=== PATIENT | male | born 1945 | race Caucasian/White ===

== ENCOUNTER 2022-11-29 14:01 | Outpatient (OUT) | payer MEDICARE, SELFPAY ==
--- NOTE | 2022-11-29 | ECG_ITS ---
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
[2022-11-29 14:45] LABS: Basophils Absolute Auto 0.1 10^3/uL (0.0-0.1); Basophils Percent Auto 0.8 % (0.2-2.0); Eosinophils Absolute Auto 0.2 10^3/uL (0.0-0.7); Eosinophils Percent Auto 2.4 % (0.9-7.0); Hematocrit 35.3 % (42.0-54.0); Hemoglobin 11.7 g/dL (14.0-18.0); Immature Granulocytes Abs Auto 0.02 10^3/uL (0.00-0.03); Immature Granulocytes Pct Auto 0.3 % (0.0-0.5); Lymphocytes Absolute Auto 1.9 10^3/uL (1.2-3.8); Mean Corpuscular HGB Conc 33.1 g/dL (29.9-35.2); Mean Corpuscular Volume 93.6 fL (80.0-94.0); Mean Platelet Volume 9.5 fL (9.5-13.5); Monocytes Absolute Auto 0.5 10^3/uL (0.3-0.8); Monocytes Percent Auto 7.9 % (1.7-12.0); Neutrophils Absolute Auto 3.7 10^3/uL (1.4-6.5); Neutrophils Percent Auto 58.6 % (43.0-75.0); Platelet Count 191 10^3/uL (150-450); Red Blood Count 3.77 10^6/uL (4.70-6.10); Red Cell Distribution Width 14.8 % (11.0-15.0); White Blood Count 6.2 10^3/uL (4.0-11.0)
[2022-11-29 15:15] LABS: Percent Iron Saturation 35.8 %
[2022-11-29 15:20] LABS: Estimated Average Glucose 189 mg/dL; Glycohemoglobin A1C 8.2 % (4.5-6.2)
[2022-11-29 15:26] LABS: Anion Gap 14.5; BUN Creatinine Ratio 18.8; Calcium 8.9 mg/dL (8.5-10.1); Carbon Dioxide 23.8 mmol/L (21.0-32.0); Chloride 104 mmol/L (98-107); Estimated GFR (African America >60 (>=60); Estimated GFR (Non-African Ame >60 (>=60); Glucose 191 mg/dL (74-106); Potassium 4.3 mmol/L (3.5-5.1); Sodium 138 mmol/L (136-145); Thyroid Stimulating Hormone 0.902 uIU/mL (0.358-3.740)
== END 2022-11-29 14:02 ==
LOC: LAB 14:06
PROVIDERS: PCP Internal Medicine; Visit Provider Internal Medicine
DX: I10 Essential (primary) hypertension (principal); D64.9 Anemia, unspecified; E11.65 Type 2 diabetes mellitus with hyperglycemia
CPT/HCPCS: 36415; 80048; 82607; 82728; 82746; 83036; 83540; 83550; 84443; 85025; 93005

== ENCOUNTER 2022-11-30 09:38 | Emergency (ER) | payer MEDICARE, SELFPAY ==
[2022-11-30] VITALS (10 sets, daily range): BP systolic 122–171; BP diastolic 69–89; PULSE 62–85; RESP 14–24; TEMP 36.4; O2SAT 94–97; BMI 26.9
--- NOTE | 2022-11-30 10:02 | XR_ITS ---
The [address] [address] Patient Name: GRECIA MCCORD MRN: [id number] date: 1945 Sex: M Assigned Patient Location: ER Current Patient Location: ER Accession/Order Number: [id number] Exam Date: 11/30/2022 10:16 Report Date: 11/30/2022 10:27 At the request of: TIFFANY LIRIANO Procedure: XR chest 1V EXAM: XR chest 1V HISTORY: . dizziness . COMPARISON: None. TECHNIQUE: Single view of the chest FINDINGS: Heart and vascularity are unremarkable. Lungs are free of focal infiltrates. Grossly no bony abnormality is appreciated. IMPRESSION: No acute heart or lung disease identified. Electronically authenticated by: SHAYNE RAMIREZ Date: 11/30/2022 10:27
--- NOTE | 2022-11-30 10:02 | ECG_ITS ---
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
--- NOTE | 2022-11-30 10:04 | ED.GENADUL1 ---
HPI - General Adult General Chief complaint: Chest Pain Stated complaint: EVALUATION FOR EKG/ SUSPICIOUS ACTIVITY Time Seen by Provider: 11/30/22 09:56 Source: patient and family Mode of arrival: walk-in Limitations: no limitations History of Present Illness HPI narrative: patient has been feeling dizzy and experiencing shortness of breath over the last few days. Dr Wisdom did an EKG that revealed inverted T waves so he sent the patient to the ED for evaluation. The patient told me that the shortness of breath occurs when he is exerting himself and does not happen at rest. He has DM, HTN and high cholesterol but no cardiac history. About 20 years ago he ahd a cardiac cath - he told me it was normal . On questioning he admitted that he has had some episodes of chest pressure or tightness over the last month. No cough, fever or vomiting. No abdominal pain. Related Data Allergies Allergy/AdvReac Type Severity Reaction Status Date / Time No Known Drug Allergies Allergy Verified 11/30/22 09:46 [facility] Medical History (Updated 11/30/22 @ 12:13 by Tiffany Liriano) Surgical History (Updated 11/30/22 @ 09:57 by Shayne Acosta) Exam Narrative Exam Narrative: Nurses notes and vital signs reviewed and patient is not hypoxic. afebrile General: Well-appearing and in no apparent distress. Skin: Warm, dry, no pallor noted. No rash. Head: Normocephalic, atraumatic. Eye: Pupils are equal, round and EOMI. No scleral icterus. Ears, Nose, Mouth, and Throat: Oral mucosa is moist Cardiovascular: Regular Rate and Rhythm without murmur, gallop or rub. Respiratory: No accessory muscle use or respiratory distress. Lungs are clear to auscultation, no wheezing, rales or rhonchi Chest Wall: no tenderness Musculoskeletal: normal ROM, no calf or popliteal tenderness, no lower extremity edema/swelling GI: Abdomen is soft, non-distended. Normal bowel sounds. No tenderness to palpation. No rebound, guarding, or rigidity noted. Neurological: A&O x4. No cranial nerve dysfunction observed. No truncal ataxia. Moves all extremities. Sensation intact. Psychiatric: Cooperative and interactive. Normal mood and affect. Constitutional Vital Signs - 24 hr 11/30/22 09:42 11/30/22 09:45 11/30/22 09:45 Temperature 97.6 F Pulse Rate 71 Pulse Rate [Monitor] 85 Respiratory Rate 18 24 Blood Pressure 171/89 H Blood Pressure [Left Arm] 171/69 H Pulse Oximetry 95 95 96 Oxygen Delivery Method Room Air 11/30/22 10:34 11/30/22 09:45 11/30/22 10:26 Temperature Pulse Rate 74 68 Pulse Rate [Monitor] Respiratory Rate 14 22 Blood Pressure 171/89 H 127/83 H Blood Pressure [Left Arm] Pulse Oximetry 95 97 94 L Oxygen Delivery Method Room Air 11/30/22 10:30 11/30/22 10:45 11/30/22 11:00 Temperature Pulse Rate 66 62 67 Pulse Rate [Monitor] Respiratory Rate 18 23 17 Blood Pressure 125/77 H 124/80 H 127/81 H Blood Pressure [Left Arm] Pulse Oximetry 94 L 94 L 95 Oxygen Delivery Method 11/30/22 12:02 Temperature Pulse Rate 65 Pulse Rate [Monitor] Respiratory Rate 16 Blood Pressure 122/69 H Blood Pressure [Left Arm] Pulse Oximetry 96 Oxygen Delivery Method Course Vital Signs Vital signs: Vital Signs Temperature 97.6 F 11/30/22 09:42 Pulse Rate 85 11/30/22 09:42 Respiratory Rate 18 11/30/22 09:42 Blood Pressure 171/69 H 11/30/22 09:42 Pulse Oximetry 95 11/30/22 09:42 Oxygen Delivery Method Room Air 11/30/22 09:42 Temperature 97.6 F 11/30/22 09:42 Pulse Rate 65 11/30/22 12:02 Respiratory Rate 16 11/30/22 12:02 Blood Pressure 122/69 H 11/30/22 12:02 Pulse Oximetry 96 11/30/22 12:02 Oxygen Delivery Method Room Air 11/30/22 10:34 Medical Decision Making MDM Narrative Medical decision making narrative: Patient was placed on teletypesetter monitor and EKG obtained. Blood drawn and sent for evaluation. CXR obtained. Workup was negative. I discussed the results with Dr Wisdom and he recommended discharge and will manage the patient on an out-patient basis. I spoke with the and patient and informed them of the plan. IO emphasized that if the patient developed shortness of breath at rest, passed out, had return of chest pain or any other worrisome symptoms that he should return for ED evaluation. Lab Data Lab results reviewed: Yes I reviewed the patient's lab results Labs: Lab Results 11/30/22 Range/Units 09:53 WBC 5.8 (4.0-11.0) 10^3/uL RBC 4.21 L (4.70-6.10) 10^6/uL Hgb 13.0 L (14.0-18.0) g/dL Hct 39.4 L (42.0-54.0) % MCV 93.6 (80.0-94.0) fL MCH 30.9 (25.9-34.0) pg MCHC 33.0 (29.9-35.2) g/dL RDW 14.8 (11.0-15.0) % Plt Count 192 (150-450) 10^3/uL MPV 9.6 (9.5-13.5) fL Neut % (Auto) 57.7 (43.0-75.0) % Lymph % (Auto) 30.9 (20.5-60.0) % [place] % (Auto) 8.5 (1.7-12.0) % Eos % (Auto) 2.2 (0.9-7.0) % Baso % (Auto) 0.5 (0.2-2.0) % Neut # (Auto) 3.3 (1.4-6.5) 10^3/uL Lymph # (Auto) 1.8 (1.2-3.8) 10^3/uL [place] # (Auto) 0.5 (0.3-0.8) 10^3/uL Eos # (Auto) 0.1 (0.0-0.7) 10^3/uL Baso # (Auto) 0.0 (0.0-0.1) 10^3/uL Abs Immat Gran (auto) 0.01 (0.00-0.03) 10^3/uL Imm/Tot Granulo (auto) 0.2 (0.0-0.5) % Sodium 137 (136-145) mmol/L Potassium 4.5 (3.5-5.1) mmol/L Chloride 102 (98-107) mmol/L Carbon Dioxide 23.9 (21.0-32.0) mmol/L Anion Gap 15.6 BUN 14.0 (7.0-18.0) mg/dL Creatinine 0.80 (0.70-1.30) mg/dL Est GFR ( Amer) >60 (>=60) Est GFR (Non-Af Amer) >60 (>=60) BUN/Creatinine Ratio 17.5 Glucose 175 H (74-106) mg/dL Calcium 9.1 (8.5-10.1) mg/dL Troponin I High Sens 4.2 (4.0-76.1) pg/mL NT-Pro-B Natriuret Pep 47.0 (<=1800.0) pg/mL Imaging Data Chest x-ray: Attestation: I have reviewed the pertinent imaging results. Radiologist's impression: Patient Name: GRECIA MCCORD MRN: [facility]:[id number] date: 1945 Sex: M Assigned Patient Location: ER Current Patient Location: ER Accession/Order Number: [id number] Exam Date: 11/30/2022 10:16 Report Date: 11/30/2022 10:27 At the request of: TIFFANY LIRIANO Procedure: XR chest 1V EXAM: XR chest 1V HISTORY: . dizziness . COMPARISON: None. TECHNIQUE: Single view of the chest FINDINGS: Heart and vascularity are unremarkable. Lungs are free of focal infiltrates. Grossly no bony abnormality is appreciated. IMPRESSION: No acute heart or lung disease identified. Electronically authenticated by: SHAYNE RAMIREZ Date: 11/30/2022 10:27 ECG Data Attestation: ?I have reviewed the pertinent ECG results. Interpretation: EKG interpretation: Emergency Department physician interpretation. Normal sinus rhythm at 72bpm. Normal axis, normal intervals and non-specific changes without ST segment elevation or depression. Lead III T wave is flat but no T wave inversion is noted. Similar to EKG from 08/14/16 Discharge Plan Discharge Chief Complaint: Chest Pain Clinical Impression: Exertional dyspnea, Dizziness Patient Disposition: Home, Self-Care Time of Disposition Decision: 12:12 Instructions: Dyspnea (ED), Dizziness (ED) Stand Alone Forms: Portal Instructions Referrals: Luis Enrique Wisdom DO [Primary Care Provider] - 1 week
[2022-11-30 10:10] LABS: Basophils Percent Auto 0.5 % (0.2-2.0); Eosinophils Absolute Auto 0.1 10^3/uL (0.0-0.7); Eosinophils Percent Auto 2.2 % (0.9-7.0); Hematocrit 39.4 % (42.0-54.0); Immature Granulocytes Abs Auto 0.01 10^3/uL (0.00-0.03); Immature Granulocytes Pct Auto 0.2 % (0.0-0.5); Lymphocytes Absolute Auto 1.8 10^3/uL (1.2-3.8); Lymphocytes Percent Auto 30.9 % (20.5-60.0); Mean Corpuscular Hemoglobin 30.9 pg (25.9-34.0); Mean Corpuscular Volume 93.6 fL (80.0-94.0); Mean Platelet Volume 9.6 fL (9.5-13.5); Monocytes Absolute Auto 0.5 10^3/uL (0.3-0.8); Monocytes Percent Auto 8.5 % (1.7-12.0); Neutrophils Absolute Auto 3.3 10^3/uL (1.4-6.5); Neutrophils Percent Auto 57.7 % (43.0-75.0); Platelet Count 192 10^3/uL (150-450); Red Blood Count 4.21 10^6/uL (4.70-6.10); Red Cell Distribution Width 14.8 % (11.0-15.0); White Blood Count 5.8 10^3/uL (4.0-11.0)
[2022-11-30] MEDS: 0.9 % SODIUM CHLORIDE 1,000 ML 1000 ML IV (10:24)
[2022-11-30 10:32] LABS: Anion Gap 15.6; BUN Creatinine Ratio 17.5; Calcium 9.1 mg/dL (8.5-10.1); Carbon Dioxide 23.9 mmol/L (21.0-32.0); Chloride 102 mmol/L (98-107); Estimated GFR (African America >60 (>=60); Estimated GFR (Non-African Ame >60 (>=60); Glucose 175 mg/dL (74-106); Potassium 4.5 mmol/L (3.5-5.1); Sodium 137 mmol/L (136-145); Troponin I High Sensitivity 4.2 pg/mL (4.0-76.1)
== END 2022-11-30 12:28 | disposition home or self-care (01) ==
PROVIDERS: Emergency Provider Emergency Medicine; PCP Internal Medicine
DX: R06.09 Other forms of dyspnea (principal); R42 Dizziness and giddiness; E11.9 Type 2 diabetes mellitus without complications; I10 Essential (primary) hypertension; E78.00 Pure hypercholesterolemia, unspecified
CPT/HCPCS: 36415; 71045; 80048; 83880; 84484; 85025; 93005; 99285

== ENCOUNTER 2022-12-15 07:48 | Outpatient (OUT) | payer MEDICARE, SELFPAY ==
--- NOTE | 2022-12-15 07:52 | MR_ITS ---
The [address] [address] Patient Name: GRECIA MCCORD MRN: [id number] date: 1945 Sex: M Assigned Patient Location: US Current Patient Location: US Accession/Order Number: [id number] Exam Date: 12/15/2022 08:30 Report Date: 12/15/2022 09:26 At the request of: RITA ZHAO Procedure: MR head/brain wo con EXAM: MR head/brain wo con HISTORY: Type 2 Diabetes E11.65, Dizziness R42 COMPARISON: None. TECHNIQUE: Multiplanar multisequence MR imaging of the brain was performed without intravenous contrast FINDINGS: Calvarium/skull base: No focal marrow replacing lesion suggestive of neoplasm. Trace left greater than right mastoid fluid. Orbits: Bilateral sauk-su[place]attle ocular lens replacements. Paranasal sinuses: Imaged portions clear Brain: No restricted diffusion. No significant white matter disease. Parenchymal volume is grossly appropriate. No mass effect, hemorrhage, or hydrocephalus. Grossly normal flow-related signal in the major intracranial arteries and dural sinuses. IMPRESSION: No acute intracranial process. Electronically authenticated by: DIANA CALDWELL Date: 12/15/2022 09:26
--- NOTE | 2022-12-15 07:53 | US_ITS ---
[address] [address] Patient Name: GRECIA MCCORD MRN: [id number] date: 1945 Sex: M Assigned Patient Location: Current Patient Location: US Accession/Order Number: [id number] Exam Date: 12/15/2022 07:55 Report Date: 12/15/2022 09:43 At the request of: RITA ZHAO Procedure: US carotid duplex BI EXAMINATION: US carotid duplex BI HISTORY: Palpitation R00.2, Dizziness R42 COMPARISON: No relevant comparison available. TECHNIQUE: Duplex Doppler ultrasound analysis of carotid and vertebral arteries. . Bilateral carotid arterial duplex examination was performed using B-mode, color flow and spectral analysis. Carotid stenosis is reported according to validated velocity parameters, similar to NASCET criteria. FINDINGS: RIGHT CAROTID ARTERY: No visible stenosis or significant plaque. RIGHT VERTEBRAL: Antegrade flow. Subclavian: PSV: 149.6 cm/s EDV: 0.0 cm/s CCA: Prox: PSV: 85.4 cm/s EDV: 17.6 cm/s Mid: PSV: 87.9 cm/s EDV: 18.0 cm/s Distal: PSV: 67.7 cm/s EDV: 14.5 cm/s BULB: PSV: 47.3 cm/s EDV: 8.9 cm/s ICA: Prox: PSV: 68.8 cm/s EDV: 16.0 cm/s Mid: PSV: 78.7 cm/s EDV: 22.6 cm/s Distal: PSV: 100.4 cm/s EDV: 25.4 cm/s ECA: PSV: 112.1 cm/s EDV: 7.2 cm/s VERTEBRAL: PSV: 42.0 cm/s EDV: 12.9 cm/s ICA/CCA ratio: PSV: 1.5 EDV: 1.8 LEFT CAROTID ARTERY: No visible stenosis or significant plaque. LEFT VERTEBRAL: Antegrade flow. Subclavian: PSV: 214.2 cm/s EDV: 0.0 cm/s CCA: Prox: PSV: 106.2 cm/s EDV: 21.5 cm/s Mid: PSV: 110.2 cm/s EDV: 23.5 cm/s Distal: PSV: 82.6 cm/s EDV: 17.5 cm/s BULB: PSV: 72.7 cm/s EDV: 13.6 cm/s ICA: Prox: PSV: 102.3 cm/s EDV: 25.4 cm/s Mid: PSV: 96.3 cm/s EDV: 35.3 cm/s Distal: PSV: 82.6 cm/s EDV: 31.3 cm/s ECA: PSV: 112.1 cm/s EDV: 11.6 cm/s VERTEBRAL: PSV: 52.3 cm/s EDV: 9.5 cm/s ICA/CCA ratio: PSV: 1.2 EDV: 1.4 IMPRESSION: 1. 0-49% flow stenosis within the right left carotid arteries. 2. No significant atherosclerotic disease. Electronically authenticated by: GERTRUDE VALENTINO Date: 12/15/2022 09:43
--- NOTE | 2022-12-15 10:23 | CA_ITS ---
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
--- NOTE | 2022-12-15 10:23 | CA_ITS ---
Patient: GRECIA MCCORD Exam Date: 12/15/2022 : 1945 Gender:M Ordering : DR Luis Enrique Wisdom D.O. Admission #: [id number] Family : Order #: [id number] CLICK HERE TO VIEW EXAM ECHOCARDIOGRAM REPORT PROCEDURE: CA ECHO DOPPLER COMPLETE INDICATIONS: Hypertension, Dizziness, Palpitation, Diabetes COMPARISON: None. DESCRIPTION: COMPLETE ECHOCARDIOGRAM Real-time transthoracic echocardiography with 2D, M-mode, spectral and color flow Doppler performed. QUALITY: Technical quality was good. LEFT VENTRICLE: Normal chamber size. Normal left ventricular wall thickness. Normal systolic function. LV EF: Normal left ventricular ejection fraction, (60%). DIASTOLIC: Diastolic function is indeterminate. ATRIAL SEPTUM: Visually appears intact. LEFT ATRIUM: Moderate dilatation. RIGHT ATRIUM: Moderate dilatation. RIGHT VENTRICLE: Normal chamber size. Normal right ventricular systolic function. TRICUSPID VALVE: Normal mobility and thickness. No stenosis with mild to moderate regurgitation. Doppler studies reveal mildly (35-45) elevated right sided pressures. RVSP 39 mmHg MITRAL VALVE: Mildly thickened with normal mobility. No evidence of mitral valve stenosis. There is no mitral annular calcification. No mitral regurgitation. AORTIC VALVE: Normal trileaflet appearance. No visible sclerosis. Normal leaflet mobility. No evidence of aortic valve stenosis. No aortic regurgitation. AORTIC ROOT: Normal diameter and appearance. PULMONIC VALVE: Normal thickness and mobility. No stenosis. Trivial regurgitation. PERICARDIUM: No evidence of pericardial effusion. IVC: Collapses with inspirations. Normal in size. PLEURA: CONCLUSION: 1. Normal ventricular systolic function. LVEF is 60%. 2. Moderate biatrial dilatation. 3. Mild to moderate tricuspid regurgitation. 4. Mildly elevated right-sided pressures. Adult Echocardiography Procedure Report Left Ventricle LVEDD (3.7 - 5.6 cm): 4.60 cm LVESD (2.2 - 4.0 cm): 2.94 cm LVIVS thickness (0.6 - 1.2 cm): 0.87 cm LVPW thickness (0.5 - 1.0 cm): 0.98 cm e': 0.10 m/s E - e': 7.83 LVOT Max Gradient: 5.08 mm[Hg] LVOT Area (cm2): 1.13 m/s Peak Velocity (LVOT): 1.13 m/s Mean Velocity (LVOT): 0.75 m/s LVOT Diameter 2.28 cm Left Atrium LA Volume Index (2D A2C): 44.02 ml/m2 Left Atrium Systolic Dimension: 4.05 cm Mitral Valve MV E to A Ratio: 1.00 Mitral Valve A-Wave Peak Velocity: 0.80 m/s Mitral Valve E-Wave Peak Velocity: 0.81 m/s Right Ventricle Aorta AO Root Diam: 3.46 cm Ascending Ao Diam: 2.86 cm Aortic Valve AoV Area (Peak Espinoza): 3.11 cm2, 3.11 cm2 Peak Velocity(Antegrade Flow): 1.48 m/s Peak Gradient(Antegrade Flow): 8.78 mm[Hg] Tricuspid Valve Peak Velocity (Regurgitant Flow): 2.93 m/s, 2.92 m/s, 2.99 m/s Pulmonic Valve Peak Velocity: 1.13 m/s Peak Gradient: 5.01 mm[Hg], 5.21 mm[Hg] Right Atrium Right Atrium Systolic Pressure: 56.09 ml, 56.09 ml Dictated by: Catracho Mancia M.D. on 12/16/2022 at 18:41 Approved by: Catracho Mancia M.D. on 12/16/2022 at 18:44
== END 2022-12-15 07:49 | disposition home or self-care (01) ==
LOC: US 07:49
PROVIDERS: PCP Internal Medicine; Visit Provider Internal Medicine
DX: E11.65 Type 2 diabetes mellitus with hyperglycemia (principal); I10 Essential (primary) hypertension; R42 Dizziness and giddiness; R00.2 Palpitations
CPT/HCPCS: 70551; 93242; 93306; 93880

== ENCOUNTER 2023-04-10 10:20 | Outpatient (OUT) | payer MEDICARE, SELFPAY ==
[2023-04-10 10:47] LABS: Basophils Percent Auto 0.7 % (0.2-2.0); Eosinophils Absolute Auto 0.1 10^3/uL (0.0-0.7); Eosinophils Percent Auto 2.4 % (0.9-7.0); Hemoglobin 11.8 g/dL (14.0-18.0); Immature Granulocytes Abs Auto 0.02 10^3/uL (0.00-0.03); Immature Granulocytes Pct Auto 0.4 % (0.0-0.5); Lymphocytes Percent Auto 36.6 % (20.5-60.0); Mean Corpuscular HGB Conc 32.8 g/dL (29.9-35.2); Mean Corpuscular Hemoglobin 31.1 pg (25.9-34.0); Mean Platelet Volume 9.9 fL (9.5-13.5); Monocytes Absolute Auto 0.5 10^3/uL (0.3-0.8); Monocytes Percent Auto 9.3 % (1.7-12.0); Neutrophils Absolute Auto 2.8 10^3/uL (1.4-6.5); Neutrophils Percent Auto 50.6 % (43.0-75.0); Platelet Count 157 10^3/uL (150-450); Red Blood Count 3.79 10^6/uL (4.70-6.10); Red Cell Distribution Width 12.7 % (11.0-15.0); White Blood Count 5.5 10^3/uL (4.0-11.0)
[2023-04-10 11:47] LABS: Percent Iron Saturation 25.1 %
[2023-04-10 11:52] LABS: Alanine Aminotransferase 21 U/L (16-63); Albumin Globulin Ratio 1.1; Albumin Level 3.8 g/dL (3.4-5.0); Alkaline Phosphatase 81 U/L (46-116); Anion Gap 14.3; Aspartate Amino Transferase 14 U/L (15-37); BUN Creatinine Ratio 17.6; Bilirubin Total 0.5 mg/dL (0.2-1.0); Calcium 8.7 mg/dL (8.5-10.1); Carbon Dioxide 25.8 mmol/L (21.0-32.0); Chloride 102 mmol/L (98-107); Estimated GFR (African America >60 (>=60); Estimated GFR (Non-African Ame >60 (>=60); Globulin 3.5 g/dL; Glucose 186 mg/dL (74-106); Potassium 4.1 mmol/L (3.5-5.1); Sodium 138 mmol/L (136-145); Total Protein 7.3 g/dL (6.4-8.2)
== END 2023-04-10 10:21 | disposition home or self-care (01) ==
PROVIDERS: PCP Internal Medicine; Visit Provider Internal Medicine
DX: D64.89 Other specified anemias (principal); R19.5 Other fecal abnormalities
CPT/HCPCS: 36415; 80053; 82728; 83540; 83550; 85025

== ENCOUNTER 2023-06-27 08:37 | Outpatient (OUT) | payer MEDICARE, SELFPAY ==
--- OUTSIDE RECORDS SUMMARY | 2023-06-27 08:43 | XMS_ITS | CCD ---
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 Name Role Phone PAVEL, DR SALINAS Attending Unavailable BALL, DR SALINAS Consulting Unavailable BALL, DR SALINAS Primary Care Unavailable BALL, DR SALINAS Admitting Unavailable BALL, DR SALINAS Consulting Unavailable BALL, DR SALINAS Primary Care Unavailable BALL, DR SALINAS Admitting Unavailable BALL, DR SALINAS Attending Unavailable BALL, DR SALINAS Consulting Unavailable BALL, DR SALINAS Primary Care Unavailable BALL, DR SALINAS Admitting Unavailable BALL, DR SALINAS Attending Unavailable BALL, DR SALINAS Attending Unavailable BALL, DR SALINAS Consulting Unavailable BALL, DR SALINAS Primary Care Unavailable BALL, DR SALINAS Admitting Unavailable Ball, Luis Enrique Unavailable Allergies Allergy Classification Reported Allergen(s) Allergy Type Date of Onset Reaction(s) Facility (12 sources) Indomethacin Drug Allergy Unknown [place] Other Medications Current Medications Medication Drug Class(es) Dates Sig (Normalized) Sig (Original) 24 hr alfuzosin hydrochloride 10 mg extended release oral tablet (3 sources) alpha-Adrenergic Sydney Alfuzosin HCl ER 10 MG TAKE 1 TABLET EVERY DAY for 90 Active baclofen 10 mg oral tablet (12 sources) gamma-Aminobutyric Acid-ergic Agonist take 1 tablet by mouth every twelve hours Baclofen 10 MG 1 tablet as needed Orally Twice a day Active 0.5 ml dulaglutide 1.5 mg/ml auto-injector (5 sources) GLP-1 Receptor Agonist Start: 04-10-2023 Trulicity 0.75 MG/0.5ML as directed Subcutaneous weekly for 28 days Mar, Active escitalopram 5 mg oral tablet (12 sources) Serotonin Reuptake Inhibitor Escitalopram Oxalate 5 MG TAKE 1 TABLET AT BEDTIME for 90 Active glimepiride 4 mg oral tablet (12 sources) Sulfonylurea Glimepiride 4 MG TAKE 1 TABLET EVERY DAY 30 MINUTES BEFORE BREAKFAST for 90 Active lisinopril 5 mg oral tablet (3 sources) Angiotensin Converting Enzyme Inhibitor take 1 tablet by mouth every twenty-four hours Lisinopril 5 MG 1 tablet Orally Once a day Active omeprazole 20 mg delayed release oral capsule (12 sources) Proton Pump Inhibitor Omeprazole 20 MG TAKE 1 CAPSULE EVERY DAY ON AN EMPTY STOMACH FOLLOWED IN 30 MINUTES BY BREAKFAST Active pioglitazone 30 mg oral tablet (12 sources) Peroxisome Proliferator Receptor alpha Agonist, Peroxisome Proliferator Receptor gamma Agonist, Thiazolidinedione take 1 tablet by mouth once daily Pioglitazone HCl 30 MG TAKE 1 TABLET BY MOUTH EVERY DAY Active simvastatin 10 mg oral tablet (12 sources) HMG-CoA Reductase Inhibitor take 1 tablet by mouth every twenty-four hours Simvastatin 10 MG 1 tablet in the evening Orally Once a day Active triamcinolone acetonide 1 mg/ml topical cream (12 sources) Corticosteroid Triamcinolone Acetonide 0.1 % 1 application Externally Two times a Week Active Triamcinolone Ac etonide 0.1 % 1 application Externally Two times a Week Active True Metrix Blood Glucose Te st - (12 sources) True Metrix Bloo d Glucose Test - USE TO TEST BLOOD SUGAR ONCE DAILY for 50 Active True Metrix Bloo d Glucose Test - as directed In Vitro Active Problems Active Problems Problem Classification Problem Date Documented Da te Episodic/Chronic Acute bronchitis (12 sources) Acute bronchitis; Translations: [Acute bronchitis due to other specified organisms] Episodic Anxiety disorders (10 sources) Generalized anxiety disorder; Translations: [Generalized anxiety disorder] Chronic Conditions associated with dizziness or vertigo (1 source) Dizziness and giddiness Episodic Deficiency and other anemia (11 sources) Chronic anemia; Translations: [Anemia in other chronic diseases classified elsewhere] Chronic Deficiency and other anemia (1 source) Anemia in other chronic diseases classified elsewhere; Translations: [Anemia in other chronic diseases classified elsewhere] Chronic Deficiency and other anemia (6 sources) Iron deficiency anemia, unspecified; Translations: [IRON DEFICIENCY ANEMIA UNSPECIFIED] Onset: 03-31-2022 Episodic Deficiency and other anemia (5 sources) Other specified anemias; Translations: [OTHER SPECIFIED ANEMIAS] Onset: 04-05-2022 Episodic Deficiency and other anemia (14 sources) Anemia; Translations: [Other specified anemias] Episodic Deficiency and other anemia (13 sources) Iron deficiency anemia; Translations: [Iron deficiency anemia, unspecified] Episodic Diabetes mellitus with complications (20 sources) Type 2 diabetes mellitus with hyperglycemia; Translations: [Hyperglycemia due to type 2 diabetes mellitus] Onset: 09-27-2021 Chronic Disorders of lipid metabolism (20 sources) Mixed hyperlipidemia; Translations: [Mixed hyperlipidemia] Onset: 06-12-1959 Chronic Esophageal disorders (10 sources) Moulton's esophagus; 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] Chronic Essential hypertension (20 sources) Essential (primary) hypertension; Translations: [Essential hypertension] Onset: 01-11-2022 Chronic Genitourinary symptoms and ill-defined conditions (12 sources) Dysuria; Translations: [Dysuria] Episodic Hyperplasia of prostate (16 sources) Lower urinary tract symptoms due to benign prostatic hypertrophy; Translations: [Benign prostatic hyperplasia with lower urinary tract symptoms] Chronic Immunizations and screening for infectious disease (3 sources) Vaccination given; Translations: [Encounter for immunization] Episodic Mood disorders (2 sources) Depression; Translations: [Depression, unspecified] Onset: 05-20-2014 Chronic Mood disorders (1 source) Mood disorders; Translations: [Depression, unspecified] Onset: 05-20-2014 Mycoses (12 sources) Candidal balanitis; Translations: [Candidal balanitis] Episodic Osteoarthritis (3 sources) Idiopathic osteoarthritis; 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, right knee] Onset: 05-15-2018 Chronic Other aftercare (11 sources) H/O: high risk medication; Translations: [Other usp (current) drug therapy] Episodic Other aftercare (3 sources) Long-term current use of drug therapy; Translations: [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] Episodic Other aftercare (1 source) Other usp (current) drug therapy; Translations: [High risk medication use] Episodic Other circulatory disease (1 source) Other specified symptoms and signs involving the circulatory and respiratory systems Episodic Other gastrointestinal disorders (1 source) Other fecal abnormalities Episodic Other injuries and conditions due to external causes (3 sources) History of fall; Translations: [History of falling] Episodic Other screening for suspected conditions (not mental disorders or infectious disease) (4 sources) Raised prostate specific antigen; Translations: [Elevated prostate specific antigen [PSA]] Onset: 11-15-2016 Episodic Other skin disorders (12 sources) Asteatosis cutis; Translations: [Xerosis cutis] Episodic Other upper respiratory disease (6 sources) Allergic rhinitis; Translations: [Other allergic rhinitis] Onset: 01-25-2019 Chronic Residual codes; unclassified (15 sources) Tobacco user; Translations: [Tobacco use] Episodic Spondylosis; intervertebral disc disorders; other back problems (15 sources) Lumbar spondylosis; Translations: [Spondylosis without myelopathy or radiculopathy, lumbar region] Chronic Substance-related disorders (14 sources) Tobacco user; Translations: [Nicotine dependence, cigarettes, in remission] Chronic Past or Other Problems Problem Classification Problem Date Documented Da te Episodic/Chronic Deficiency and other anemia (4 sources) Anemia, unspecified; Translations: [ANEMIA UNSPECIFIED] Onset: 06-29-2021 Episodic Esophageal disorders (10 sources) Esophageal disorders; Translations: [Gastroesophageal reflux disease with esophagitis without hemorrhage] Other nutritional; endocrine; and metabolic disorders (2 sources) Overweight; Translations: [Overweight] Onset: 03-26-2020 Resolved: 04-06-2022 Episodic Other nutritional; endocrine; and metabolic disorders (1 source) Overweight; Translations: [Overweight] Onset: 03-26-2020 Resolved: 04-06-2022 Episodic Other skin disorders (2 sources) Localized swelling, mass and lump, neck; Translations: [Localized swelling, mass and lump, neck] Onset: 07-02-2015 Episodic Other skin disorders (1 source) Localized swelling, mass and lump, neck; Translations: [Localized swelling, mass and lump, neck] Onset: 07-02-2015 Episodic Unclassified (1 source) Special screening for malignant neoplasms, colon; Translations: [Special screening for malignant neoplasms, colon] Onset: 05-21-2015 Results Test Name Value Interpretation Reference Range Facil ity METHYLMALONIC ACID (MMA)on Methylmalonic Acid, Serum 151 nmol/L Normal 0-378 [facility] Comment on above: Performed By: #### C BC #### [facility] [address] [address] [address] Kathy Will CBC AUTO DIFFon 03-31-2022 BASO # 0.0 103/ul Normal 0.0-0.1 [facility] Comment on above: Performed By: #### C BC #### [facility] [address] [address] [address] Kathy Will Basophils/100 WBC (Bld) 0.8 % Normal 0.2-2.0 [facility] Comment on above: Performed By: #### C BC #### [facility] [address] [place] [address] Dr. Kathy Will EO # 0.2 103/ul Normal 0.0-0.7 [facility] Comment on above: Performed By: #### C BC #### [facility] [address] [place] [address] Dr. Kathy Will Eosinophils/100 WBC (Bld) 3.3 % Normal 0.9-7.0 [facility] Comment on above: Performed By: #### C BC #### [facility] [address] [place] [address] Dr. Kathy Will Erythrocyte distribution width (RBC) [Ratio] 13.4 % Normal 11.0-15.0 [facility] Comment on above: Performed By: #### C BC #### [facility] [address] [place] [address] Dr. Kathy Will Hematocrit (Bld) [Volume fraction] 38.4 % Critically low 42.0-54.0 [facility] Comment on above: Performed By: #### C BC #### [facility] [address] [place] [address] Dr. Kathy Will Hemoglobin (Bld) [Mass/Vol] 12.5 g/dL Critically low 14.0-18.0 [facility] Comment on above: Performed By: #### C BC #### [facility] [address] [place] [address] Dr. Kathy Will IG # 0.01 10e3/ul Normal 0.00-0.03 [facility] Comment on above: Performed By: #### C BC #### [facility] [address] [place] [address] Dr. Kathy Will IG % 0.2 % Normal 0.0-0.5 [facility] Comment on above: Performed By: #### C BC #### [facility] [address] [place] [address] Dr. Kathy Will LYMPH # 1.9 103/ul Normal 1.2-3.8 [facility] Comment on above: Performed By: #### C BC #### [facility] [address] [place] [address] Dr. Kathy Will Lymphocytes/100 WBC (Bld) 37.2 % Normal 20.5-60.0 [facility] Comment on above: Performed By: #### C BC #### [facility] [address] [place] [address] Dr. Kathy Will MANUAL DIFF REQ NO Normal [facility] Comment on above: Performed By: #### C BC #### [facility] [address] [place] [address] Dr. Kathy Will MCH (RBC) [Entitic mass] 31.8 pg Normal 25.9-34.0 [facility] Comment on above: Performed By: #### C BC #### [facility] [address] [place] [address] Dr. Kathy Will MCHC (RBC) [Mass/Vol] 32.6 g/dL Normal 29.9-35.2 [facility] Comment on above: Performed By: #### C BC #### [facility] [address] [place] [address] Dr. Kathy Will MCV (RBC) [Entitic vol] 97.7 fL Critically high 80.0-94.0 [facility] Comment on above: Performed By: #### C BC #### [facility] [address] [place] [address] Dr. Kathy Will MONO # 0.4 103/ul Normal 0.3-0.8 [facility] Comment on above: Performed By: #### C BC #### [facility] [address] [place] [address] Dr. Kathy Will Monocytes/100 WBC (Bld) 8.5 % Normal 1.7-12.0 [facility] Comment on above: Performed By: #### C BC #### [facility] [address] [place] [address] Dr. Kathy Will NEUT # 2.5 103/ul Normal 1.4-6.5 [facility] Comment on above: Performed By: #### C BC #### [facility] [address] [address] [address] Kathy Will Neutrophils/100 WBC (Bld) 50.0 % Normal 43.0-75.0 [facility] Comment on above: Performed By: #### C BC #### [facility] [address] [address] [address] Kathy Will Platelet mean volume (Bld) [Entitic vol] 10.1 fL Normal 9.5-13.5 [facility] Comment on above: Performed By: #### C BC #### [facility] [address] [place] [address] Dr. Kathy Will PLT 147 103/ul Critically low 150-450 [facility] Comment on above: Performed By: #### C BC #### [facility] [address] [address] [address] Kathy Will RBC 3.93 106/ul Critically low 4.70-6.10 [facility] Comment on above: Performed By: #### C BC #### [facility] [address] [address] [address] Kathy Will WBC 5.1 103/ul Normal 4.0-11.0 [facility] Comment on above: Performed By: #### C BC #### [facility] [address] [place] [address] Dr. Kathy Will FERRITINon 03-31-2022 Ferritin [Mass/Vol] 47.0 ng/mL Normal 26.0-388.0 [facility] Comment on above: Performed By: #### C BC #### [facility] [address] [address] [address] Kathy Will IRON AND TIBCon 03-31-2022 % SATURATION 39.5 % Normal [facility] Comment on above: Performed By: #### C BC #### [facility] [address] [address] [address] Kathy Will Iron [Mass/Vol] 139.0 ug/dL Normal 65.0-175.0 [facility] Comment on above: Performed By: #### C BC #### [facility] [address] [place] [address] Dr. Kathy Will TIBC DIRECT 352.0 ug/dL Normal 250.0-450.0 [facility] Comment on above: Performed By: #### C BC #### [facility] [address] [place] [address] Dr. Kathy Will RETICULOCYTEon 03-31-2022 RETIC 2.05 % Normal 0.60-3.10 [facility] Comment on above: Performed By: #### R ETIC, CBC #### [facility] [address] [place] [address] Dr. Kathy Will VITAMIN B12on 03-31-2022 Cobalamin (Vitamin B12) [Mass/Vol] 391.0 pg/mL Normal 193.0-986.0 [facility] Comment on above: Performed By: #### A 1C #### [facility] [address] [place] [address] Dr. Kathy Will METHYLMALONIC ACID (MMA)on 0 01-08-2022 Methylmalonic Acid, Serum 142 nmol/L Normal 0-378 [facility] Comment on above: Performed By: #### M MA2 #### [facility] [address] [place] [address] Dr. Kathy Will CBC AUTO DIFFon 01-05-2022 BASO # 0.1 103/ul Normal 0.0-0.1 [facility] Comment on above: Performed By: #### C BC #### [facility] [address] [place] [address] Dr. Kathy Will Basophils/100 WBC (Bld) 1.0 % Normal 0.2-2.0 [facility] Comment on above: Performed By: #### C BC #### [facility] [address] [place] [address] Dr. Kathy Will EO # 0.2 103/ul Normal 0.0-0.7 [facility] Comment on above: Performed By: #### C BC #### [facility] [address] [place] [address] Dr. Kathy Will Eosinophils/100 WBC (Bld) 3.1 % Normal 0.9-7.0 [facility] Comment on above: Performed By: #### C BC #### [facility] [address] [place] [address] Dr. Kathy Will Erythrocyte distribution width (RBC) [Ratio] 13.2 % Normal 11.0-15.0 [facility] Comment on above: Performed By: #### C BC #### [facility] [address] [place] [address] Dr. Kathy Will Hematocrit (Bld) [Volume fraction] 34.1 % Critically low 42.0-54.0 [facility] Comment on above: Performed By: #### C BC #### [facility] [address] [place] [address] Dr. Kathy Will Hemoglobin (Bld) [Mass/Vol] 11.5 g/dL Critically low 14.0-18.0 [facility] Comment on above: Performed By: #### C BC #### [facility] [address] [place] [address] Dr. Kathy Will IG # 0.01 10e3/ul Normal 0.00-0.03 [facility] Comment on above: Performed By: #### C BC #### [facility] [address] [place] [address] Dr. Kathy Will IG % 0.2 % Normal 0.0-0.5 [facility] Comment on above: Performed By: #### C BC #### [facility] [address] [place] [address] Dr. Kathy Will LYMPH # 2.0 103/ul Normal 1.2-3.8 [facility] Comment on above: Performed By: #### C BC #### [facility] [address] [place] [address] Dr. Kathy Will Lymphocytes/100 WBC (Bld) 38.6 % Normal 20.5-60.0 [facility] Comment on above: Performed By: #### C BC #### [facility] [address] [place] [address] Dr. Kathy Will MANUAL DIFF REQ NO Normal [facility] Comment on above: Performed By: #### C BC #### [facility] [address] [place] [address] Dr. Kathy Will MCH (RBC) [Entitic mass] 32.2 pg Normal 25.9-34.0 [facility] Comment on above: Performed By: #### C BC #### [facility] [address] [place] [address] Dr. Kathy Will MCHC (RBC) [Mass/Vol] 33.7 g/dL Normal 29.9-35.2 [facility] Comment on above: Performed By: #### C BC #### [facility] [address] [place] [address] Dr. Kathy Will MCV (RBC) [Entitic vol] 95.5 fL Critically high 80.0-94.0 [facility] Comment on above: Performed By: #### C BC #### [facility] [address] [place] [address] Dr. Kathy Will MONO # 0.5 103/ul Normal 0.3-0.8 [facility] Comment on above: Performed By: #### C BC #### [facility] [address] [place] [address] Dr. Kathy Will Monocytes/100 WBC (Bld) 9.2 % Normal 1.7-12.0 [facility] Comment on above: Performed By: #### C BC #### [facility] [address] [place] [address] Dr. Kathy Will NEUT # 2.4 103/ul Normal 1.4-6.5 [facility] Comment on above: Performed By: #### C BC #### [facility] [address] [place] [address] Dr. Kathy Will Neutrophils/100 WBC (Bld) 47.9 % Normal 43.0-75.0 [facility] Comment on above: Performed By: #### C BC #### [facility] [address] [place] [address] Dr. Kathy Will Platelet mean volume (Bld) [Entitic vol] 10.1 fL Normal 9.5-13.5 [facility] Comment on above: Performed By: #### C BC #### [facility] [address] [place] [address] Dr. Kathy Will PLT 157 103/ul Normal 150-450 [facility] Comment on above: Performed By: #### C BC #### [facility] [address] [address] [address] Kathy Will RBC 3.57 106/ul Critically low 4.70-6.10 [facility] Comment on above: Performed By: #### C BC #### [facility] [address] [address] [address] Kathy Will WBC 5.1 103/ul Normal 4.0-11.0 [facility] Comment on above: Performed By: #### C BC #### [facility] [address] [place] [address] Dr. Kathy Will FERRITINon 01-05-2022 Ferritin [Mass/Vol] 27.0 ng/mL Normal 26.0-388.0 [facility] Comment on above: Performed By: #### C BC #### [facility] [address] [place] [address] Dr. Kathy Will GLYCOHEMOGLOBIN A1Con 2021 ADA RECOMMENDATION SEE BELOW Normal [facility] Comment on above: Result Comment: ADA RECOMMENDED LIMIT 4.0 - 6.0 ADA THERAPEUTIC TARGET < 7.0 ACTION SUGGESTED > 7.0 Performed By: #### A 1C #### [facility] [address] [place] [address] Dr. Kathy Will Glucose [Mass/Vol] 169 mg/dL Normal [facility] Comment on above: Performed By: #### A 1C #### [facility] [address] [place] [address] Dr. Kathy Will HbA1c (Bld) [Mass fraction] 7.5 % Critically high 4.5-6.2 [facility] Comment on above: Performed By: #### A 1C #### [facility] [address] [place], [place] [address] Dr. Kathy Will IRON AND TIBCon 01-05-2022 % SATURATION 19.7 % Normal [facility] Comment on above: Performed By: #### C BC #### [facility] [address] [address] [address] Kathy Will Iron [Mass/Vol] 71.0 ug/dL Normal 65.0-175.0 [facility] Comment on above: Performed By: #### C BC #### [facility] [address] [address] [address] Kathy Will TIBC DIRECT 360.0 ug/dL Normal 250.0-450.0 [facility] Comment on above: Performed By: #### C BC #### [facility] [address] [place] [address] Dr. Kathy Will LIPID PROFILEon 01-05-2022 CHOL-HDL RATIO NORM SEE BELOW Normal [facility] Comment on above: Result Comment: 3.3 - 4.4 LOW RISK 4.4 - 7.1 AVERAGE RISK 7.1 - 11.0 MODERATE RISK >11.0 HIGH RISK Performed By: #### C BC #### [facility] [address] [address] [address] Kathy Will Cholesterol [Mass/Vol] 137 mg/dL Normal <=200 [facility] Comment on above: Performed By: #### C BC #### [facility] [address] [address] [address] Kathy Will Cholesterol in HDL [Mass/Vol] 42 mg/dL Normal 40-60 [facility] Comment on above: Performed By: #### C BC #### [facility] [address] [address] [address] Kathy Will Cholesterol in LDL [Mass/Vol] 66.2 mg/dL Normal [facility] Comment on above: Performed By: #### C BC #### [facility] [address] [place] [address] Dr. Kathy Will Cholesterol.total/Cho lesterol in HDL [Mass ratio] 3.3 {ratio} Normal [facility] Comment on above: Performed By: #### C BC #### [facility] [address] [address] [address] Kathy Will HDL NORMAL > or = 60 mg/dl - LOW CARDIOVASCULAR RISK <40 mg/dl - HIGH CARDIOVASCULAR RISK Normal [facility] Comment on above: Performed By: #### C BC #### [facility] [address] [address] [address] Kathy Will LDL CALC NORMAL SEE BELOW Normal [facility] Comment on above: Result Comment: <100 mg/dl OPTIMAL 100 - 129 mg/dl NEAR OR ABOVE OPTIMAL 130 - 159 mg/dl BORDERLINE HIGH 160 - 189 mg/dl HIGH >190 mg/dl VERY HIGH Performed By: #### C BC #### [facility] [address] [place] [address] Dr. Kathy Will Triglyceride [Mass/Vol] 144 mg/dL Normal <=150 [facility] Comment on above: Performed By: #### C BC #### [facility] [address] [address] [address] Kathy Will VLDL CALC 28.8 mg/dL Normal [facility] Comment on above: Performed By: #### C BC #### [facility] [address] [place] [address] Dr. Kathy Will MICROALBUMIN, RAND URon 07- mALB <1.3 Normal <=30.0 [facility] Comment on above: Performed By: #### M ALBR #### [facility] [address] [place] [address] Dr. Kathy Will PROF CHEM 8 (BAS METB)on Anion gap [Moles/Vol] 15.3 mmol/L Normal [facility] Comment on above: Performed By: #### C BC #### [facility] [address] [place] [address] Dr. Kathy Will Calcium [Mass/Vol] 8.8 mg/dL Normal 8.5-10.1 [facility] Comment on above: Performed By: #### C BC #### [facility] [address] [address] [address] Kathy Will Chloride [Moles/Vol] 104 mmol/L Normal 98-107 [facility] Comment on above: Performed By: #### C BC #### [facility] [address] [address] [address] Kathy Will CO2 [Moles/Vol] 23.9 mmol/L Normal 21.0-32.0 [facility] Comment on above: Performed By: #### C BC #### [facility] [address] [place] [address] Dr. Kathy Will Creatinine [Mass/Vol] 0.82 mg/dL Normal 0.70-1.30 [facility] Comment on above: Performed By: #### C BC #### [facility] [address] [place] [address] Dr. Kathy Will EGFR-AF MACEDONIAN >60 Normal >=60 [facility] Comment on above: Performed By: #### C BC #### [facility] [address] [place] [address] Dr. Kathy Will EGFR-NON AF MACEDONIAN >60 Normal >=60 [facility] Comment on above: Performed By: #### C BC #### [facility] [address] [place] [address] Dr. Kathy Will Glucose [Mass/Vol] 175 mg/dL Critically high 74-106 [facility] Comment on above: Performed By: #### C BC #### [facility] [address] [place] [address] Dr. Kathy Will Potassium [Moles/Vol] 4.2 mmol/L Normal 3.5-5.1 [facility] Comment on above: Performed By: #### C BC #### [facility] [address] [place] [address] Dr. Kathy Will Sodium [Moles/Vol] 139 mmol/L Normal 136-145 [facility] Comment on above: Performed By: #### C BC #### [facility] [address] [place] [address] Dr. Kathy Wlil Urea nitrogen [Mass/Vol] 15.0 mg/dL Normal 7.0-18.0 [facility] Comment on above: Performed By: #### C BC #### [facility] [address] [place] [address] Dr. Kathy Will Urea nitrogen/Creatinine [Mass ratio] 18.3 mg/mg Normal [facility] Comment on above: Performed By: #### C BC #### [facility] [address] [place] [address] Dr. Kathy Will SGPTon 01-05-2022 ALT [Catalytic activity/Vol] 21 U/L Normal 16-63 [facility] Comment on above: Performed By: #### C BC #### [facility] [address] [place] [address] Dr. Kathy Will VITAMIN B12on 01-05-2022 Cobalamin (Vitamin B12) [Mass/Vol] 360.0 pg/mL Normal 193.0-986.0 [facility] Comment on above: Performed By: #### C BC #### [facility] [address] [place] [address] Dr. Kathy Will GLYCOHEMOGLOBIN A1Con 2021 ADA RECOMMENDATION ADA THERAPEUTIC TARGET 6.0 - 7.0 ACTION SUGGESTED > 7.0 Normal [facility] Comment on above: Performed By: #### A 1C #### [facility] [address] [place] [address] Dr. Kathy Will Glucose [Mass/Vol] 197 mg/dL Normal [facility] Comment on above: Performed By: #### A 1C #### [facility] [address] [place] [address] Dr. Kathy Will HbA1c (Bld) [Mass fraction] 8.5 % Critically high <=6.0 [facility] Comment on above: Performed By: #### A 1C #### [facility] [address] [place] [address] Dr. Kathy Will CBC AUTO DIFFon 06-29-2021 BASO # 0.0 103/ul Normal 0.0-0.1 [facility] Comment on above: Performed By: #### C BC #### [facility] [address] [address] [address] Kathy Will Basophils/100 WBC (Bld) 0.8 % Normal 0.2-2.0 [facility] Comment on above: Performed By: #### C BC #### [facility] [address] [place] [address] Dr. Kathy Will EO # 0.2 103/ul Normal 0.0-0.7 [facility] Comment on above: Performed By: #### C BC #### [facility] [address] [place] [address] Dr. Kathy Will Eosinophils/100 WBC (Bld) 2.8 % Normal 0.9-7.0 [facility] Comment on above: Performed By: #### C BC #### [facility] [address] [place] [address] Dr. Kathy Will Erythrocyte distribution width (RBC) [Ratio] 12.7 % Normal 11.0-15.0 [facility] Comment on above: Performed By: #### C BC #### [facility] [address] [place] [address] Dr. Kathy Will Hematocrit (Bld) [Volume fraction] 39.0 % Critically low 42.0-54.0 [facility] Comment on above: Performed By: #### C BC #### [facility] [address] [place] [address] Dr. Kathy Will Hemoglobin (Bld) [Mass/Vol] 12.9 g/dL Critically low 14.0-18.0 [facility] Comment on above: Performed By: #### C BC #### [facility] [address] [place] [address] Dr. Kathy Will IG # 0.01 10e3/ul Normal 0.00-0.03 [facility] Comment on above: Performed By: #### C BC #### [facility] [address] [place] [address] Dr. Kathy Will IG % 0.2 % Normal 0.0-0.5 [facility] Comment on above: Performed By: #### C BC #### [facility] [address] [place] [address] Dr. Kathy Will LYMPH # 1.9 103/ul Normal 1.2-3.8 [facility] Comment on above: Performed By: #### C BC #### [facility] [address] [place] [address] Dr. Kathy Will Lymphocytes/100 WBC (Bld) 36.2 % Normal 20.5-60.0 [facility] Comment on above: Performed By: #### C BC #### [facility] [address] [place] [address] Dr. Kathy Will MANUAL DIFF REQ NO Normal [facility] Comment on above: Performed By: #### C BC #### [facility] [address] [place] [address] Dr. Kathy Wlil MCH (RBC) [Entitic mass] 32.2 pg Normal 25.9-34.0 [facility] Comment on above: Performed By: #### C BC #### [facility] [address] [place] [address] Dr. Kathy Will MCHC (RBC) [Mass/Vol] 33.1 g/dL Normal 29.9-35.2 [facility] Comment on above: Performed By: #### C BC #### [facility] [address] [place] [address] Dr. Kathy Will MCV (RBC) [Entitic vol] 97.3 fL Critically high 80.0-94.0 [facility] Comment on above: Performed By: #### C BC #### [facility] [address] [place] [address] Dr. Kathy Will MONO # 0.5 103/ul Normal 0.3-0.8 [facility] Comment on above: Performed By: #### C BC #### [facility] [address] [place] [address] Dr. Kathy Will Monocytes/100 WBC (Bld) 9.4 % Normal 1.7-12.0 [facility] Comment on above: Performed By: #### C BC #### [facility] [address] [place] [address] Dr. Kathy Will NEUT # 2.7 103/ul Normal 1.4-6.5 [facility] Comment on above: Performed By: #### C BC #### [facility] [address] [place] [address] Dr. Kathy Will Neutrophils/100 WBC (Bld) 50.6 % Normal 43.0-75.0 [facility] Comment on above: Performed By: #### C BC #### [facility] [address] [address] [address] Kathy Will Platelet mean volume (Bld) [Entitic vol] 10.2 fL Normal 9.5-13.5 [facility] Comment on above: Performed By: #### C BC #### [facility] [address] [place] [address] Dr. Kathy Will PLT 152 103/ul Normal 150-450 [facility] Comment on above: Performed By: #### C BC #### [facility] [address] [place] [address] Dr. Kathy Will RBC 4.01 106/ul Critically low 4.70-6.10 [facility] Comment on above: Performed By: #### C BC #### [facility] [address] [place] [address] Dr. Kathy Will WBC 5.3 103/ul Normal 4.0-11.0 [facility] Comment on above: Performed By: #### C BC #### [facility] [address] [place] [address] Dr. Kathy Will FERRITINon 06-29-2021 Ferritin [Mass/Vol] 29.0 ng/mL [facility] 17.9-464.0 [facility] Comment on above: Performed By: #### F ETIBC, FERR, VITB12 #### [facility] [address] [place] [address] Dr. Kathy Will IRON AND TIBCon 06-29-2021 % SATURATION 22.9 % Normal [facility] Comment on above: Performed By: #### F ETIBC, FERR, VITB12 #### [facility] [address] [address] [address] Kathy Will Iron [Mass/Vol] 83.0 ug/dL Normal 49.0-181.0 [facility] Comment on above: Performed By: #### F ETIBC, FERR, VITB12 #### [facility] [address] [place], [place] [address] Dr. Kathy Will TIBC DIRECT 362.0 ug/dL Normal 261.0-497.0 [facility] Comment on above: Performed By: #### F ETIBC, FERR, VITB12 #### [facility] [address] [place], [place] [address] Dr. Kathy Will VITAMIN B12on 06-29-2021 Cobalamin (Vitamin B12) [Mass/Vol] 296.0 pg/mL Normal 239.0-931.0 [facility] Comment on above: Performed By: #### F ETIBC, FERR, VITB12 #### [facility] [address] [address] [address] Kathy Will Vital Signs Date Time Vital Sign Value Performing Clinician Facility 04-10-2023 09:30-0400 Body height 182.88 cm Luis Enrique [employer] Other [facility] 04-10-2023 09:30-0400 Body mass index (BMI) [Ratio] 26.25 kg/m2 Luis Enrique [employer] Other [facility] Other 04-10-2023 09:30-0400 Body weight 87.82 kg Luis Enrique [employer] Other [facility] Other 04-10-2023 09:30-0400 Diastolic blood pressure 85 mm[Hg] Luis Enrique [employer] Other [facility] Other 04-10-2023 09:30-0400 Respiratory rate 12 /min Luis Enrique [employer] Other [facility] Other 04-10-2023 09:30-0400 Systolic blood pressure 135 mm[Hg] Luis Enrique [employer] Other [facility] Other 01-06-2023 10:30-0400 Body height 182.88 cm Luis Enrique [facility] Other [facility] Other 01-06-2023 10:30-0400 Body mass index (BMI) [Ratio] 25.96 kg/m2 Luis Enrique [facility] Other [facility] Other 01-06-2023 10:30-0400 Body weight 86.82 kg Luis Enrique [facility] Other [facility] Other 01-06-2023 10:30-0400 Diastolic blood pressure 77 mm[Hg] Luis Enrique [facility] Other [facility] Other 01-06-2023 10:30-0400 Respiratory rate 12 /min Luis Enrique [facility] Other [facility] Other 01-06-2023 10:30-0400 Systolic blood pressure 136 mm[Hg] Luis Enrique [facility] Other [facility] Other 12-28-2022 11:45-0400 Body height 182.88 cm Luis Enrique [facility] Other [facility] Other 12-28-2022 11:45-0400 Body mass index (BMI) [Ratio] 26.31 kg/m2 Luis Enrique [facility] Other [facility] Other 12-28-2022 11:45-0400 Body weight 88 kg Luis Enrique [facility] Other [facility] Other 12-28-2022 11:45-0400 Diastolic blood pressure 58 mm[Hg] Luis Enrique [facility] Other [facility] Other 12-28-2022 11:45-0400 Respiratory rate 12 /min Luis Enrique [facility] Other [facility] Other 12-28-2022 11:45-0400 Systolic blood pressure 94 mm[Hg] Luis Enrique Zhao Other [facility] Other Encounters Encounter Date Encounter Type Care Provider Facility Start: 06-20-2023 End: 06-20-2023 ambulatory Luis Enrique [facility] Other [facility] Other Start: 06-20-2023 Telephone encounter Luis Enrique [facility] Start: 05-10-2023 End: 05-10-2023 ambulatory Luis Enrique [facility] Other [facility] Other Start: 05-10-2023 Telephone encounter Luis Enrique [facility] Start: 04-27-2023 End: 04-27-2023 ambulatory Luis Enrique [facility] Other [facility] Other Start: 04-27-2023 Telephone encounter Luis Enrique [facility] Start: 04-11-2023 End: 04-11-2023 ambulatory Luis Enrique [facility] Other [facility] Other Start: 04-11-2023 Telephone encounter Luis Enrique [facility] Start: 04-10-2023 End: 04-10-2023 ambulatory Luis Enrique [facility] Other [facility] Other Start: 04-10-2023 Office outpatient vi sit 25 minutes Luis Enrique [facility] Start: 03-23-2023 End: 03-23-2023 ambulatory Luis Enrique [facility] Other [facility] Other Start: 03-23-2023 Telephone encounter Luis Enrique [facility] Start: 01-09-2023 End: 01-09-2023 ambulatory Luis Enrique [facility] Other [facility] Other Start: 01-09-2023 Telephone encounter Luis Enrique [facility] Start: 01-06-2023 End: 01-06-2023 ambulatory Luis Enrique Zhao Other [facility] Other Start: 01-06-2023 Patient encounter procedure Luis Enrique Zhao [facility] Start: 12-28-2022 End: 12-28-2022 ambulatory Luis Enrique Zhao Other [facility] Other Start: 12-28-2022 Office outpatient vi sit 25 minutes Luis Enrique Zhao [facility] Start: 12-16-2022 End: 12-16-2022 ambulatory Luis Enrique Zhao Other [facility] Other Start: 12-16-2022 Telephone encounter Luis Enrique Zhao [facility] Start: 12-15-2022 End: 12-15-2022 ambulatory Luis Enrique Zhao Other [facility] Other Start: 12-15-2022 Telephone encounter Luis Enrique Zhao [facility] Start: 12-02-2022 End: 12-02-2022 ambulatory Luis Enrique Zhao Other [facility] Other Start: 12-02-2022 Telephone encounter Luis Enrique [facility] Start: 03-31-2022 End: 04-01-[address] LUIS ENRIQUE ZHAO Facility:[facility] Start: 01-05-2022 End: 01-06-[address] LUIS ENRIQUE ZHAO Facility:[facility] Start: 01-04-2022 Adult health examination Luis Enrique Zhao Other [facility] Other Start: 01-04-2022 Encounter for genera l adult medical examination without abnormal findings Luis Enrique Zhao Other [facility] Other Start: 09-27-2021 End: 09-28-[address] LUIS ENRIQUE ZHAO Facility:[facility] Start: 06-29-2021 End: 06-30-[address] LUIS ENRIQUE ZHAO Facility:[facility] Procedures Date Procedure Procedure Detail Performing Clinician Start: 05-21-2015 Screening for malign ant neoplasm of colon Luis Enrique Zhao Other Depression screening Genaro Zhao Other Screening for malign ant neoplasm of breast Luis Enrique Zhao Other Screening for malign ant neoplasm of prostate Luis Enrique [facility] Other Immunizations Immunization Date Immunization Notes Care Provider Alfredito nasrin 04-10-2023 influenza, high dose seasonal, preservative-free Luis Enrique Zhao Other [facility] Other 03-25-2022 influenza, high dose seasonal, preservative-free Luis Enrique Zhao Other [facility] Other 04-27-2021 COVID-19 Vaccine Pfi zer - Documentation Purposes Only Luis Enrique Zhao Other [facility] Other 03-25-2021 influenza virus vaccine, split virus (incl. purified surface antigen) Luis Enrique Zhao Other [facility] Other 02-27-2020 influenza virus vaccine, split virus (incl. purified surface antigen) Luis Enrique Zhao Other [facility] Other 03-28-2019 influenza virus vaccine, split virus (incl. purified surface antigen) Luis Enrique Zhao Other [facility] Other 02-21-2018 influenza virus vaccine, split virus (incl. purified surface antigen) Luis Enrique Zhao Other [facility] Other 03-14-2017 influenza virus vaccine, split virus (incl. purified surface antigen) Luis Enrique Zhao Other [facility] Other 03-18-2016 influenza virus vaccine, split virus (incl. purified surface antigen) Luis Enrique Zhao Other [facility] Other 05-21-2015 pneumococcal conjuga te vaccine, 13 valent Luis Enrique Zhao Other [facility] Other 03-13-2015 influenza virus vaccine, split virus (incl. purified surface antigen) Luis Enrique [facility] Other [facility] Other 09-23-2014 diphtheria, tetanus toxoids and acellular pertussis vaccine, unspecified formulation Luis Enrique Zhao Other [facility] Other 03-17-2014 tetanus and diphther ia toxoids, adsorbed, preservative free, for adult use (5 Lf of tetanus toxoid and 2 Lf of diphtheria toxoid) Luis Enrique [facility] Other [facility] Other 03-18-2013 tetanus and diphther ia toxoids, adsorbed, preservative free, for adult use (5 Lf of tetanus toxoid and 2 Lf of diphtheria toxoid) Luis Enrique [facility] Other [facility] Other 04-16-2008 pneumococcal polysaccharide vaccine, 23 valent Luis Enrique Zhao Other [facility] Other Payers Date Payer Category Payer Medicare [id number] 1945 Unknown [id number] [id number] 1945 Unknown [id number] [id number] 1945 Unknown [id number] [id number] [id number] 1945 Unknown [id number] [id number] Social History Date Type Detail Facility Sex Assigned At [facility] Other Medical Equipment Procedure Code Equipment Code Equipment Origin al Text Equipment Identifier Dates Pen [place] [id number] X 5 MM Start: 04-10-2023 Evaluation note 06-20-2023 Note Date & Type Note Facility 06-20-2023 Evaluation note Encounter Date Diagnosis Assessment Notes Jun, Anemia due to other cause, not classified (ICD-10 - D64.89) [facility] Other Evaluation note 04-27-2023 Note Date & Type Note Facility 04-27-2023 Evaluation note Encounter Date Diagnosis Assessment Notes Apr, Type 2 diabetes mellitus with diabetic polyneuropath y, without long-term current use of insulin (ICD-10 - E11.42) [facility] Other Evaluation note 04-10-2023 Note Date & Type Note Facility 04-10-2023 Evaluation note Encounter Date Diagnosis Assessment Notes Mar, Type 2 diabetes mellitus with hyperglycemia, without long-term current use of insulin (ICD-10 - E11.65) This patient is following a comprehensive diabetic treatment plan. They are checking their feet daily for calluses and nonhealing ulcers. They are being seen for yearly dilated eye examinations. Goals: SBP less than 130, LDL less than 100, FBS less than 140, A1C less than 7%. They are checking their BS daily, will which are reviewed at the office visit. Continue regular routine monitoring of A1C,] Microalbumin, Dilated eye exam and Foot exam Mar, Type 2 diabetes mellitus with diabetic polyneuropathy, without long-term current use of insulin (ICD-10 - E11.42) Inspect feet daily for cuts and calluses.Recommen d diabetic shoes and inserts to prevent callus formation.Fall precautions. Mar, Primary hypertension (ICD-10 - I10) This patient is instructed to consume a healthy, low-fat, low-salt diet. They are also encouraged to continue exercise to achieve/maintain a normal BMI. Mar, Hyperlipidemia, mixed (ICD-10 - E78.2) Instructed on diet and exercise with continued statin therapy.Discussed the beneficial effects of lowering cholesterol in reducing the risk for cerebrovascular and cardiovascular disease. Mar, Gastroesophageal reflux disease with esophagitis without hemorrhage (ICD-10 - K21.00) Diet instructions: Smaller portions, avoid eating and laying flat, avoid eating or drinking prior to bedtime. Weight loss. Mar, ANDRE (generalized anxiety disorder) (ICD-10 - F41.1) Healthy diet and exercise. No change in medical therapy Keep active Mar, Atul-colored stools (ICD-10 - R19.5) No change in diet or medications No s/s infectious etiology Check CBC and CMP Mar, Nicotine dependence, cigarettes, in remission (ICD-10 - F17.211) Continue abstinence. Not a candidate for LDCT Mar, Anemia due to other cause, not classified (ICD-10 - D64.89) Recheck CBC, Fe studies 9 years since last scope [facility] Other Evaluation note 01-06-2023 Note Date & Type Note Facility 01-06-2023 Evaluation note Encounter Date Diagnosis Assessment Notes Dec, Medicare annual wellness visit, subsequent (ICD-10 - Z00.00) Personalized health advice was given to the beneficiary including a written plan for screenings discussed and provided. Advanced care planning reviewed and/or information given as requested. Additional counseling was provided here today in regards to, [ ]. The above visit was performed by [ ], under direct supervision of [ ]. Document reviewed and amended by provider signed below. Dec, Primary hypertension (ICD-10 - I10) This patient is instructed to consume a healthy, low-fat, low-salt diet. They are also encouraged to continue exercise to achieve/maintain a normal BMI. Dec, Type 2 diabetes mellitus with hyperglycemia, without long-term current use of insulin (ICD-10 - E11.65) This patient is following a comprehensive diabetic treatment plan. They are checking their feet daily for calluses and nonhealing ulcers. They are being seen for yearly dilated eye examinations. Goals: SBP less than 130, LDL less than 100, FBS less than 140, AC and A1C less than 7%. They are checking their BS daily, will which are reviewed at the office visit. Continue regular routine monitoring of A1C,] Microalbumin, Dilated eye exam and Foot exam Dec, Type 2 diabetes mellitus with diabetic polyneuropathy, without long-term current use of insulin (ICD-10 - E11.42) Inspect feet daily for cuts and calluses.Recommen d diabetic shoes and inserts to prevent callus formation.Fall precautions. Dec, Hyperlipidemia, mixed (ICD-10 - E78.2) Instructed on diet and exercise with continued statin therapy.Discussed the beneficial effects of lowering cholesterol in reducing the risk for cerebrovascular and cardiovascular disease. Dec, Gastroesophageal reflux disease with esophagitis without hemorrhage (ICD-10 - K21.00) Diet instructions: Smaller portions, avoid eating and laying flat, avoid eating or drinking prior to bedtime. Weight loss. Dec, ANDRE (generalized anxiety disorder) (ICD-10 - F41.1) Dec, Nicotine dependence, cigarettes, in remission (ICD-10 - F17.211) [facility] Other Evaluation note 12-28-2022 Note Date & Type Note Facility 12-28-2022 Evaluation note Encounter Date Diagnosis Assessment Notes Dec, Dizzy spells (ICD-10 - R42) Hydrate, minimum 40oz water daily Avoid excessive 0utside work Hold Lisinopril and Alfuzosin. Monitor SBP at home and update office Dec, Primary hypertension (ICD-10 - I10) Holding Lisinopril Push fluids. Monitor closely Recheck labs in 48 hours. Dec, Type 2 diabetes mellitus with hyperglycemia, without long-term current use of insulin (ICD-10 - E11.65) This patient is following a comprehensive diabetic treatment plan. They are checking their feet daily for calluses and nonhealing ulcers. They are being seen for yearly dilated eye examinations. Goals: SBP less than 130, LDL less than 100, FBS less than 140, AC and A1C less than 7%. They are checking their BS daily, will which are reviewed at the office visit. Continue regular routine monitoring of A1C,] Microalbumin, Dilated eye exam and Foot exam Home BS mid 100s Dec, Benign prostatic hyperplasia with lower urinary tract symptoms (ICD-10 - N40.1) Symptoms tolerble. Holding Alfuzosin due to BP lowering side effect Dec, Anemia due to other cause, not classified (ICD-10 - D64.89) Mild anemia at recent ER visit No change in appetite or bowel habits No melena or hematochezia Recheck CBC [facility] Other Evaluation note 12-15-2022 Note Date & Type Note Facility 12-15-2022 Evaluation note Encounter Date Diagnosis Assessment Notes Dec, Bruit of right carotid artery (ICD-10 - R09.89) Carotid US: < 50% - 12/2022 [facility] Other Evaluation note Note Date & Type Note Facility Evaluation note No Information [facility] [employer] Other History general Narrative - Reported Note Date & Type Note Facility History general Narrative - Reported Type Medical History Anemia in other medical records analyst jacquelin diseases classified elsewhere Medical History Benign prostatic hyp erplasia with lower urinary tract symptoms Medical History Gastroesophageal ref lux disease with esophagitis without hemorrhage Medical History Essential hypertension Medical History Hyperlipidemia, mixed Medical History Type 2 diabetes joy itus with hyperglycemia, without long-term current use of insulin Medical History Iron deficiency anemia Medical History Anemia due to other cause, not classified Medical History Candidal balanitis Medical History Tobacco user Medical History Nicotine dependence, cigarettes, in remission Medical History Xerosis cutis Medical History Lumbar spondylosis Medical History Type 2 diabetes joy itus with diabetic polyneuropathy, without long-term current use of insulin Medical History High risk medication use Medical History Dysuria Medical History Acute bronchitis due to other specified organisms Surgical History VASECTOMY COLONOSCOPY Surgical History EGD 08/2013 Hospitalization History SEE SURGICAL HX [facility] Other Summary Purpose Family History No Family History Records Found Advance Directives No Advanced Directives Records Found Additional Source Comments (unrecognized sect ion and content) No Status Records Found INFORMATION SOURCE (unrecogn ized section and content) DATE CREATED AUTHOR 04/06/2022 [employer] REASON FOR VISIT (unrecogniz ed section and content) DiarrheaNo InformationTestin g resultsBP TROUBLESWellnessHolter xxyorxyT0L results3 month Follow up/FLU [facility] resultsFYI TrulicityReminderrepeat labs FOR RECORDS PERTAINING TO PATIENTS WHO ARE OR HAVE BEEN ENROLLED IN A CHEMICAL DEPENDENCY/SUBSTANCEABUSE PROGRAM, SOME INFORMATION MAY BE OMITTED. This clinical summary was aggregated from multiple sources. Caution should be exercised in using it in the provision of clinical care. This summary normalizes information from multiple sources, and as a consequence, information in this document may materially change the coding, format and clinical context of patient data. In addition, data may be omitted in some cases. CLINICAL DECISIONS SHOULD BE BASED ON THE PRIMARY CLINICAL RECORDS. [employer] provides no warranty or guarantee of the accuracy or completeness of information in this document.
[2023-06-27 09:12] LABS: Basophils Absolute Auto 0.1 10^3/uL (0.0-0.1); Eosinophils Absolute Auto 0.1 10^3/uL (0.0-0.7); Eosinophils Percent Auto 2.8 % (0.9-7.0); Hematocrit 38.2 % (42.0-54.0); Hemoglobin 12.4 g/dL (14.0-18.0); Immature Granulocytes Abs Auto 0.01 10^3/uL (0.00-0.03); Immature Granulocytes Pct Auto 0.2 % (0.0-0.5); Lymphocytes Percent Auto 39.7 % (20.5-60.0); Mean Corpuscular HGB Conc 32.5 g/dL (29.9-35.2); Mean Corpuscular Hemoglobin 31.2 pg (25.9-34.0); Mean Corpuscular Volume 96.2 fL (80.0-94.0); Mean Platelet Volume 10.2 fL (9.5-13.5); Monocytes Absolute Auto 0.5 10^3/uL (0.3-0.8); Neutrophils Absolute Auto 2.3 10^3/uL (1.4-6.5); Neutrophils Percent Auto 46.3 % (43.0-75.0); Platelet Count 175 10^3/uL (150-450); Red Blood Count 3.97 10^6/uL (4.70-6.10); Red Cell Distribution Width 13.8 % (11.0-15.0)
[2023-06-27 09:48] LABS: Percent Iron Saturation 14.6 %
== END 2023-06-27 08:38 | disposition home or self-care (01) ==
LOC: LAB 08:38
PROVIDERS: PCP Internal Medicine; Visit Provider Internal Medicine
DX: D64.89 Other specified anemias (principal); D50.9 Iron deficiency anemia, unspecified
CPT/HCPCS: 36415; 82607; 82728; 82746; 83540; 83550; 85025

== ENCOUNTER 2023-10-10 10:58 | Outpatient (OUT) | payer MEDICARE, SELFPAY ==
[2023-10-10 11:23] LABS: Estimated Average Glucose 146 mg/dL; Glycohemoglobin A1C 6.7 % (4.5-6.2)
[2023-10-10 12:19] LABS: Basophils Percent Auto 0.7 % (0.2-2.0); Eosinophils Absolute Auto 0.2 10^3/uL (0.0-0.7); Eosinophils Percent Auto 2.6 % (0.9-7.0); Hematocrit 39.6 % (42.0-54.0); Hemoglobin 13.2 g/dL (14.0-18.0); Immature Granulocytes Abs Auto 0.01 10^3/uL (0.00-0.03); Immature Granulocytes Pct Auto 0.2 % (0.0-0.5); Lymphocytes Absolute Auto 2.1 10^3/uL (1.2-3.8); Lymphocytes Percent Auto 35.9 % (20.5-60.0); Mean Corpuscular HGB Conc 33.3 g/dL (29.9-35.2); Mean Corpuscular Hemoglobin 31.8 pg (25.9-34.0); Mean Corpuscular Volume 95.4 fL (80.0-94.0); Mean Platelet Volume 10.8 fL (9.5-13.5); Monocytes Absolute Auto 0.6 10^3/uL (0.3-0.8); Monocytes Percent Auto 10.4 % (1.7-12.0); Neutrophils Absolute Auto 2.9 10^3/uL (1.4-6.5); Neutrophils Percent Auto 50.2 % (43.0-75.0); Platelet Count 152 10^3/uL (150-450); Red Blood Count 4.15 10^6/uL (4.70-6.10); Red Cell Distribution Width 13.3 % (11.0-15.0); White Blood Count 5.8 10^3/uL (4.0-11.0)
== END 2023-10-10 10:59 | disposition home or self-care (01) ==
LOC: LAB 10:59
PROVIDERS: PCP Internal Medicine; Visit Provider Internal Medicine
DX: E11.65 Type 2 diabetes mellitus with hyperglycemia (principal); D64.9 Anemia, unspecified
CPT/HCPCS: 36415; 82728; 83036; 85025

== ENCOUNTER 2024-01-10 07:45 | Outpatient (OUT) | payer MEDICARE, SELFPAY ==
--- OUTSIDE RECORDS SUMMARY | 2024-01-10 07:49 | XMS_ITS | CCD ---
Author Organization [facility] Providers Care Allied Health Instructor Name Role Phone PAVEL, DR SALINAS Attending [...] Allergy Type Date of Onset Reaction(s) Facility (14 sources) Indomethacin Drug Allergy Unknown [place] [employer] Other Medications Current Medications Medication Drug Class(es) Dates Sig (Normalized) Sig (Original) 24 hr alfuzosin hydrochloride 10 mg extended release oral tablet (3 sources) alpha-Adrenergic [place] Alfuzosin HCl ER 10 MG TAKE 1 TABLET EVERY DAY for 90 Active baclofen 10 mg oral tablet (13 sources) gamma-Aminobutyr ic Acid-ergic Agonist take 1 tablet by mouth every twelve hours Baclofen 10 MG 1 tablet as needed Orally Twice a day Active escitalopram 5 mg oral tablet (16 sources) Serotonin Reuptake Inhibitor Start: 10-09-2023 take 5 mg by mouth once daily Escitalopram Oxalate Active 5 MG PO Daily October 09, 2023 12:00am Escitalopram Oxa late 5 MG TAKE 1 TABLET AT BEDTIME Active glimepiride 4 mg oral tablet (20 sources) Sulfonylurea Start: 01-09-2024 End: 01-09-2024 take 4 mg by mouth once daily Glimepiride Active 4 MG PO Daily 90 90 January 09, 2024 10:31am Start: 01-09-2024 take 4 mg by mouth i n the morning Glimepiride Active 2 MG PO Every morning 90 90 January 09, 2024 12:00am administer 30 minutes prior to bkfst w/ the 4mg dose Start: 11-16-2023 End: 01-09-2024 take 6 mg by mouth once daily Glimepiride Discontinued 6 MG PO Daily November 16, 2023 12:45pm January 09, 2024 10:31am Start: 10-09-2023 End: 11-16-2023 take 4 mg by mouth once daily Glimepiride Discontinued 4 MG PO Daily October 09, 2023 12:00am November 16, 2023 12:45pm Glimepiride 4 MG TAKE 1 TABLET EVERY DAY 30 MINUTES BEFORE BREAKFAST Active lisinopril 5 mg oral tablet (3 sources) Angiotensin Converting Enzyme Inhibitor take 1 tablet by mouth every twenty-four hours Lisinopril 5 MG 1 tablet Orally Once a day Active omeprazole 20 mg delayed release oral capsule (16 sources) Proton Pump Inhibitor Start: take 20 mg by mouth once daily Omeprazole Active 20 MG PO Daily October 09, 2023 12:00am Omeprazole 20 MG TAKE 1 CAPSULE EVERY DAY ON AN EMPTY STOMACH FOLLOWED IN 30 MINUTES BY BREAKFAST Active pioglitazone 30 mg oral tablet (17 sources) Peroxisome Proliferator Receptor alpha Agonist, Peroxisome Proliferator Receptor gamma Agonist, Thiazolidinedione Start: 10-10-2023 End: 10-10-2023 take 30 mg by mouth once daily Pioglitazone Active 30 MG PO Daily 90 90 October 10, 2023 10:24am take 1 tablet by mouth once binh y Pioglitazone HCl 30 MG TAKE 1 TABLET BY MOUTH EVERY DAY Active simvastatin 10 mg oral tablet (16 sources) HMG-CoA Reductase Inhibitor Start: 08-02-2023 take 10 mg by mouth once daily in the evening Simvastatin Active 10 MG PO Every evening 90 90 August 02, 2023 1:00am take 1 tablet by zeinab th every twenty-four hours Simvastatin 10 MG 1 tablet in the evenin g Orally Once a day Active triamcinolone acetonide 1 mg/ml topical cream (16 sources) Corticosteroid Start: 10-09-2023 Triamcinolone Acetonide Active 1 APPLIC TOPICAL Twice a Week October 09, 2023 12:00am Triamcinolone Ac etonide 0.1 % 1 application Externally Two times a Week Active Triamcinolone Ac etonide 0.1 % 1 application Externally Two times a Week Active True Metrix Blood Glucose Te st - (14 sources) True Metrix Bloo d Glucose Test - USE TO TEST BLOOD SUGAR ONCE DAILY for 50 Active True Metrix Bloo d Glucose Test - as directed In Vitro Active Completed/Discontinued Medications Medication Drug Class(es) Dates Sig (Normalized) Sig (Original) 0.5 ml dulaglutide 1.5 mg/ml auto-injector (17 sources) GLP-1 Receptor Agonist Start: 08-25-2023 End: 10-10-2023 Dulaglutide (Trulicity) 0.75 mg/0.5 mL pen injector Discontinued 1.5 MG SUBCUT every week 4 August 25, 2023 1:32pm October 10, 2023 10:02am Start: 07-28-2023 End: 08-25-2023 Dulaglutide (Trulicity) 0.75 mg/0.5 mL pen injector Discontinued 0.75 MG SUBCUT every week 2 August 22, 2023 1:09pm August 25, 2023 1:32pm Start: 07-27-2023 End: 07-28-2023 Dulaglutide (Trulicity) 1.5 mg/0.5 mL pen injector Discontinued 1.5 MG SUBCUT every week 2 July 27, 2023 2:34pm July 28, 2023 4:49pm Start: 04-10-2023 inject 1.5 mg by sub cutaneous injection every week Trulicity 1.5 MG/0.5ML 1.5MG Subcutaneous weekly for 28 days Mar, Active Start: 04-10-2023 Trulicity 0.75 MG/0.5ML as directed Subcutaneous weekly for 28 days Mar, Active Problems Active Problems Problem Classification Problem Date Documented Da te Episodic/Chronic Acute bronchitis (14 sources) Acute bronchitis; Translations: [Acute bronchitis due to other specified organisms] Episodic Anxiety disorders (13 sources) Generalized anxiety disorder; Translations: [Generalized anxiety disorder] Chronic Conditions associated with dizziness or vertigo (1 source) Dizziness and giddiness Episodic Deficiency and other anemia (13 sources) Chronic anemia; Translations: [Anemia in other chronic diseases classified elsewhere] Chronic Deficiency and other anemia (1 source) Anemia in other chronic diseases classified elsewhere; Translations: [Anemia in other chronic diseases classified elsewhere] Chronic Deficiency and other anemia (7 sources) Iron deficiency anemia, unspecified; Translations: [IRON DEFICIENCY ANEMIA UNSPECIFIED] Onset: 03-31-2022 Episodic Deficiency and other anemia (5 sources) Other specified anemias; Translations: [OTHER SPECIFIED ANEMIAS] Onset: 04-05-2022 Episodic Deficiency and other anemia (6 sources) Anemia, unspecified; Translations: [Anemia, unspecified] Onset: 06-29-2021 Episodic Deficiency and other anemia (18 sources) Anemia; Translations: [Other specified anemias] 10-08-2023 Episodic Deficiency and other anemia (15 sources) Iron deficiency anemia; Translations: [Iron deficiency anemia, unspecified] Episodic Deficiency and other anemia (1 source) Other iron deficiency anemias Episodic Diabetes mellitus with complications (20 sources) Type 2 diabetes mellitus with hyperglycemia; Translations: [Hyperglycemia due to type 2 diabetes mellitus] Onset: 09-27-2021 Chronic Disorders of lipid metabolism (20 sources) Mixed hyperlipidemia; Translations: [Mixed hyperlipidemia] Onset: 06-12-1961 Chronic Esophageal disorders (15 sources) Moulton's esophagus; 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] 10-08-2023 Chronic Essential hypertension (20 sources) Essential (primary) hypertension; Translations: [Essential hypertension] Onset: 01-11-2022 Chronic Genitourinary symptoms and ill-defined conditions (14 sources) Dysuria; Translations: [Dysuria] Episodic Hyperplasia of prostate (20 sources) Lower urinary tract symptoms due to benign prostatic hypertrophy; Translations: [Benign prostatic hyperplasia with lower urinary tract symptoms] Chronic Immunizations and screening for infectious disease (3 sources) Vaccination given; Translations: [Encounter for immunization] Episodic Mood disorders (2 sources) Depression; Translations: [Depression, unspecified] Onset: 05-20-2014 Chronic Mood disorders (1 source) Mood disorders; Translations: [Depression, unspecified] Onset: 05-20-2014 Mycoses (14 sources) Candidal balanitis; Translations: [Candidal balanitis] Episodic Osteoarthritis (3 sources) Idiopathic osteoarthritis; 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, right knee] Onset: 05-15-2018 Chronic Other aftercare (13 sources) H/O: high risk medication; Translations: [Other ad terminal makeup operator (current) drug therapy] Episodic Other aftercare (3 sources) Long-term current use of drug therapy; Translations: [Other ad terminal makeup operator (current) drug therapy] Episodic Other aftercare (1 source) Other jail (current) drug therapy; Translations: [High risk medication [...] [PSA]] Onset: 11-15-2016 Episodic Other skin disorders (13 sources) Asteatosis cutis; Translations: [Xerosis cutis] Episodic Other skin disorders (1 source) Xerosis cutis; Translations: [Xerosis cutis] Episodic Other upper respiratory disease (6 sources) Allergic rhinitis; Translations: [Other allergic rhinitis] Onset: 01-25-2019 Chronic Residual codes; unclassified (16 sources) Tobacco user; Translations: [Tobacco use] Episodic Residual codes; unclassified (1 source) Tobacco use; Translations: [Tobacco user] Episodic Spondylosis; intervertebral disc disorders; other back problems (17 sources) Lumbar spondylosis; Translations: [Spondylosis without myelopathy or radiculopathy, lumbar region] Chronic Substance-related disorders (17 sources) Tobacco user; Translations: [Nicotine dependence, cigarettes, in remission] Chronic Past or Other Problems Problem Classification Problem Date Documented Da te Episodic/Chronic Esophageal disorders (12 sources) Esophageal disorders; Translations: [Gastroesophageal reflux disease [...] Results Test Name Value Interpretation Reference Range Facility Glucose mean value [Mass/vol ume] in Blood Estimated from glycated hemoglobinon 11-15-2023 Average glucose Estimated from glycated hemoglobin (Bld) [Mass/Vol] 169 mg/dL [facility] - Hematology and Cell countson 11-15-2023 HbA1c (Bld) [Mass fraction] 7.5 % High 4.5-6.2 [facility] Comment on above: ADA RECOMMENDED LIMI T 4.0 - 6.0ADA THERAPEUTIC TARGET < 7.0ACTION SUGGESTED> 7.0 METHYLMALONIC ACID (MMA)on Methylmalonic Acid, Serum 151 nmol/L Normal 0-378 [facility] Comment on above: Performed By: #### C BC #### [facility] [address] [place] [address] Dr. Kathy Will CBC AUTO DIFFon 03-31-2022 BASO # 0.0 103/ul Normal 0.0-0.1 [facility] Comment on above: Performed By: #### C BC #### [facility] [address] [place] [address] Dr. Kathy Will Basophils/100 WBC (Bld) 0.8 % Normal 0.2-2.0 [facility] Comment on above: Performed By: #### C BC #### [facility] [address] [place] [address] Dr. Kathy Will EO # 0.2 103/ul Normal 0.0-0.7 [facility] Comment on above: Performed By: #### C BC #### [facility] [address] [place] [address] Dr. Kathy Will Eosinophils/100 WBC (Bld) 3.3 % Normal 0.9-7.0 [facility] Comment on above: Performed By: #### C BC #### [facility] [address] [place] [address] Dr. Kathy Will Erythrocyte distribution width (RBC) [Ratio] 13.4 % Normal 11.0-15.0 [facility] Comment on above: Performed By: #### C BC #### [facility] [address] [place] [address] Dr. Kathy Will Hematocrit (Bld) [Volume fraction] 38.4 % Critically low 42.0-54.0 [facility] Comment on above: Performed By: #### C BC #### [facility] [address] [place] [address] Dr. Kathy Will Hemoglobin (Bld) [Mass/Vol] 12.5 g/dL Critically low 14.0-18.0 [facility] Comment on above: Performed By: #### C BC #### [facility] [address] [place] [address] Dr. Kathy Will IG # 0.01 10e3/ul Normal 0.00-0.03 [facility] Comment on above: Performed By: #### C BC #### [facility] [address] [place] [address] Dr. Kathy Will IG % 0.2 % Normal 0.0-0.5 [facility] Comment on above: Performed By: #### C BC #### [facility] [address] [place] [address] Dr. Kathy Will LYMPH # 1.9 103/ul Normal 1.2-3.8 [facility] Comment on above: Performed By: #### C BC #### [facility] [address] [place] [address] Dr. Kathy Will Lymphocytes/100 WBC (Bld) 37.2 % Normal 20.5-60.0 [facility] Comment on above: Performed By: #### C BC #### [facility] [address] [place] [address] Dr. Kathy Will MANUAL DIFF REQ NO Normal [facility] Comment on above: Performed By: #### C BC #### [facility] [address] [place] [address] Dr. Kathy Will MCH (RBC) [Entitic mass] 31.8 pg Normal 25.9-34.0 [facility] Comment on above: Performed By: #### C BC #### [facility] [address] [place] [address] Dr. Kathy Will MCHC (RBC) [Mass/Vol] 32.6 g/dL Normal 29.9-35.2 [facility] Comment on above: Performed By: #### C BC #### [facility] [address] [place] [address] Dr. Kathy Will MCV (RBC) [Entitic vol] 97.7 fL Critically high 80.0-94.0 [facility] Comment on above: Performed By: #### C BC #### [facility] [address] [place] [address] Dr. Kathy Will MONO # 0.4 103/ul Normal 0.3-0.8 [facility] Comment on above: Performed By: #### C BC #### [facility] [address] [place] [address] Dr. Kathy Will Monocytes/100 WBC (Bld) 8.5 % Normal 1.7-12.0 [facility] Comment on above: Performed By: #### C BC #### [facility] [address] [place] [address] Dr. Kathy iWll NEUT # 2.5 103/ul Normal 1.4-6.5 [facility] Comment on above: Performed By: #### C BC #### [facility] [address] [place] [address] Dr. Kathy Will Neutrophils/100 WBC (Bld) 50.0 % Normal 43.0-75.0 [facility] Comment on above: Performed By: #### C BC #### [facility] [address] [place] [address] Dr. Kathy Will Platelet mean volume (Bld) [Entitic vol] 10.1 fL Normal 9.5-13.5 [facility] Comment on above: Performed By: #### C BC #### [facility] [address] [place] [address] Dr. Kathy Will PLT 147 103/ul Critically low 150-450 [facility] Comment on above: Performed By: #### C BC #### [facility] [address] [address] [address] Kathy Will RBC 3.93 106/ul Critically low 4.70-6.10 [facility] Comment on above: Performed By: #### C BC #### [facility] [address] [address] [address] Kathy Will WBC 5.1 103/ul Normal 4.0-11.0 [facility] Comment on above: Performed By: #### C BC #### [facility] [address] [address] [address] Kathy Will FERRITINon 03-31-2022 Ferritin [Mass/Vol] 47.0 ng/mL Normal 26.0-388.0 [facility] Comment on above: Performed By: #### C BC #### [facility] [address] [address] [address] Kathy Will IRON AND TIBCon 03-31-2022 % SATURATION 39.5 % Normal [facility] Comment on above: Performed By: #### C BC #### [facility] [address] [address] [address] Kathy Will Iron [Mass/Vol] 139.0 ug/dL Normal 65.0-175.0 [facility] Comment on above: Performed By: #### C BC #### [facility] [address] [address] [address] Kathy Will TIBC DIRECT 352.0 ug/dL Normal 250.0-450.0 [facility] Comment on above: Performed By: #### C BC #### [facility] [address] [address] [address] Kathy Will RETICULOCYTEon 03-31-2022 RETIC 2.05 % Normal 0.60-3.10 [facility] Comment on above: Performed By: #### R ETIC, CBC #### [facility] [address] [address] [address] Kathy Will VITAMIN B12on 10-20-2022 Cobalamin (Vitamin B12) [Mass/Vol] 391.0 pg/mL Normal 193.0-986.0 [facility] Comment on above: Performed By: #### A 1C #### [facility] [address] [place] [address] Dr. Kathy Will METHYLMALONIC ACID (MMA)on 0 01-08-2022 Methylmalonic Acid, Serum 142 nmol/L Normal 0-378 [facility] Comment on above: Performed By: #### M MA2 #### [facility] [address] [place] [address] Dr. Kathy Will CBC AUTO DIFFon 01-05-2022 BASO # 0.1 103/ul Normal 0.0-0.1 [facility] Comment on above: Performed By: #### C BC #### [facility] [address] [place] [address] Dr. Kathy Will Basophils/100 WBC (Bld) 1.0 % Normal 0.2-2.0 [facility] Comment on above: Performed By: #### C BC #### [facility] [address] [place] [address] Dr. Kathy Will EO # 0.2 103/ul Normal 0.0-0.7 [facility] Comment on above: Performed By: #### C BC #### [facility] [address] [place] [address] Dr. Kathy Will Eosinophils/100 WBC (Bld) 3.1 % Normal 0.9-7.0 [facility] Comment on above: Performed By: #### C BC #### [facility] [address] [place] [address] Dr. Kathy Will Erythrocyte distribution width (RBC) [Ratio] 13.2 % Normal 11.0-15.0 [facility] Comment on above: Performed By: #### C BC #### [facility] [address] [place] [address] Dr. Kathy Will Hematocrit (Bld) [Volume fraction] 34.1 % Critically low 42.0-54.0 [facility] Comment on above: Performed By: #### C BC #### [facility] [address] [place] [address] Dr. Kathy Will Hemoglobin (Bld) [Mass/Vol] 11.5 g/dL Critically low 14.0-18.0 [facility] Comment on above: Performed By: #### C BC #### [facility] [address] [place] [address] Dr. Kathy Will IG # 0.01 10e3/ul Normal 0.00-0.03 [facility] Comment on above: Performed By: #### C BC #### [facility] [address] [place] [address] Dr. Kathy Will IG % 0.2 % Normal 0.0-0.5 [facility] Comment on above: Performed By: #### C BC #### [facility] [address] [place] [address] Dr. Kathy Will LYMPH # 2.0 103/ul Normal 1.2-3.8 [facility] Comment on above: Performed By: #### C BC #### [facility] [address] [place] [address] Dr. Kathy Will Lymphocytes/100 WBC (Bld) 38.6 % Normal 20.5-60.0 [facility] Comment on above: Performed By: #### C BC #### [facility] [address] [place] [address] Dr. Kathy Will MANUAL DIFF REQ NO Normal [facility] Comment on above: Performed By: #### C BC #### [facility] [address] [place] [address] Dr. Kathy Will MCH (RBC) [Entitic mass] 32.2 pg Normal 25.9-34.0 [facility] Comment on above: Performed By: #### C BC #### [facility] [address] [place] [address] Dr. Kathy Will MCHC (RBC) [Mass/Vol] 33.7 g/dL Normal 29.9-35.2 [facility] Comment on above: Performed By: #### C BC #### [facility] [address] [place] [address] Dr. Kathy Will MCV (RBC) [Entitic vol] 95.5 fL Critically high 80.0-94.0 [facility] Comment on above: Performed By: #### C BC #### [facility] [address] [place] [address] Dr. Kathy Will MONO # 0.5 103/ul Normal 0.3-0.8 [facility] Comment on above: Performed By: #### C BC #### [facility] [address] [address] [address] Kathy Will Monocytes/100 WBC (Bld) 9.2 % Normal 1.7-12.0 [facility] Comment on above: Performed By: #### C BC #### [facility] [address] [place] [address] Dr. Kathy Will NEUT # 2.4 103/ul Normal 1.4-6.5 [facility] Comment on above: Performed By: #### C BC #### [facility] [address] [place] [address] Dr. Kathy Will Neutrophils/100 WBC (Bld) 47.9 % Normal 43.0-75.0 [facility] Comment on above: Performed By: #### C BC #### [facility] [address] [place] [address] Dr. Kathy Will Platelet mean volume (Bld) [Entitic vol] 10.1 fL Normal 9.5-13.5 [facility] Comment on above: Performed By: #### C BC #### [facility] [address] [place] [address] Dr. Kathy Will PLT 157 103/ul Normal 150-450 [facility] Comment on above: Performed By: #### C BC #### [facility] [address] [place] [address] Dr. Kathy Will RBC 3.57 106/ul Critically low 4.70-6.10 [facility] Comment on above: Performed By: #### C BC #### [facility] [address] [place] [address] Dr. Kathy Will WBC 5.1 103/ul Normal 4.0-11.0 [facility] Comment on above: Performed By: #### C BC #### [facility] [address] [address] [address] Kathy Will FERRITINon 01-05-2022 Ferritin [Mass/Vol] 27.0 ng/mL Normal 26.0-388.0 [facility] Comment on above: Performed By: #### C BC #### [facility] [address] [address] [address] Kathy Will GLYCOHEMOGLOBIN A1Con 2021 ADA RECOMMENDATION SEE BELOW Normal [facility] Comment on above: Result Comment: ADA RECOMMENDED LIMIT 4.0 - 6.0 ADA THERAPEUTIC TARGET < 7.0 ACTION SUGGESTED > 7.0 Performed By: #### A 1C #### [facility] [address] [address] [address] Kathy Will Glucose [Mass/Vol] 169 mg/dL Normal [facility] Comment on above: Performed By: #### A 1C #### [facility] [address] [address] [address] Kathy Will HbA1c (Bld) [Mass fraction] 7.5 % Critically high 4.5-6.2 [facility] Comment on above: Performed By: #### A 1C #### [facility] [address] [address] [address] Kathy Will IRON AND TIBCon 01-05-2022 % SATURATION 19.7 % Normal [facility] Comment on above: Performed By: #### C BC #### [facility] [address] [address] [address] Kathy Will Iron [Mass/Vol] 71.0 ug/dL Normal 65.0-175.0 [facility] Comment on above: Performed By: #### C BC #### [facility] [address] [address] [address] Kathy Will TIBC DIRECT 360.0 ug/dL Normal 250.0-450.0 [facility] Comment on above: Performed By: #### C BC #### [facility] [address] [address] [address] Kathy Will LIPID PROFILEon 01-05-2022 CHOL-HDL RATIO NORM SEE BELOW Normal [facility] Comment on above: Result Comment: 3.3 - 4.4 LOW RISK 4.4 - 7.1 AVERAGE RISK 7.1 - 11.0 MODERATE RISK >11.0 HIGH RISK Performed By: #### C BC #### [facility] [address] [address] [address] Kathy Will Cholesterol [Mass/Vol] 137 mg/dL Normal <=200 [facility] Comment on above: Performed By: #### C BC #### [facility] [address] [address] [address] Kathy Will Cholesterol in HDL [Mass/Vol] 42 mg/dL Normal 40-60 [facility] Comment on above: Performed By: #### C BC #### [facility] [address] [address] [address] Kathy Will Cholesterol in LDL [Mass/Vol] 66.2 mg/dL Normal [facility] Comment on above: Performed By: #### C BC #### [facility] [address] [address] [address] Kathy Will Cholesterol.total/Cho lesterol in HDL [Mass ratio] 3.3 {ratio} Normal [facility] Comment on above: Performed By: #### C BC #### [facility] [address] [address] [address] Kathy Will HDL NORMAL > or = 60 mg/dl - LOW CARDIOVASCULAR RISK <40 mg/dl - HIGH CARDIOVASCULAR RISK Normal [facility] Comment on above: Performed By: #### C BC #### [facility] [id number] Kathy Will LDL CALC NORMAL SEE BELOW Normal [facility] Comment on above: Result Comment: <100 mg/dl OPTIMAL 100 - 129 mg/dl NEAR OR ABOVE OPTIMAL 130 - 159 mg/dl BORDERLINE HIGH 160 - 189 mg/dl HIGH >190 mg/dl VERY HIGH Performed By: #### C BC #### [facility] [address] [address] [address] Kathy Will Triglyceride [Mass/Vol] 144 mg/dL Normal <=150 [facility] Comment on above: Performed By: #### C BC #### [facility] [address] [place] [address] Dr. Kathy Will VLDL CALC 28.8 mg/dL Normal [facility] Comment on above: Performed By: #### C BC #### [facility] [address] [place] [address] Dr. Kathy Will MICROALBUMIN, RAND URon 07- mALB <1.3 Normal <=30.0 [facility] Comment on above: Performed By: #### M ALBR #### [facility] [address] [place] [address] Dr. Kathy Will PROF CHEM 8 (BAS METB)on Anion gap [Moles/Vol] 15.3 mmol/L Normal [facility] Comment on above: Performed By: #### C BC #### [facility] [address] [place] [address] Dr. Kathy Will Calcium [Mass/Vol] 8.8 mg/dL Normal 8.5-10.1 [facility] Comment on above: Performed By: #### C BC #### [facility] [address] [place] [address] Dr. Kathy Will Chloride [Moles/Vol] 104 mmol/L Normal 98-107 [facility] Comment on above: Performed By: #### C BC #### [facility] [address] [place] [address] Dr. Kathy Will CO2 [Moles/Vol] 23.9 mmol/L Normal 21.0-32.0 [facility] Comment on above: Performed By: #### C BC #### [facility] [address] [place] [address] Dr. Kathy Will Creatinine [Mass/Vol] 0.82 mg/dL Normal 0.70-1.30 [facility] Comment on above: Performed By: #### C BC #### [facility] [address] [place] [address] Dr. Kathy Will EGFR-AF GIBRALTARIAN >60 Normal >=60 [facility] Comment on above: Performed By: #### C BC #### [facility] [address] [place] [address] Dr. Kathy Will EGFR-NON AF GIBRALTARIAN >60 Normal >=60 [facility] Comment on above: Performed By: #### C BC #### [facility] [address] [place] [address] Dr. Kathy Will Glucose [Mass/Vol] 175 mg/dL Critically high 74-106 [facility] Comment on above: Performed By: #### C BC #### [facility] [address] [place] [address] Dr. Kathy Will Potassium [Moles/Vol] 4.2 mmol/L Normal 3.5-5.1 [facility] Comment on above: Performed By: #### C BC #### [facility] [address] [place] [address] Dr. Kathy Will Sodium [Moles/Vol] 139 mmol/L Normal 136-145 [facility] Comment on above: Performed By: #### C BC #### [facility] [address] [place] [address] Dr. Kathy Will Urea nitrogen [Mass/Vol] 15.0 mg/dL Normal 7.0-18.0 [facility] Comment on above: Performed By: #### C BC #### [facility] [address] [place] [address] Dr. Kathy Will Urea nitrogen/Creatinine [Mass ratio] 18.3 mg/mg Normal [facility] Comment on above: Performed By: #### C BC #### [facility] [address] [place] [address] Dr. Kathy Will SGPTon 01-05-2022 ALT [Catalytic activity/Vol] 21 U/L Normal 16-63 [facility] Comment on above: Performed By: #### C BC #### [facility] [address] [place] [address] Dr. Kathy Will VITAMIN B12on 01-05-2022 Cobalamin (Vitamin B12) [Mass/Vol] 360.0 pg/mL Normal 193.0-986.0 [facility] Comment on above: Performed By: #### C BC #### [facility] [address] [place] [address] Dr. Kathy Will GLYCOHEMOGLOBIN A1Con 2021 ADA RECOMMENDATION ADA THERAPEUTIC TARGET 6.0 - 7.0 ACTION SUGGESTED > 7.0 Normal [facility] Comment on above: Performed By: #### A 1C #### [facility] [address] [place] [address] Dr. Kathy Will Glucose [Mass/Vol] 197 mg/dL Normal [facility] Comment on above: Performed By: #### A 1C #### [facility] [address] [place] [address] Dr. Kathy Will HbA1c (Bld) [Mass fraction] 8.5 % Critically high <=6.0 [facility] Comment on above: Performed By: #### A 1C #### [facility] [address] [place] [address] Dr. Kathy Will CBC AUTO DIFFon 06-29-2021 BASO # 0.0 103/ul Normal 0.0-0.1 [facility] Comment on above: Performed By: #### C BC #### [facility] [address] [place] [address] Dr. Kathy Will Basophils/100 WBC (Bld) 0.8 % Normal 0.2-2.0 [facility] Comment on above: Performed By: #### C BC #### [facility] [address] [place] [address] Dr. Kathy Will EO # 0.2 103/ul Normal 0.0-0.7 [facility] Comment on above: Performed By: #### C BC #### [facility] [address] [place] [address] Dr. Kathy Will Eosinophils/100 WBC (Bld) 2.8 % Normal 0.9-7.0 [facility] Comment on above: Performed By: #### C BC #### [facility] [address] [place] [address] Dr. Kathy Will Erythrocyte distribution width (RBC) [Ratio] 12.7 % Normal 11.0-15.0 [facility] Comment on above: Performed By: #### C BC #### [facility] [address] [place] [address] Dr. Kathy Will Hematocrit (Bld) [Volume fraction] 39.0 % Critically low 42.0-54.0 [facility] Comment on above: Performed By: #### C BC #### [facility] [address] [place] [address] Dr. Kathy Will Hemoglobin (Bld) [Mass/Vol] 12.9 g/dL Critically low 14.0-18.0 [facility] Comment on above: Performed By: #### C BC #### [facility] [address] [place] [address] Dr. Kathy Will IG # 0.01 10e3/ul Normal 0.00-0.03 [facility] Comment on above: Performed By: #### C BC #### [facility] [address] [place] [address] Dr. Kathy Will IG % 0.2 % Normal 0.0-0.5 [facility] Comment on above: Performed By: #### C BC #### [facility] [address] [place] [address] Dr. Kathy Will LYMPH # 1.9 103/ul Normal 1.2-3.8 [facility] Comment on above: Performed By: #### C BC #### [facility] [address] [place] [address] Dr. Kathy Will Lymphocytes/100 WBC (Bld) 36.2 % Normal 20.5-60.0 [facility] Comment on above: Performed By: #### C BC #### [facility] [address] [place] [address] Dr. Kathy Will MANUAL DIFF REQ NO Normal [facility] Comment on above: Performed By: #### C BC #### [facility] [address] [place] [address] Dr. Kathy Will MCH (RBC) [Entitic mass] 32.2 pg Normal 25.9-34.0 [facility] Comment on above: Performed By: #### C BC #### [facility] [address] [place] [address] Dr. Kathy Will MCHC (RBC) [Mass/Vol] 33.1 g/dL Normal 29.9-35.2 [facility] Comment on above: Performed By: #### C BC #### [facility] [address] [place] [address] Dr. Kathy Will MCV (RBC) [Entitic vol] 97.3 fL Critically high 80.0-94.0 [facility] Comment on above: Performed By: #### C BC #### [facility] [address] [place] [address] Dr. Kathy Will MONO # 0.5 103/ul Normal 0.3-0.8 [facility] Comment on above: Performed By: #### C BC #### [facility] [address] [place] [address] Dr. Kathy Will Monocytes/100 WBC (Bld) 9.4 % Normal 1.7-12.0 [facility] Comment on above: Performed By: #### C BC #### [facility] [address] [place] [address] Dr. Kathy Will NEUT # 2.7 103/ul Normal 1.4-6.5 [facility] Comment on above: Performed By: #### C BC #### [facility] [address] [place] [address] Dr. Kathy Will Neutrophils/100 WBC (Bld) 50.6 % Normal 43.0-75.0 [facility] Comment on above: Performed By: #### C BC #### [facility] [address] [place] [address] Dr. Kathy Will Platelet mean volume (Bld) [Entitic vol] 10.2 fL Normal 9.5-13.5 [facility] Comment on above: Performed By: #### C BC #### [facility] [address] [place] [address] Dr. Kathy Will PLT 152 103/ul Normal 150-450 [facility] Comment on above: Performed By: #### C BC #### [facility] [address] [place] [address] Dr. Kathy Will RBC 4.01 106/ul Critically low 4.70-6.10 [facility] Comment on above: Performed By: #### C BC #### [facility] [address] [place] [address] Dr. Kathy Will WBC 5.3 103/ul Normal 4.0-11.0 [facility] Comment on above: Performed By: #### C BC #### [facility] [address] [place] [address] Dr. Kathy Will FERRITINon 06-29-2021 Ferritin [Mass/Vol] 29.0 ng/mL Normal 17.9-464.0 [facility] Comment on above: Performed By: #### F ETIBC, FERR, VITB12 #### [facility] [address] [place] [address] Dr. Kathy Will IRON AND TIBCon 06-29-2021 % SATURATION 22.9 % Normal [facility] Comment on above: Performed By: #### F ETIBC, FERR, VITB12 #### [facility] [address] [place] [address] Dr. Kathy Will Iron [Mass/Vol] 83.0 ug/dL Normal 49.0-181.0 [facility] Comment on above: Performed By: #### F ETIBC, FERR, VITB12 #### [facility] [address] [place] [address] Dr. Kathy Will TIBC DIRECT 362.0 ug/dL Normal 261.0-497.0 [facility] Comment on above: Performed By: #### F ETIBC, FERR, VITB12 #### [facility] [address] [place] [address] Dr. Kathy Will VITAMIN B12on 06-29-2021 Cobalamin (Vitamin B12) [Mass/Vol] 296.0 pg/mL Normal 239.0-931.0 [facility] Comment on above: Performed By: #### F ETIBC, FERR, VITB12 #### [facility] [address] [address] [address] Kathy Will Vital Signs Date Time Vital Sign Value Performing Clinician Facility 01-09-2024 10:06-0400 Body height 182.88 cm [facility] 01-09-2024 10:06-0400 Body mass index (BMI) [Ratio] 26.3 kg/m2 [facility] 01-09-2024 10:06-0400 Body weight 88.16 kg [facility] 01-09-2024 10:06-0400 Diastolic blood pressure 75 mm[Hg] [facility] 01-09-2024 10:06-0400 Heart rate 65 /min [facility] 01-09-2024 10:06-0400 Respiratory rate 12 /min [facility] 01-09-2024 10:06-0400 Systolic blood pressure 134 mm[Hg] [facility] 10-10-2023 10:04-0400 Body height 182.88 cm [facility] 10-10-2023 10:04-0400 Body mass index (BMI) [Ratio] 26.3 kg/m2 [facility] 10-10-2023 10:04-0400 Body weight 88.11 kg [facility] 10-10-2023 10:04-0400 Diastolic blood pressure 74 mm[Hg] [facility] 10-10-2023 10:04-0400 Heart rate 65 /min [facility] 10-10-2023 10:04-0400 Respiratory rate 12 /min [facility] 10-10-2023 10:04-0400 Systolic blood pressure 124 mm[Hg] [facility] 07-11-2023 09:30-0500 Body height 182.88 cm Luis Enrique Ball Other [employer] Other 07-11-2023 09:30-0500 Body mass index (BMI) [Ratio] 26.34 kg/m2 Luis Enrique Ball Other [employer] Other 07-11-2023 09:30-0500 Body weight 88.09 kg Luis Enrique Ball Other [employer] Other 07-11-2023 09:30-0500 Diastolic blood pressure 75 mm[Hg] Luis Enrique Ball Other [employer] Other 07-11-2023 09:30-0500 Respiratory rate 12 /min Luis Enrique Ball Other [employer] Other 07-11-2023 09:30-0500 Systolic blood pressure 137 mm[Hg] Luis Enrique Ball Other [employer] Other 04-10-2023 09:30-0400 Body height 182.88 cm Luis Enrique Ball Other [employer] Other 04-10-2023 09:30-0400 Body mass index (BMI) [Ratio] 26.25 kg/m2 Luis Enrique Ball Other [employer] Other 04-10-2023 09:30-0400 Body weight 87.82 kg Luis Enrique Ball Other [employer] Other 04-10-2023 09:30-0400 Diastolic blood pressure 85 mm[Hg] Luis Enrique Ball Other [employer] Other 04-10-2023 09:30-0400 Respiratory rate 12 /min Luis Enrique Ball Other [employer] Other 04-10-2023 09:30-0400 Systolic blood pressure 135 mm[Hg] Luis Enrique Ball Other [employer] Other 01-06-2023 10:30-0400 Body height 182.88 cm Luis Enrique Ball Other [employer] Other 01-06-2023 10:30-0400 Body mass index (BMI) [Ratio] 25.96 kg/m2 Luis Enrique Ball Other [employer] Other 01-06-2023 10:30-0400 Body weight 86.82 kg Luis Enrique Ball Other [employer] Other 01-06-2023 10:30-0400 Diastolic blood pressure 77 mm[Hg] Luis Enrique Ball Other [employer] Other 01-06-2023 10:30-0400 Respiratory rate 12 /min Luis Enrique Ball Other [employer] Other 01-06-2023 10:30-0400 Systolic blood pressure 136 mm[Hg] Luis Enrique Ball Other [employer] Other 12-28-2022 11:45-0400 Body height 182.88 cm Luis Enrique Ball Other [employer] Other 12-28-2022 11:45-0400 Body mass index (BMI) [Ratio] 26.31 kg/m2 Luis Enrique Ball Other [employer] Other 12-28-2022 11:45-0400 Body weight 88 kg Luis Enrique Ball Other [employer] Other 12-28-2022 11:45-0400 Diastolic blood pressure 58 mm[Hg] Luis Enrique Ball Other [employer] Other 12-28-2022 11:45-0400 Respiratory rate 12 /min Luis Enrique Ball Other [employer] Other 12-28-2022 11:45-0400 Systolic blood pressure 94 mm[Hg] Luis Enrique Ball Other [employer] Other Encounters Encounter Date Encounter Type Care Provider Facility Start: 01-09-2024 End: 01-09-2024 ambulatory [facility] Work Phone: Start: 01-09-2024 End: 01-09-2024 Patient encounter procedure [facility] Work Phone: Start: 11-15-2023 Non-patient / Non-visit [facility] Work Phone: Start: 10-10-2023 End: 10-10-2023 ambulatory [facility] Work Phone: Start: 10-10-2023 End: 10-10-2023 Patient encounter procedure [facility] Work Phone: Start: 07-27-2023 Non-patient / Non-visit [facility] Work Phone: Start: 07-11-2023 End: 07-11-2023 ambulatory Luis Enrique Ball Other [employer] Other Start: 07-11-2023 Office outpatient vi sit 25 minutes Luis Enrique Ball [facility] Start: 06-28-2023 End: 06-28-2023 ambulatory Luis Enrique Ball Other [employer] Other Start: 06-28-2023 Telephone encounter Luis Enrique Ball [facility] Start: 06-20-2023 End: 06-20-2023 ambulatory Luis Enrique Ball Other [employer] Other Start: 06-20-2023 Telephone encounter Luis Enrique Ball [facility] Start: 05-10-2023 End: 05-10-2023 ambulatory Luis Enrique Ball Other [employer] Other Start: 05-10-2023 Telephone encounter Luis Enrique Ball [facility] Start: 04-27-2023 End: 04-27-2023 ambulatory Luis Enrique Ball Other [employer] Other Start: 04-27-2023 Telephone encounter Luis Enrique Ball [facility] Start: 04-11-2023 End: 04-11-2023 ambulatory Luis Enrique Ball Other [employer] Other Start: 04-11-2023 Telephone encounter Luis Enrique Ball [facility] Start: 04-10-2023 End: 04-10-2023 ambulatory Lui Senrique Ball Other [employer] Other Start: 04-10-2023 Office outpatient vi sit 25 minutes Luis Enrique Ball [facility] Start: 03-23-2023 End: 03-23-2023 ambulatory Luis Enrique Ball Other [employer] Other Start: 03-23-2023 Telephone encounter Luis Enrique Ball [facility] Start: 01-09-2023 End: 01-09-2023 ambulatory Luis Enrique Ball Other [employer] Other Start: 01-09-2023 Telephone encounter Luis Enrique Ball [facility] Start: 01-06-2023 End: 01-06-2023 ambulatory Luis Enrique Ball Other [employer] Other Start: 01-06-2023 Patient encounter procedure Luis Enrique Ball [facility] Start: 12-28-2022 End: 12-28-2022 ambulatory Luis Enrique Ball Other [employer] Other Start: 12-28-2022 Office outpatient vi sit 25 minutes Luis Enrique Ball [facility] Start: 12-16-2022 End: 12-16-2022 ambulatory Luis Enrique Ball Other [employer] Other Start: 12-16-2022 Telephone encounter Luis Enrique Ball [facility] Start: 12-15-2022 End: 12-15-2022 ambulatory Luis Enrique Ball Other [employer] Other Start: 12-15-2022 Telephone encounter [facility] En[facility] Start: 12-02-2022 End: 12-02-2022 ambulatory Luis Enrique Zhao Other [employer] Other Start: 12-02-2022 Telephone encounter Luis En[facility] Start: 03-31-2022 End: 04-01-[address] LUIS ENRIQUE ZHAO Facility:[facility] Start: 01-05-2022 End: 01-06-[address] LUIS ENRIQUE ZHAO Facility:[facility] Start: 01-04-2022 Adult health examination Luis Enrique Zhao Other [employer] Other Start: 01-04-2022 Encounter for genera l adult medical examination without abnormal findings Luis Enrique Zhao Other [employer] Other Start: 09-27-2021 End: 09-28-[address] [...] neoplasm of prostate Luis Enrique Zhao Other Plan of Treatment Date Care Activity Detail Author Comprehensive metabo lic 2000 panel - Serum or Plasma [facility] enter Microalbumin [Mass/volume] in Urine [facility] Immunizations Immunization Date Immunization Notes Care Provider Fa cility 04-10-2023 influenza virus vaccine, unspecified formulation [facility] 04-10-2023 influenza, high dose seasonal, preservative-free Luis Enrique Zhao Other [facility] [employer] Other 03-25-2022 influenza virus vaccine, unspecified formulation [facility] 03-25-2022 influenza, high dose seasonal, preservative-free Luis Enrique Zhao Other [facility] [employer] Other 04-27-2021 COVID-19 Vaccine Pfi zer - Documentation Purposes Only Luis Enrique Zhao Other [facility] 03-25-2021 influenza virus vaccine, split virus (incl. purified surface antigen) Luis Enrique Zhao Other [employer] Other 03-25-2021 influenza virus vaccine, unspecified formulation [facility] 02-27-2020 influenza virus vaccine, split virus (incl. purified surface antigen) Luis Enrique Zhao Other [facility] [employer] Other 02-27-2020 influenza virus vaccine, unspecified formulation [facility] 03-28-2019 influenza virus vaccine, split virus (incl. purified surface antigen) Luis Enrique Zhao Other [facility] [employer] Other 03-28-2019 influenza virus vaccine, unspecified formulation [facility] 02-21-2018 influenza virus vaccine, split virus (incl. purified surface antigen) Luis Enrique Zhao Other [facility] [employer] Other 02-21-2018 influenza virus vaccine, unspecified formulation [facility] 03-14-2017 influenza virus vaccine, split virus (incl. purified surface antigen) Luis Enrique Zhao Other [facility] [employer] Other 03-14-2017 influenza virus vaccine, unspecified formulation [facility] 03-18-2016 influenza virus vaccine, split virus (incl. purified surface antigen) Luis Enrique Zhao Other [facility] [employer] Other 03-18-2016 influenza virus vaccine, unspecified formulation [facility] 05-21-2015 pneumococcal conjuga te vaccine, 13 valent Luis Enrique Zhao Other [facility] 03-13-2015 influenza virus vaccine, split virus (incl. purified surface antigen) Luis Enrique Pavel Other [facility] [employer] Other 03-13-2015 influenza virus vaccine, unspecified formulation [facility] 09-23-2014 diphtheria, tetanus toxoids and acellular pertussis vaccine, unspecified formulation Luis Enrique Zhao Other [facility] 03-17-2014 tetanus and diphther ia toxoids, adsorbed, preservative free, for adult use (5 Lf of tetanus toxoid and 2 Lf of diphtheria toxoid) Luis Enrique Zhao Other [facility] 03-18-2013 tetanus and diphther ia toxoids, adsorbed, preservative free, for adult use (5 Lf of tetanus toxoid and 2 Lf of diphtheria toxoid) Luis Enrique Zhao Other [facility] 04-16-2008 pneumococcal polysaccharide vaccine, 23 valent Luis Enrique Zhao Other [facility] Payers Date Payer Category Payer Medicare [id number] 1945 Unknown [id number] 1945 Unknown [id number] 1945 Unknown [id number] 1945 Unknown [id number] Social History Date Type Detail Facility Sex Assigned At [facility] [employer] Other Start: 1945 Sex Assigned At Male [facility] Start: 01-09-2024 Tobacco smoking stat us [facility] Ex-smoker (finding) [facility] Medical Equipment Procedure Code Equipment Code Equipment Origin al Text Equipment Identifier Dates Pen [place] [id number] X 5 MM Start: 04-10-2023 Clinical Notes 12-15-2022 to 07-11-2023 Note Date & Type Note Facility 07-11-2023 Evaluation note Encounter Date Diagnosis Assessment Notes Jun, Type 2 diabetes mellitus with hyperglycemia, without [...] office visit. Continue regular routine monitoring of A1C, Microalbumin, Dilated eye exam and Foot exam Jun, Type 2 diabetes mellitus with diabetic polyneuropathy, without long-term current use of insulin (ICD-10 - E11.42) Inspect feet daily for cuts and calluses.Recommen d diabetic shoes and inserts to prevent callus formation.Fall precautions. Jun, Primary hypertension (ICD-10 - I10) This patient is instructed to consume a healthy, low-fat, low-salt diet. They are also encouraged to continue exercise to achieve/maintain a normal BMI. Patient is instructed on home BP measurements: - rest for 5 minutes w/o talking.- positioned w/ feet on floor and arm supported.- average best 2/3 readings w/ goal < 135/85.- update office w/ home readings in 2 weeks. Jun, Hyperlipidemia, mixed (ICD-10 - E78.2) Instructed on diet and exercise with continued statin therapy.Discussed the beneficial effects of lowering cholesterol in reducing the risk for cerebrovascular and cardiovascular disease. Jun, Gastroesophageal reflux disease with esophagitis without hemorrhage (ICD-10 - K21.00) Avoid lying flat after eating. Avoid eating 2 hours prior to bedtime. Smaller, frequent meals may be better tolerated.Weight loss if overweight.PPI with any heartburn.Monitor for dysphagia. Jun, ANDRE (generalized anxiety disorder) (ICD-10 - F41.1) Healthy diet and exercise No change in medical treatment Avoid abrupt d/c of meds Jun, Nicotine dependence, cigarettes, in remission (ICD-10 - F17.211) Jun, Other iron deficiency anemia (ICD-10 - D50.8) Donating blood every 60 days. Denies heartburn or dysphagia Denies abd pain, melena or hematochezia Last Scope in 2013. Continue to monitor, suggest holding on further donation of blood [employer] Other 01-09-2024 Evaluation note* Encounter Date Diagnosis Assessment Notes Treatment Notes Treatment Clinical Notes Jun, Anemia due to other cause, not classified (ICD-10 - D64.89) [employer] Other 11-16-2023 Evaluation note* Encounter Date Diagnosis Assessment Notes Treatment Notes Treatment Clinical Notes Apr, Type 2 diabetes mellitus with diabetic polyneuropathy, without long-term current use of insulin (ICD-10 - E11.42) [employer] Other 10-30-2023 Evaluation note* Encounter Date Diagnosis Assessment Notes Treatment Notes Treatment Clinical Notes Mar, Type 2 diabetes mellitus with [...] E11.42) Inspect feet daily for cuts and calluses.Recommend diabetic shoes and inserts to prevent callus formation.Fall precautions. Mar, Primary hypertension (ICD-10 - I10) This patient is instructed to consume a healthy, low-fat, low-salt diet. They are also encouraged to continue exercise to achieve/maintain a normal BMI. Mar, Hyperlipidemia, mixe d (ICD-10 - E78.2) Instructed on diet and [...] Fe studies 9 years since last scope [employer] Other 07-28-2023 Evaluation note* Encounter Date Diagnosis Assessment Notes Treatment Notes Treatment Clinical Notes Dec, Medicare annual wellness visit, subsequent [...] E11.42) Inspect feet daily for cuts and calluses.Recommend diabetic shoes and inserts to prevent callus formation.Fall precautions. Dec, Hyperlipidemia, mixe d (ICD-10 - E78.2) Instructed on diet and [...] dependence, cigarettes, in remission (ICD-10 - F17.211) [employer] Other 07-19-2023 Evaluation note* Encounter Date Diagnosis Assessment Notes Treatment Notes Treatment Clinical Notes Dec, Dizzy spells (ICD-10 - R42) [...] habits No melena or hematochezia Recheck CBC [employer] Other 07-06-2023 Evaluation note* Encounter Date Diagnosis Assessment Notes Treatment Notes Treatment Clinical Notes Dec, Bruit of right carotid artery (ICD-10 - R09.89) Carotid US: < 50% - 12/2022 [employer] Other Evaluation noteNo InformationNorth [facility] [employer] Other Evaluation note* Diagnosis Onset Date Resolution Status Anemia acute Benign prostatic hyperplasia with lower urinary tract symptoms acute Elevated cholesterol acute GERD (gastroesophageal reflux disease) acute Hypertension acute Type 2 diabetes mellitus with hyperglycemia acute [facility] Work Phone: Evaluation note* Diagnosis Onset Date Resolution Status Anemia acute Benign prostatic hyperplasia with lower urinary tract symptoms acute Elevated cholesterol acute GERD (gastroesophageal reflux disease) acute Hypertension acute Type 2 diabetes mellitus with hyperglycemia acute Medicare annual wellness visit, subsequent noneactive [facility] Work Phone: History general Narrative - Reported* Type Description Date Medical History 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 classified elsewhere Medical History Benign prostatic hyp erplasia with lower urinary tract symptoms Medical History Gastroesophageal ref lux disease with esophagitis without hemorrhage Medical History Essential hypertension Medical History Hyperlipidemia, mixed Medical History Type 2 diabetes joy itus with hyperglycemia, without long-term current use of insulin Medical History Iron deficiency anemia Medical History Anemia due to other cause, not c lassified Medical History Candidal balanitis Medical History Tobacco user Medical History Nicotine dependence, cigarettes, in remission Medical History Xerosis cutis Medical History Lumbar spondylosis Medical History Type 2 diabetes joy itus with diabetic polyneuropathy, without long-term current use of insulin Medical History High risk medication use Medical History Dysuria Medical History Acute bronchitis due to other sp ecified organisms Surgical History VASECTOMY COLONOSCOPY Surgical History EGD 08/2013 Hospitalization History SEE SURGICAL HX [facility] [employer] Other Summary Purpose Family History No Family History Records Found Advance Directives Advance Directive Response Recorded Date/ Time Advance Directives No July 11, 2023 11:19am Chief Complaint and Reason for Visit Chief Complaint Amb Documentation 3 month follow up Reason for Visit Anemia Benign prostatic hyperplasia with lower urinary tract symptoms Elevated cholesterol GERD (gastroesophageal reflux disease) Hypertension Type 2 diabetes mellitus with hyperglycemia Chief Complaint 3 month follow up Reason for Visit Anemia Benign prostatic hyperplasia with lower urinary tract symptoms Elevated cholesterol GERD (gastroesophageal reflux disease) Hypertension Type 2 diabetes mellitus with hyperglycemia Medicare annual wellness visit, subsequent Additional Source Comments (unrecognized sect ion and content) No Status Records Found INFORMATION SOURCE (unrecogn ized section and content) DATE CREATED AUTHOR 04/06/2022 [employer] REASON FOR VISIT (unrecogniz ed section and content) DiarrheaNo InformationTestin g resultsBP TROUBLESWellnessHolter [id number] results3 month Follow up/FLU [facility] resultsFYI TrulicityReminderrepeat labsLab results3 month Follow up Care Teams (unrecognized sec tion and content) Team Status: Active Member Role Status Dates Luis Enrique Pavel , DO Primary Care Provider Active Team Status: Active Member Role Status Dates Luis Enrique Pavel , Primary Care Provider Active Start: July 27, 2023 KOKO Choudhary Attending Provider Active Start : July 27, 2023 Team Status: Inactive Member Role Status Dates Luis Enrique Pavel , DO Primary Care Provide r, Attending Provider Active Start: October 10, 2023 End: October 10, 2023 Team Status: Active Member Role Status Dates Luis Enrique Pavel , DO Primary Care Provide r, Attending Provider Active Start: November 15, 2023 Team Status: Inactive Member Role Status Dates Luis Enrique Zhao , DO Primary Care Provide r, Attending Provider Active Start: January 09, 2024 End: January 09, 2024 Goals (unrecognized section and content) Goals may be documented in a n alternate section FOR RECORDS PERTAINING TO PATIENTS WHO ARE [...] BE BASED ON THE PRIMARY CLINICAL RECORDS. [facility] [employer] [facility]. provides no warranty or guarantee of the accuracy or completeness of information in this document.
[2024-01-10 08:16] LABS: Basophils Percent Auto 0.5 % (0.2-2.0); Eosinophils Absolute Auto 0.1 10^3/uL (0.0-0.7); Eosinophils Percent Auto 1.8 % (0.9-7.0); Hematocrit 41.4 % (42.0-54.0); Hemoglobin 14.1 g/dL (14.0-18.0); Immature Granulocytes Abs Auto 0.02 10^3/uL (0.00-0.03); Immature Granulocytes Pct Auto 0.3 % (0.0-0.5); Lymphocytes Absolute Auto 1.8 10^3/uL (1.2-3.8); Lymphocytes Percent Auto 22.5 % (20.5-60.0); Mean Corpuscular HGB Conc 34.1 g/dL (29.9-35.2); Mean Corpuscular Hemoglobin 33.7 pg (25.9-34.0); Mean Corpuscular Volume 98.8 fL (80.0-94.0); Mean Platelet Volume 10.2 fL (9.5-13.5); Monocytes Absolute Auto 0.8 10^3/uL (0.3-0.8); Monocytes Percent Auto 9.5 % (1.7-12.0); Neutrophils Absolute Auto 5.2 10^3/uL (1.4-6.5); Neutrophils Percent Auto 65.4 % (43.0-75.0); Platelet Count 150 10^3/uL (150-450); Red Blood Count 4.19 10^6/uL (4.70-6.10)
[2024-01-10 08:27] LABS: Microalbumin Urine Random <1.3 mg/dL (<=30.0)
[2024-01-10 09:15] LABS: Alanine Aminotransferase 21 U/L (16-63); Albumin Globulin Ratio 1.2; Alkaline Phosphatase 81 U/L (46-116); Aspartate Amino Transferase 14 U/L (15-37); BUN Creatinine Ratio 16.9; Bilirubin Total 0.7 mg/dL (0.2-1.0); Carbon Dioxide 26.4 mmol/L (21.0-32.0); Chloride 105 mmol/L (98-107); Chol HDL Ratio 3.3; Cholesterol 156 mg/dL (<=200); Estimated GFR (African America >60 (>=60); Estimated GFR (Non-African Ame >60 (>=60); Globulin 3.4 g/dL; Glucose 165 mg/dL (74-106); HDL Cholesterol 47 mg/dL (40-60); Potassium 4.4 mmol/L (3.5-5.1); Sodium 140 mmol/L (136-145); Total Protein 7.4 g/dL (6.4-8.2); Triglycerides 208 mg/dL (<=150); VLDL CHOLESTEROL 41.6 mg/dL
== END 2024-01-10 07:46 | disposition home or self-care (01) ==
LOC: LAB 07:46
PROVIDERS: PCP Internal Medicine; Visit Provider Internal Medicine
DX: E11.65 Type 2 diabetes mellitus with hyperglycemia (principal); E78.00 Pure hypercholesterolemia, unspecified; I10 Essential (primary) hypertension
CPT/HCPCS: 36415; 80053; 80061; 82043; 85025

== ENCOUNTER 2025-01-02 09:38 | Outpatient (OUT) | payer MEDICARE, SELFPAY ==
--- OUTSIDE RECORDS SUMMARY | 2025-01-02 09:44 | XMS_ITS | Clinical Summary ---
Author Organization [facility] Address [address] [place] [id number] Care Team Providers Care Care Professionals Name Role Phone Unavailable Primary Care Provider Unavailabl e Allergies No known active allergies Medications RESTASIS 0.05 % ophthalmic emulsion 08/19/2015 Active simvastatin (ZOCOR) 10 mg tablet 09/01/2015 Active baclofen (LIORESAL) 10 mg tablet 09/01/2015 Active escitalopram oxalate (LEXAPRO) 5 mg tablet 08/23/2015 Active glimepiride (AMARYL) 2 mg tablet 09/01/2015 Active lisinopril (ZESTRIL, PRINIVIL) 5 mg tablet 09/01/2015 Active aspirin, enteric coated (ASPIRIN, ENTERIC COATED) 81 mg EC tablet Take 81 mg by mouth once daily. Active MULTIVIT WITH IRON-MINERALS (CENTURY SENIOR ORAL) Take by mouth. Active OMEPRAZOLE ORAL Take by mouth once daily. Active Active Problems Problem Noted Date Diagnosed Date Former smoker 01/13/2016 Mixed hyperlipidemia 01/13/2016 Depression 01/13/2016 Type 2 diabetes mellitus, wi thout long-term current use of insulin 01/13/2016 Family History Medical History Relation Comments Coronary Artery Disease Father Cataract Mother Relation Status Comments Father Mother Social History Tobacco Use Types Packs/Day Years Used Date Smoking Tobacco: Former Cigarettes Q uit: 07/28/1987 Alcohol Use Standard Drinks/Week Comments Yes 1 (1 standard drink = 0.6 oz pur e alcohol) Sex and Gender Information Value Date Recorded Sex Assigned at Not on file Legal Sex Male 10:22 AM EDT Gender Identity Not on file Sexual Orientation Not on file Last Filed Vital Signs Vital Sign Reading Time Taken Comments Blood Pressure 116/66 02/03/2016 9:15 AM EDT Pulse 57 02/03/2016 9:15 AM EDT Temperature 36.3 C (97.3 F) 02/03/2016 8:13 AM EDT Respiratory Rate 16 02/03/2016 9:15 AM EDT Oxygen Saturation 95% 02/03/2016 9:15 AM EDT Inhaled Oxygen Concentration - - Weight 87.5 kg (192 lb 14.4 oz) 02/03/2016 8:13 AM EDT Height 177.8 cm (5' 10 ) 01/13/2016 12: 23 PM EDT Body Mass Index 27.68 01/13/2016 12:23 PM EDT Plan of Treatment Health Maintenance Due Date Last Done Comments Anxiety Screening 1961 Depression Screening 1963 DTaP,Tdap,Td Vaccine (1 - Tdap) 1962 Diabetes Screening 01/13/1988 Pneumococcal Vaccine: 50+ (1 of 1 - PCV) 1993 Shingrix Vaccine (1 of 2) 1993 RSV Vaccine (1 - 1-dose 75+ series) 2018 Covid-19 Vaccine ( - season) 2024 Advance Directive Discussion 06/12/2024 Influenza Vaccine (#1) 2025 Medical Devices Implanted Type Area [employer] Lieutenant Device Identifier Shelf Expiration Date Model / Serial / Lot Lens Acrysof Iq +20 Diopter Natural 0 D Biconvex Acrylic Methacrylate - [id number] Implanted:Qty: 1 on 01/20/2016 at [facility] Intraocular Lens Left: Eye - Lens [employer] 12/09/2020 [id number] 20.0 / [id number] / Lens Acrysof Iq +18 Diopter Natural 0 D Biconvex Acrylic Methacrylate - [id number] Implanted:Qty: 1 on 02/03/2016 at [facility] Intraocular Lens Right: Eye - Lens [employer] 10/09/2020 [id number] 18.0 / [id number] / Insurance MMO [employer] PPO Member Subscriber Plan / Payer (Ef fective 2015-Present) Name:Luis Miguel Schreiber Relation to Subscriber:Self Name:Luis Miguel Schreiber Payer ID:Not on file Type:PPO Address: [place] [id number] [facility] [address] [place] [id number]
--- OUTSIDE RECORDS SUMMARY | 2025-01-02 10:06 | XMS_ITS | CCD ---
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 Name Role Phone ARTIS, DR SALINAS Attending Unavailable BALL, DR SALINAS [...] Care Unavailable BALL, DR SALINAS Admitting Unavailable Artis, Luis Enrique Unavailable Tripp Quezada, May Attending Unavailable Tripp Quezada, May Referring Unavailable Luis Enrique Zhao DO Primary Care Provider Luis Enrique Zhao DO Attending Provider Allergies Allergy Classification Reported Allergen(s) Allergy Type Date of Onset Reaction(s) Facility (15 sources) Indomethacin Drug Allergy 5 Unknown, Unknown Reaction [facility] (1 source) empagliflozin Drug Allergy 5 genital rash [facility] Medications Current Medications Medication Drug Class(es) Dates Sig (Normalized) Sig (Original) 24 hr alfuzosin hydrochloride 10 mg extended release oral tablet (3 sources) alpha-Adrenergic Sydney Alfuzosin HCl ER 10 MG TAKE 1 TABLET EVERY DAY for 90 Active baclofen 10 mg oral tablet (13 sources) gamma-Aminobutyric Acid-ergic Agonist take 1 tablet by mouth every twelve hours Baclofen 10 MG 1 tablet as needed Orally Twice a day Active betamethasone 0.5 mg/ml / clotrimazole 10 mg/ml topical cream (2 sources) Azole Antifungal, Corticosteroid Start: 10-04-2024 Clotrimazole-Beta methasone 1-0.05 % cream Active 1 APPLIC TOPICAL Twice daily 15 October 04, 2024 12:00am Complies with drug therapy escitalopram 5 mg oral tablet (20 sources) Serotonin Reuptake Inhibitor Start: 05-02-2024 End: 10-28-2024 Escitalopram Oxalate 5 mg tablet Active 0 .ROUTE .COMPLEX October 28, 2024 6:36pm TAKE 1 TABLET AT BEDTIME Complies with drug therapy Start: 10-09-2023 End: 05-02-2024 take 1 tablet by mouth once daily Escitalopram Oxalate 5 mg tablet Discontinued 5 MG PO Daily October 09, 2023 12:00am May 02, 2024 2:52pm Escitalopram Oxa late 5 MG TAKE 1 TABLET AT BEDTIME Active glimepiride 2 mg oral tablet (20 sources) Sulfonylurea Start: 11-05-2024 End: 11-05-2024 take 2 tablets by mouth in the morning Glimepiride 2 mg tablet Active 2 MG PO Every morning 90 November 05, 2024 7:59pm Take with 4mg tablet 30 minutes prior to bkfst Complies with drug therapy Start: 11-05-2024 End: 11-05-2024 Glimepiride 4 mg tablet Acti ve 4 MG PO Daily 90 November 05, 2024 7:58pm Take with 2mg dose, 30 minutes prior to bkfst Complies with drug therapy Start: 11-05-2024 End: 11-05-2024 Glimepiride 2 mg tablet Disc ontinued 0 .ROUTE .COMPLEX November 05, 2024 7:27pm November 05, 2024 7:58pm TAKE 1 TABLET EVERY MORNING WITH 4MG TABLET 30 MINUTES BEFORE BREAKFAST Start: 11-05-2024 End: 11-05-2024 take 1 tablet by mouth once daily Glimepiride 2 mg tablet Discontinued 2 MG PO Daily November 05, 2024 12:00am November 05, 2024 7:27pm Start: 11-05-2024 End: 11-05-2024 take 1 tablet by mouth once daily Glimepiride 4 mg tablet Discontinued 4 MG PO Daily November 05, 2024 12:00am November 05, 2024 7:58pm Start: 08-16-2024 End: 11-05-2024 take 2 tablets by mouth once daily Glimepiride 4 mg tablet Discontinued 8 MG PO Daily 60 30 August 165 10:44am November 05, 2024 5:14pm Start: 06-17-2024 End: 08-16-2024 Glimepiride 4 mg tablet Disc ontinued 0 .ROUTE .COMPLEX June 17, 2024 1:48pm August 16, 2024 10:45am TAKE 1 TABLET EVERY DAY 30 MINUTES BEFORE BREAKFAST Start: 06-17-2024 End: 08-16-2024 Glimepiride 4 mg tablet Disc ontinued 0 .ROUTE .COMPLEX June 17, 2024 1:48pm August 16, 2024 10:45am TAKE 1 TABLET EVERY DAY 30 MINUTES BEFORE BREAKFAST Start: 06-17-2024 Glimepiride 4 mg tablet Active 0 .ROUTE .COMPLEX June 17, 2024 12:48pm TAKE 1 TABLET EVERY DAY 30 MINUTES BEFORE BREAKFAST Start: 01-09-2024 End: 06-17-2024 take 1 tablet by mouth once daily Glimepiride 4 mg tablet Discontinued 4 MG PO Daily 90 January 09, 2024 10:31am June 17, 2024 1:48pm Start: 01-09-2024 End: 07-08-2024 take 2 tablets by mouth in the morning Glimepiride 2 mg tablet Discontinued 2 MG PO Every morning January 09, 2024 12:00am July 08, 2024 10:20am administer 30 minutes prior to bkfst w/ the 4mg dose Start: 01-09-2024 take 4 mg by mouth i n the morning Glimepiride Active 2 MG PO Every morning January 09, 2024 12:00am administer 30 minutes prior to bkfst w/ the 4mg dose Start: 11-16-2023 End: 01-09-2024 take 6 mg by mouth once daily Glimepiride 4 mg tablet Discontinued 6 MG PO Daily November 16, 2023 12:45pm January 09, 2024 10:31am Start: 11-16-2023 End: 01-09-2024 take 6 mg by mouth once daily Glimepiride Discontinued 6 MG PO Daily November 16, 2023 12:45pm January 09, 2024 10:31am Start: 10-09-2023 End: 11-16-2023 take 1 tablet by mouth once daily Glimepiride 4 mg tablet Discontinued 4 MG PO Daily October 09, 2023 12:00am November 16, 2023 12:45pm Glimepiride 4 MG TAKE 1 TABLET EVERY DAY 30 MINUTES BEFORE BREAKFAST Active lisinopril 5 mg oral tablet (3 sources) Angiotensin Converting Enzyme Inhibitor take 1 tablet by mouth every twenty-four hours Lisinopril 5 MG 1 tablet Orally Once a day Active omeprazole 20 mg delayed release oral capsule (20 sources) Proton Pump Inhibitor Start: Omeprazole 20 mg capsule,delayed release(DR/EC) Active 0 .ROUTE .COMPLEX March 05, 2024 7:45pm TAKE 1 CAPSULE EVERY DAY ON AN EMPTY STOMACH FOLLOWED IN 30 MINUTES BY BREAKFAST Complies with drug therapy Start: 03-05-2024 Omeprazole Act kimo 0 .ROUTE .COMPLEX March 05, 2024 7:45pm TAKE 1 CAPSULE EVERY DAY ON AN EMPTY STOMACH FOLLOWED IN 30 MINUTES BY BREAKFAST Start: 10-09-2023 End: 03-05-2024 take 1 capsule by mouth once daily Omeprazole 20 mg capsule,delayed release(DR/EC) Discontinued 20 MG PO Daily October 09, 2023 12:00am March 05, 2024 7:45pm Omeprazole 20 MG TAKE 1 CAPSULE EVERY DAY ON AN EMPTY STOMACH FOLLOWED IN 30 MINUTES BY BREAKFAST Active Omeprazole 20 mg capsule,del ayed release(DR/EC) (3 sources) Start: 03-05-2024 Omeprazole 20 mg capsule,delayed release(DR/EC) Active 0 .ROUTE .COMPLEX March 05, 2024 7:45pm TAKE 1 CAPSULE EVERY DAY ON AN EMPTY STOMACH FOLLOWED IN 30 MINUTES BY BREAKFAST Start: 03-05-2024 Omeprazole 20 mg capsule,delayed release(DR/EC) Active 0 .ROUTE .COMPLEX March 05, 2024 6:45pm TAKE 1 CAPSULE EVERY DAY ON AN EMPTY STOMACH FOLLOWED IN 30 MINUTES BY BREAKFAST pioglitazone 30 mg oral tablet (20 sources) Peroxisome Proliferator Receptor alpha Agonist, Peroxisome Proliferator Receptor gamma Agonist, Thiazolidinedione Start: 06-17-2024 Pioglitazone 30 mg tablet Active 0 .ROUTE .COMPLEX June 17, 2024 1:48pm TAKE 1 TABLET EVERY DAY Complies with drug therapy Start: 10-10-2023 End: 06-17-2024 take 1 tablet by mouth once daily Pioglitazone 30 mg tablet Discontinued 30 MG PO Daily October 10, 2023 10:24am June 17, 2024 1:48pm take 1 tablet by zeinab th once daily Pioglitazone HCl 30 MG TAKE 1 TABLET BY MOUTH EVERY DAY Active simvastatin 10 mg oral tablet (20 sources) HMG-CoA Reductase Inhibitor Start: 11-04-2024 Simvastatin 10 mg tablet Active 0 .ROUTE .COMPLEX November 04, 2024 5:43pm TAKE 1 TABLET EVERY EVENING Complies with drug therapy Start: 08-02-2023 End: 11-04-2024 take 1 tablet by mouth once daily in the evening Simvastatin 10 mg tablet Discontinued 10 MG PO Every evening August 02, 2023 1:00am November 04, 2024 5:43pm take 1 tablet by zeinab th every twenty-four hours Simvastatin 10 MG 1 tablet in the evening Orally Once a day Active SITagliptin 50 mg oral tablet (5 sources) Dipeptidyl Peptidase 4 Inhibitor Start: 10-04-2024 End: 11-05-2024 take 1 tablet by mouth once daily Sitagliptin Phosphate (Januvia) 50 mg tablet Active 50 MG PO Daily November 05, 2024 1:00pm Complies with drug therapy telmisartan 20 mg oral tablet (10 sources) Angiotensin 2 Receptor Sydney Start: 11-04-2024 Telmisartan 20 mg tablet Active 0 .ROUTE .COMPLEX November 04, 2024 5:43pm TAKE 1 TABLET EVERY DAY Complies with drug therapy Start: 07-18-2024 End: 11-04-2024 take 1 tablet by mouth once daily Telmisartan 20 mg tablet Discontinued 20 MG PO Daily July 22, 2024 2:13pm November 04, 2024 5:43pm triamcinolone acetonide 1 mg/ml topical cream (20 sources) Corticosteroid Start: 07-11-2024 Triamcinolone Acetonide 0.1 % cream Active 1 APPLIC TOPICAL Twice daily as needed for pain, itching 80 July 11, 2024 10:35am Complies with drug therapy Start: 10-09-2023 End: 07-11-2024 Triamcinolone Acetonide 0.1 % cream Discontinued 1 APPLIC TOPICAL Twice a Week October 09, 2023 12:00am July 11, 2024 10:37am Triamcinolone Ac etonide 0.1 % 1 application [...] Drug Class(es) Dates Sig (Normalized) Sig (Original) doxycycline hyclate 100 mg oral capsule (4 sources) Tetracycline-cla ss Drug Start: 08-16-2024 End: 10-04-2024 take 1 capsule by mouth twice daily Doxycycline Hyclate 100 mg capsule Discontinued 100 MG PO Twice daily August 16, 2024 1:00am October 04, 2024 9:00am 0.5 ml dulaglutide 1.5 mg/ml auto-injector (20 sources) GLP-1 Receptor Agonist Start: 08-25-2023 End: [...] Subcutaneous weekly for 28 days Mar, Active empagliflozin 10 mg oral tablet (6 sources) Sodium-Glucose Cotransporter 2 Inhibitor Start: 09-24-2024 End: 12-04-2024 take 1 tablet by mouth once daily Empagliflozin (Jardiance) 10 mg tablet Discontinued 0 .ROUTE .COMPLEX September 24, 2024 7:48am December 04, 2024 12:04pm TAKE 1 TABLET BY MOUTH EVERY DAY Start: 08-28-2024 End: 09-24-2024 take 1 tablet by mouth once daily Empagliflozin (Jardiance) 10 mg tablet Discontinued 10 MG PO Daily August 28, 2024 12:00am September 24, 2024 7:48am Problems Active Problems Problem Classification Problem Date Documented Da te Episodic/Chronic Acute bronchitis (15 sources) Acute bronchitis; Translations: [Acute bronchitis due to other specified organisms] 08-16-2024 Episodic Anxiety disorders (13 sources) Generalized anxiety disorder; Translations: [Generalized anxiety disorder] Chronic Cataract (1 source) Presence of intraocular lens; Translations: [Presence of intraocular lens] Onset: 08-31-2023 Chronic Conditions associated with dizziness or vertigo (3 sources) Dizziness and giddiness; Translations: [Dizziness on standing up] Episodic Deficiency and other anemia (13 sources) [...] Onset: 06-29-2021 Episodic Deficiency and other anemia (20 sources) Anemia; Translations: [Other specified anemias] 10-08-2023 Episodic Deficiency and other anemia (15 sources) Iron deficiency anemia; Translations: [Iron deficiency anemia, unspecified] Episodic Deficiency and other anemia (1 source) Other iron deficiency anemias Episodic Diabetes mellitus with complications (20 sources) Type 2 diabetes mellitus with hyperglycemia; Translations: [Hyperglycemia due to type 2 diabetes mellitus] Onset: 09-27-2021 Chronic Diabetes mellitus without complication (1 source) Type 2 diabetes mellitus without complications; Translations: [Type 2 diabetes mellitus without complications] Onset: 08-31-2023 Chronic Disorders of lipid metabolism (20 sources) Mixed hyperlipidemia; Translations: [Mixed hyperlipidemia] Onset: 06-12-1961 Chronic Esophageal disorders (20 sources) Moulton's esophagus; 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] 10-08-2023 Chronic Essential hypertension (20 sources) Essential (primary) hypertension; Translations: [Essential hypertension] Onset: 01-11-2022 Chronic Comment on above: Segmental pressures: normal - 05/2024 Genitourinary symptoms and ill-defined conditions (14 sources) Dysuria; Translations: [Dysuria] Episodic Hyperplasia of prostate (20 sources) Lower urinary tract symptoms due to benign prostatic hypertrophy; Translations: [Benign prostatic hyperplasia with lower urinary tract symptoms] Chronic Immunizations and screening for infectious disease (3 sources) Vaccination given; Translations: [Encounter for immunization] Episodic Influenza (1 source) Influenza due to other identified influenza virus with other respiratory manifestations; Translations: [Influenza with other respiratory manifestations] 08-16-2024 Episodic Mood disorders (2 sources) Depression; Translations: [Depression, unspecified] Onset: 05-20-2014 Chronic Mood disorders (1 source) Mood disorders; Translations: [Depression, unspecified] Onset: 05-20-2014 Mycoses (18 sources) Candidal balanitis; Translations: [Candidal balanitis] 10-04-2024 Episodic Osteoarthritis (3 sources) Idiopathic osteoarthritis; 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, right knee] Onset: 05-15-2018 Chronic Other aftercare (13 sources) H/O: high risk medication; Translations: [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] Episodic Other aftercare (3 sources) Long-term current use of drug therapy; Translations: [Other residential (current) drug therapy] Episodic Other aftercare (1 source) 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; Translations: [High risk medication use] Episodic Other circulatory disease (1 source) Other specified symptoms and signs involving the circulatory and respiratory systems Episodic Other gastrointestinal disorders (5 sources) Other fecal abnormalities; Translations: [Abnormal feces] Episodic Other gastrointestinal disorders (8 sources) Loose stool; Translations: [Other fecal abnormalities] 04-10-2024 Episodic Other injuries and conditions due to [...] source) Tobacco use; Translations: [Tobacco user] Episodic Retinal detachments; defects; vascular occlusion; and retinopathy (2 sources) Exudative age-related macular degeneration, left eye, with active choroidal neovascularization; Translations: [Nonexudative age-related macular degeneration, left eye, intermediate dry stage] Onset: 08-31-2023 Chronic Spondylosis; intervertebral disc disorders; other back problems [...] Test Name Value Interpretation Reference Range Facility Influenza virus B Ag [Presen ce] in Upper respiratory specimen by Rapid immunoassayon 08-16-2024 FLUBV Ag IA.rapid Ql (Nph) Influenza virus B Ag [Presence] in Upper respiratory specimen by Rapid immunoassay [facility] No Panel Informationon 08-16 Influenza Type A (Rapid) Positive [facility] POC SARS CoV-2 Antigen Negative [facility] Glucose mean value [Mass/vol ume] in Blood Estimated from glycated hemoglobinon 07-05-2024 Average glucose Estimated from glycated hemoglobin (Bld) [Mass/Vol] Glucose mean value [Mass/volume] in Blood Estimated from glycated hemoglobin [facility] Hemoglobin A1c percentageon 07-05-2024 HbA1c (Bld) [Mass fraction] Hemoglobin A1c percentage High 4.5-6.2 [facility] Comment on above: ADA RECOMMENDED LIMI T 4.0 - 6.0ADA THERAPEUTIC TARGET < 7.0ACTION SUGGESTED> 7.0 Glucose mean value [Mass/vol ume] in Blood Estimated from glycated hemoglobinon 03-27-2024 Average glucose Estimated from glycated hemoglobin (Bld) [Mass/Vol] 166 mg/dL [facility] Laboratory - Hematology and Cell countson 03-27-2024 HbA1c (Bld) [Mass fraction] 7.4 % High 4.5-6.2 [facility] Comment on above: ADA RECOMMENDED LIMI T 4.0 - 6.0ADA THERAPEUTIC TARGET < 7.0ACTION SUGGESTED> 7.0 Glucose mean value [Mass/vol ume] in Blood Estimated from glycated hemoglobinon 11-15-2023 Average glucose Estimated from glycated hemoglobin (Bld) [Mass/Vol] 169 mg/dL [facility] Laboratory - Hematology and Cell countson 11-15-2023 HbA1c (Bld) [Mass fraction] 7.5 % High 4.5-6.2 [facility] Comment on above: ADA RECOMMENDED LIMI T 4.0 - 6.0ADA THERAPEUTIC TARGET < 7.0ACTION SUGGESTED> 7.0 METHYLMALONIC ACID (MMA)on Methylmalonic Acid, Serum 151 nmol/L Normal 0-378 [facility] Comment on above: Performed By: #### C BC #### [facility] [address] [place] [address] Dr. Kathy Will CBC AUTO DIFFon 03-31-2022 BASO # 0.0 103/ul Normal 0.0-0.1 [facility] Comment on above: Performed By: #### C BC #### [facility] [address] [address] [address] Kathy Will Basophils/100 WBC (Bld) 0.8 % Normal 0.2-2.0 [facility] Comment on above: Performed By: #### C BC #### [facility] [address] [address] [address] Kathy Will EO # 0.2 103/ul Normal 0.0-0.7 [facility] Comment on above: Performed By: #### C BC #### [facility] [address] [address] [address] Kathy Will Eosinophils/100 WBC (Bld) 3.3 % Normal 0.9-7.0 [facility] Comment on above: Performed By: #### C BC #### [facility] [address] [address] [address] Kathy Will Erythrocyte distribution width (RBC) [Ratio] 13.4 % Normal 11.0-15.0 [facility] Comment on above: Performed By: #### C BC #### [facility] [address] [address] [address] Kathy Will Hematocrit (Bld) [Volume fraction] 38.4 % Critically low 42.0-54.0 [facility] Comment on above: Performed By: #### C BC #### [facility] [address] [address] [address] Kathy Will Hemoglobin (Bld) [Mass/Vol] 12.5 g/dL Critically low 14.0-18.0 [facility] Comment on above: Performed By: #### C BC #### [facility] [address] [address] [address] Kathy Will IG # 0.01 10e3/ul Normal 0.00-0.03 [facility] Comment on above: Performed By: #### C BC #### [facility] [address] [place] [address] Dr. Kathy Will IG % 0.2 % Normal 0.0-0.5 [facility] Comment on above: Performed By: #### C BC #### [facility] [address] [place] [address] Dr. Kathy Will LYMPH # 1.9 103/ul Normal 1.2-3.8 [facility] Comment on above: Performed By: #### C BC #### [facility] [address] [place] [address] Dr. Kathy Will Lymphocytes/100 WBC (Bld) 37.2 % Normal 20.5-60.0 [facility] Comment on above: Performed By: #### C BC #### [facility] [address] [place] [address] Dr. Kathy iWll MANUAL DIFF REQ NO Normal [facility] Comment on above: Performed By: #### C BC #### [facility] [address] [place] [address] Dr. Kathy Will MCH (RBC) [Entitic mass] 31.8 pg Normal 25.9-34.0 [facility] Comment on above: Performed By: #### C BC #### [facility] [address] [place] [address] Dr. Kathy Will MCHC (RBC) [Mass/Vol] 32.6 g/dL Normal 29.9-35.2 [facility] Comment on above: Performed By: #### C BC #### [facility] [address] [place] [address] Dr. Kathy Will MCV (RBC) [Entitic vol] 97.7 fL Critically high 80.0-94.0 [facility] Comment on above: Performed By: #### C BC #### [facility] [address] [place] [address] Dr. Kathy Will MONO # 0.4 103/ul Normal 0.3-0.8 [facility] Comment on above: Performed By: #### C BC #### [facility] [address] [place] [address] Dr. Kathy Will Monocytes/100 WBC (Bld) 8.5 % Normal 1.7-12.0 [facility] Comment on above: Performed By: #### C BC #### [facility] [address] [place] [address] Dr. Kathy Will NEUT # 2.5 103/ul Normal 1.4-6.5 [facility] Comment on above: Performed By: #### C BC #### [facility] [address] [place] [address] Dr. Kathy Will Neutrophils/100 WBC (Bld) 50.0 % Normal 43.0-75.0 [facility] Comment on above: Performed By: #### C BC #### [facility] [address] [place] [address] Dr. Kathy Will Platelet mean volume (Bld) [Entitic vol] 10.1 fL Normal 9.5-13.5 [facility] Comment on above: Performed By: #### C BC #### [facility] [address] [place] [address] Dr. Kathy Will PLT 147 103/ul Critically low 150-450 [facility] Comment on above: Performed By: #### C BC #### [facility] [address] [place] [address] Dr. Kathy Will RBC 3.93 106/ul Critically low 4.70-6.10 [facility] Comment on above: Performed By: #### C BC #### [facility] [address] [place] [address] Dr. Kathy Will WBC 5.1 103/ul Normal 4.0-11.0 [facility] Comment on above: Performed By: #### C BC #### [facility] [address] [place] [address] Dr. Kathy Will FERRITINon 03-31-2022 Ferritin [Mass/Vol] 47.0 ng/mL Normal 26.0-388.0 [facility] Comment on above: Performed By: #### C BC #### [facility] [address] [place] [address] Dr. Kathy Will IRON AND TIBCon 03-31-2022 % SATURATION 39.5 % Normal [facility] Comment on above: Performed By: #### C BC #### [facility] [address] [place] [address] Dr. Kathy Will Iron [Mass/Vol] 139.0 ug/dL Normal 65.0-175.0 [facility] Comment on above: Performed By: #### C BC #### [facility] [address] [place] [address] Dr. Kathy Will TIBC DIRECT 352.0 ug/dL Normal 250.0-450.0 [facility] Comment on above: Performed By: #### C BC #### [facility] [address] [place] [address] Dr. Kathy Will RETICULOCYTEon 03-31-2022 RETIC 2.05 % Normal 0.60-3.10 [facility] Comment on above: Performed By: #### R ETIC, CBC #### [facility] [address] [place] [address] Dr. Kathy Will VITAMIN B12on 03-31-2022 Cobalamin (Vitamin B12) [Mass/Vol] 391.0 pg/mL Normal 193.0-986.0 [facility] Comment on above: Performed By: #### A 1C #### [facility] [address] [place] [address] Dr. Kathy Will METHYLMALONIC ACID (MMA)on 0 01-08-2022 Methylmalonic Acid, Serum 142 nmol/L Normal 0-378 [facility] Comment on above: Performed By: #### M MA2 #### [facility] [address] [place] [address] Dr. Kathy Will CBC AUTO DIFFon 01-05-2022 BASO # 0.1 103/ul Normal 0.0-0.1 [facility] Comment on above: Performed By: #### C BC #### [facility] [address] [place] [address] Dr. Kathy Will Basophils/100 WBC (Bld) 1.0 % Normal 0.2-2.0 [facility] Comment on above: Performed By: #### C BC #### [facility] [address] [place] [address] Dr. Kathy Will EO # 0.2 103/ul Normal 0.0-0.7 [facility] Comment on above: Performed By: #### C BC #### [facility] [address] [place] [address] Dr. Kathy Will Eosinophils/100 WBC (Bld) 3.1 % Normal 0.9-7.0 [facility] Comment on above: Performed By: #### C BC #### [facility] [address] [place] [address] Dr. Kathy Will Erythrocyte distribution width (RBC) [Ratio] 13.2 % Normal 11.0-15.0 [facility] Comment on above: Performed By: #### C BC #### [facility] [address] [place] [address] Dr. Kathy Will Hematocrit (Bld) [Volume fraction] 34.1 % Critically low 42.0-54.0 [facility] Comment on above: Performed By: #### C BC #### [facility] [address] [place] [address] Dr. Kathy Will Hemoglobin (Bld) [Mass/Vol] 11.5 g/dL Critically low 14.0-18.0 [facility] Comment on above: Performed By: #### C BC #### [facility] [address] [place] [address] Dr. Kathy Will IG # 0.01 10e3/ul Normal 0.00-0.03 [facility] Comment on above: Performed By: #### C BC #### [facility] [address] [place] [address] Dr. Kathy Will IG % 0.2 % Normal 0.0-0.5 [facility] Comment on above: Performed By: #### C BC #### [facility] Laboratory [address] [place] [address] Dr. Kathy Will LYMPH # 2.0 103/ul Normal 1.2-3.8 [facility] Comment on above: Performed By: #### C BC #### [facility] Laboratory [address] [place] [address] Dr. Kathy Will Lymphocytes/100 WBC (Bld) 38.6 % Normal 20.5-60.0 [facility] Comment on above: Performed By: #### C BC #### [facility] Laboratory [address] [place] [address] Dr. Kathy Will MANUAL DIFF REQ NO Normal [facility] Comment on above: Performed By: #### C BC #### [facility] Laboratory [address] [place] [address] Dr. Kathy Will MCH (RBC) [Entitic mass] 32.2 pg Normal 25.9-34.0 [facility] Comment on above: Performed By: #### C BC #### [facility] Laboratory [address] [place] [address] Dr. Kathy Will MCHC (RBC) [Mass/Vol] 33.7 g/dL Normal 29.9-35.2 [facility] Comment on above: Performed By: #### C BC #### [facility] Laboratory [address] [place] [address] Dr. Kathy Will MCV (RBC) [Entitic vol] 95.5 fL Critically high 80.0-94.0 [facility] Comment on above: Performed By: #### C BC #### [facility] Laboratory [address] [place] [address] Dr. Kathy iWll MONO # 0.5 103/ul Normal 0.3-0.8 [facility] Comment on above: Performed By: #### C BC #### [facility] Laboratory [address] [place] [address] Dr. Kathy Will Monocytes/100 WBC (Bld) 9.2 % Normal 1.7-12.0 [facility] Comment on above: Performed By: #### C BC #### [facility] [address] [place] [address] Dr. Kathy Will NEUT # 2.4 103/ul Normal 1.4-6.5 [facility] Comment on above: Performed By: #### C BC #### [facility] Laboratory [address] [address] [address] Kathy Will Neutrophils/100 WBC (Bld) 47.9 % Normal 43.0-75.0 [facility] Comment on above: Performed By: #### C BC #### [facility] [address] [address] [address] Kathy Will Platelet mean volume (Bld) [Entitic vol] 10.1 fL Normal 9.5-13.5 [facility] Comment on above: Performed By: #### C BC #### [facility] [address] [address] [address] Kathy Will PLT 157 103/ul Normal 150-450 [facility] Comment on above: Performed By: #### C BC #### [facility] [address] [address] [address] Kathy Will RBC 3.57 106/ul Critically low 4.70-6.10 [facility] Comment on above: Performed By: #### C BC #### [facility] [address] [address] [address] Kathy Will WBC 5.1 103/ul Normal 4.0-11.0 [facility] Comment on above: Performed By: #### C BC #### [facility] Laboratory [address] [place] [address] Dr. Kathy Will FERRITINon 01-05-2022 Ferritin [Mass/Vol] 27.0 ng/mL Normal 26.0-388.0 [facility] Comment on above: Performed By: #### C BC #### [facility] [address] [place] [address] Dr. Kathy Will GLYCOHEMOGLOBIN A1Con 2021 ADA RECOMMENDATION SEE BELOW Normal [facility] Comment on above: Result Comment: ADA RECOMMENDED LIMIT 4.0 - 6.0 ADA THERAPEUTIC TARGET < 7.0 ACTION SUGGESTED > 7.0 Performed By: #### A 1C #### [facility] [address] [address] [address] Kathy Will Glucose [Mass/Vol] 169 mg/dL Normal [facility] Comment on above: Performed By: #### A 1C #### [facility] [address] [address] [address] Kathy Will HbA1c (Bld) [Mass fraction] 7.5 % Critically high 4.5-6.2 [facility] Comment on above: Performed By: #### A 1C #### [facility] [address] [address] [address] Kathy Will IRON AND TIBCon 01-05-2022 % SATURATION 19.7 % Normal [facility] Comment on above: Performed By: #### C BC #### [facility] [address] [address] [address] Kathy Will Iron [Mass/Vol] 71.0 ug/dL Normal 65.0-175.0 [facility] Comment on above: Performed By: #### C BC #### [facility] [address] [address] [address] Kathy Will TIBC DIRECT 360.0 ug/dL Normal 250.0-450.0 [facility] Comment on above: Performed By: #### C BC #### [facility] [address] [address] [address] Kathy Will LIPID PROFILEon 01-05-2022 CHOL-HDL RATIO NORM SEE BELOW Normal [facility] Comment on above: Result Comment: 3.3 - 4.4 LOW RISK 4.4 - 7.1 AVERAGE RISK 7.1 - 11.0 MODERATE RISK >11.0 HIGH RISK Performed By: #### C BC #### [facility] [address] [place] [address] Dr. Kathy Will Cholesterol [Mass/Vol] 137 mg/dL Normal <=200 [facility] Comment on above: Performed By: #### C BC #### [facility] [address] [address] [address] Kathy Will Cholesterol in HDL [Mass/Vol] 42 mg/dL Normal 40-60 [facility] Comment on above: Performed By: #### C BC #### [facility] [address] [address] [address] Kathy Will Cholesterol in LDL [Mass/Vol] 66.2 mg/dL Normal [facility] Comment on above: Performed By: #### C BC #### [facility] [address] [address] [address] Kathy Will Cholesterol.total/Cho lesterol in HDL [Mass ratio] 3.3 {ratio} Normal [facility] Comment on above: Performed By: #### C BC #### [facility] [address] [place] [address] Dr. Kathy Will HDL NORMAL > or = 60 mg/dl - LOW CARDIOVASCULAR RISK <40 mg/dl - HIGH CARDIOVASCULAR RISK Normal [facility] Comment on above: Performed By: #### C BC #### [facility] [address] [place] [address] Dr. Kathy Will LDL CALC NORMAL SEE BELOW Normal [facility] Comment on above: Result Comment: <100 mg/dl OPTIMAL 100 - 129 mg/dl NEAR OR ABOVE OPTIMAL 130 - 159 mg/dl BORDERLINE HIGH 160 - 189 mg/dl HIGH >190 mg/dl VERY HIGH Performed By: #### C BC #### [facility] [address] [place] [address] Dr. Kathy Will Triglyceride [Mass/Vol] 144 mg/dL Normal <=150 [facility] Comment on above: Performed By: #### C BC #### [facility] [address] [place] [address] Dr. Kathy Will VLDL CALC 28.8 mg/dL Normal [facility] Comment on above: Performed By: #### C BC #### [facility] [address] [place] [address] Dr. Kathy Will MICROALBUMIN, RAND URon - mALB <1.3 Normal <=30.0 [facility] Comment on above: Performed By: #### M ALBR #### [facility] [address] [place] [address] Dr. Kathy Will PROF CHEM 8 (BAS METB)on Anion gap [Moles/Vol] 15.3 mmol/L Normal [facility] Comment on above: Performed By: #### C BC #### [facility] [address] [address] [address] Kathy Will Calcium [Mass/Vol] 8.8 mg/dL Normal 8.5-10.1 [facility] Comment on above: Performed By: #### C BC #### [facility] [address] [address] [address] Kathy Will Chloride [Moles/Vol] 104 mmol/L Normal 98-107 [facility] Comment on above: Performed By: #### C BC #### [facility] [address] [address] [address] Kathy Will CO2 [Moles/Vol] 23.9 mmol/L Normal 21.0-32.0 [facility] Comment on above: Performed By: #### C BC #### [facility] [address] [place] [address] Dr. Kathy Will Creatinine [Mass/Vol] 0.82 mg/dL Normal 0.70-1.30 [facility] Comment on above: Performed By: #### C BC #### [facility] [address] [place] [address] Dr. Kathy Will EGFR-AF SAO TOMEAN >60 Normal >=60 [facility] Comment on above: Performed By: #### C BC #### [facility] [address] [place] [address] Dr. Kathy Will EGFR-NON AF SAO TOMEAN >60 Normal >=60 [facility] Comment on above: Performed By: #### C BC #### [facility] [address] [place] [address] Dr. Kathy Will Glucose [Mass/Vol] 175 mg/dL Critically high 74-106 [facility] Comment on above: Performed By: #### C BC #### [facility] [address] [place] [address] Dr. Kathy Will Potassium [Moles/Vol] 4.2 mmol/L Normal 3.5-5.1 [facility] Comment on above: Performed By: #### C BC #### [facility] [address] [place] [address] Dr. Kathy Will Sodium [Moles/Vol] 139 mmol/L Normal 136-145 [facility] Comment on above: Performed By: #### C BC #### [facility] [address] [place] [address] Dr. Kathy Will Urea nitrogen [Mass/Vol] 15.0 mg/dL Normal 7.0-18.0 [facility] Comment on above: Performed By: #### C BC #### [facility] [address] [place] [address] Dr. Kathy Will Urea nitrogen/Creatinine [Mass ratio] 18.3 mg/mg Normal [facility] Comment on above: Performed By: #### C BC #### [facility] [address] [place] [address] Dr. Kathy Will SGPTon 01-05-2022 ALT [Catalytic activity/Vol] 21 U/L Normal 16-63 [facility] Comment on above: Performed By: #### C BC #### [facility] [address] [place] [address] Dr. Kathy Will VITAMIN B12on 01-05-2022 Cobalamin (Vitamin B12) [Mass/Vol] 360.0 pg/mL Normal 193.0-986.0 [facility] Comment on above: Performed By: #### C BC #### [facility] [address] [place] [address] Dr. Kathy Will GLYCOHEMOGLOBIN A1Con 2021 ADA RECOMMENDATION ADA THERAPEUTIC TARGET 6.0 - 7.0 ACTION SUGGESTED > 7.0 Normal [facility] Comment on above: Performed By: #### A 1C #### [facility] [address] [place] [address] Dr. Kathy Will Glucose [Mass/Vol] 197 mg/dL Normal [facility] Comment on above: Performed By: #### A 1C #### [facility] [address] [place] [address] Dr. Kathy Will HbA1c (Bld) [Mass fraction] 8.5 % Critically high <=6.0 [facility] Comment on above: Performed By: #### A 1C #### [facility] [address] [address] [address] Kathy Will CBC AUTO DIFFon 06-29-2021 BASO # 0.0 103/ul Normal 0.0-0.1 [facility] Comment on above: Performed By: #### C BC #### [facility] [address] [place] [address] Dr. Kathy Will Basophils/100 WBC (Bld) 0.8 % Normal 0.2-2.0 [facility] Comment on above: Performed By: #### C BC #### [facility] [address] [place] [address] Dr. Kathy Will EO # 0.2 103/ul Normal 0.0-0.7 [facility] Comment on above: Performed By: #### C BC #### [facility] [address] [place] [address] Dr. Kathy Will Eosinophils/100 WBC (Bld) 2.8 % Normal 0.9-7.0 [facility] Comment on above: Performed By: #### C BC #### [facility] [address] [place] [address] Dr. Kathy Will Erythrocyte distribution width (RBC) [Ratio] 12.7 % Normal 11.0-15.0 [facility] Comment on above: Performed By: #### C BC #### [facility] [address] [place] [address] Dr. Kathy Will Hematocrit (Bld) [Volume fraction] 39.0 % Critically low 42.0-54.0 [facility] Comment on above: Performed By: #### C BC #### [facility] [address] [place] [address] Dr. Kathy Will Hemoglobin (Bld) [Mass/Vol] 12.9 g/dL Critically low 14.0-18.0 [facility] Comment on above: Performed By: #### C BC #### [facility] [address] [place] [address] Dr. Kathy Will IG # 0.01 10e3/ul Normal 0.00-0.03 [facility] Comment on above: Performed By: #### C BC #### [facility] [address] [place] [address] Dr. Kathy Will IG % 0.2 % Normal 0.0-0.5 [facility] Comment on above: Performed By: #### C BC #### [facility] [address] [place] [address] Dr. Kathy Will LYMPH # 1.9 103/ul Normal 1.2-3.8 [facility] Comment on above: Performed By: #### C BC #### [facility] [address] [place] [address] Dr. Kathy Will Lymphocytes/100 WBC (Bld) 36.2 % Normal 20.5-60.0 [facility] Comment on above: Performed By: #### C BC #### [facility] [address] [place] [address] Dr. Kathy Will MANUAL DIFF REQ NO Normal [facility] Comment on above: Performed By: #### C BC #### [facility] [address] [place] [address] Dr. Kathy Will MCH (RBC) [Entitic mass] 32.2 pg Normal 25.9-34.0 [facility] Comment on above: Performed By: #### C BC #### [facility] [address] [place] [address] Dr. Kathy Will MCHC (RBC) [Mass/Vol] 33.1 g/dL Normal 29.9-35.2 [facility] Comment on above: Performed By: #### C BC #### [facility] [address] [place] [address] Dr. Kathy Will MCV (RBC) [Entitic vol] 97.3 fL Critically high 80.0-94.0 [facility] Comment on above: Performed By: #### C BC #### [facility] [address] [place] [address] Dr. Kathy Will MONO # 0.5 103/ul Normal 0.3-0.8 [facility] Comment on above: Performed By: #### C BC #### [facility] [address] [place] [address] Dr. Kathy Will Monocytes/100 WBC (Bld) 9.4 % Normal 1.7-12.0 [facility] Comment on above: Performed By: #### C BC #### [facility] [address] [place] [address] Dr. Kathy Will NEUT # 2.7 103/ul Normal 1.4-6.5 [facility] Comment on above: Performed By: #### C BC #### [facility] [address] [place] [address] Dr. Kathy Will Neutrophils/100 WBC (Bld) 50.6 % Normal 43.0-75.0 [facility] Comment on above: Performed By: #### C BC #### [facility] [address] [place] [address] Dr. Kathy Will Platelet mean volume (Bld) [Entitic vol] 10.2 fL Normal 9.5-13.5 [facility] Comment on above: Performed By: #### C BC #### [facility] [address] [place] [address] Dr. Kathy Will PLT 152 103/ul Normal 150-450 [facility] Comment on above: Performed By: #### C BC #### [facility] [address] [place] [address] Dr. Kathy Will RBC 4.01 106/ul Critically low 4.70-6.10 [facility] Comment on above: Performed By: #### C BC #### [facility] [address] [place] [address] Dr. Kathy Will WBC 5.3 103/ul Normal 4.0-11.0 [facility] Comment on above: Performed By: #### C BC #### [facility] [address] [place] [address] Dr. Kathy Will FERRITINon 06-29-2021 Ferritin [Mass/Vol] 29.0 ng/mL Normal 17.9-464.0 [facility] Comment on above: Performed By: #### F ETIBC, FERR, VITB12 #### [facility] [address] [address] [address] Kathy Will IRON AND TIBCon 06-29-2021 % SATURATION 22.9 % Normal [facility] Comment on above: Performed By: #### F ETIBC, FERR, VITB12 #### [facility] [address] [address] [address] Kathy Will Iron [Mass/Vol] 83.0 ug/dL Normal 49.0-181.0 [facility] Comment on above: Performed By: #### F ETIBC, FERR, VITB12 #### [facility] [address] [address] [address] Kathy Will TIBC DIRECT 362.0 ug/dL Normal 261.0-497.0 [facility] Comment on above: Performed By: #### F ETIBC, FERR, VITB12 #### [facility] [address] [address] [address] Kathy Will VITAMIN B12on 06-29-2021 Cobalamin (Vitamin B12) [Mass/Vol] 296.0 pg/mL Normal 239.0-931.0 [facility] Comment on above: Performed By: #### F ETIBC, FERR, VITB12 #### [facility] [address] [address] [address] Kathy Will Vital Signs Date Time Vital Sign Value Performing Clinician Facility 01-02-2025 09:01-0400 Body height 182.88 cm T[employer] DO Work Phone: [facility] 01-02-2025 09:01-0400 Body mass index (BMI) [Ratio] 26.9 kg/m2 Luis Enrique [employer] DO Work Phone: [facility] 01-02-2025 09:01-0400 Body weight 90.03 kg Luis Enrique [employer] DO Work Phone: [facility] 01-02-2025 09:01-0400 Diastolic blood pressure 71 mm[Hg] [employer] Guru DO Work Phone: [facility] 01-02-2025 09:01-0400 Heart rate 66 /min Luis Enrique Ball DO Work Phone: [facility] 01-02-2025 09:01-0400 Respiratory rate 12 /min Luis Enrique Ball DO Work Phone: [facility] 01-02-2025 09:01-0400 Systolic blood pressure 137 mm[Hg] Luis Enrique Ball DO Work Phone: [facility] 12-04-2024 11:48-0400 Body height 182.88 cm Luis Enrique Ball DO Work Phone: [facility] 12-04-2024 11:48-0400 Body mass index (BMI) [Ratio] 26.6 kg/m2 Luis Enrique Ball DO Work Phone: [facility] 12-04-2024 11:48-0400 Body weight 89.01 kg Luis Enrique Ball DO Work Phone: [facility] 12-04-2024 11:48-0400 Diastolic blood pressure 78 mm[Hg] Luis Enrique Ball DO Work Phone: [facility] 12-04-2024 11:48-0400 Heart rate 86 /min Luis Enrique Ball DO Work Phone: [facility] 12-04-2024 11:48-0400 Respiratory rate 12 /min Luis Enrique Ball DO Work Phone: [facility] 12-04-2024 11:48-0400 Systolic blood pressure 132 mm[Hg] Luis Enrique Ball DO Work Phone: [facility] 10-04-2024 09:04-0400 Body height 182.[address] [facility] 10-04-2024 09:04-0400 Body mass index (BMI) [Ratio] 26.6 kg/m2 [facility] 10-04-2024 09:04-0400 Body weight 89.[address] [facility] 10-04-2024 09:04-0400 Diastolic blood pressure 72 mm[Hg] [facility] 10-04-2024 09:04-0400 Heart rate 77 /min [facility] 10-04-2024 09:04-0400 Respiratory rate 12 /min [facility] 10-04-2024 09:04-0400 Systolic blood pressure 134 mm[Hg] [facility] 08-16-2024 09:21-0500 Body height 182.[address] [facility] 08-16-2024 09:21-0500 Body mass index (BMI) [Ratio] 27 kg/m2 [facility] 08-16-2024 09:21-0500 Body weight 90.[address] [facility] 08-16-2024 09:21-0500 Diastolic blood pressure 66 mm[Hg] [facility] 08-16-2024 09:21-0500 Heart rate 85 /min [facility] 08-16-2024 09:21-0500 Respiratory rate 12 /min [facility] 08-16-2024 09:21-0500 Systolic blood pressure 108 mm[Hg] [facility] 07-11-2024 09:14-0500 Body height 182.[address] [facility] 07-11-2024 09:14-0500 Body mass index (BMI) [Ratio] 27 kg/m2 [facility] 07-11-2024 09:14-0500 Body weight 90.[address] [facility] 07-11-2024 09:14-0500 Diastolic blood pressure 90 mm[Hg] [facility] 07-11-2024 09:14-0500 Heart rate 75 /min [facility] 07-11-2024 09:14-0500 Respiratory rate 12 /min [facility] 07-11-2024 09:14-0500 Systolic blood pressure 145 mm[Hg] [facility] 04-10-2024 08:58-0400 Body height 182.[address] [facility] 04-10-2024 08:58-0400 Body mass index (BMI) [Ratio] 26.9 kg/m2 [facility] 04-10-2024 08:58-0400 Body weight 90.[address] [facility] 04-10-2024 08:58-0400 Diastolic blood pressure 63 mm[Hg] [facility] 04-10-2024 08:58-0400 Heart rate 84 /min [facility] 04-10-2024 08:58-0400 Respiratory rate 12 /min [facility] 04-10-2024 08:58-0400 Systolic blood pressure 128 mm[Hg] [facility] 01-09-2024 10:06-0400 Body height 182.[address] [facility] 01-09-2024 10:06-0400 Body mass index (BMI) [Ratio] 26.3 kg/m2 [facility] 01-09-2024 10:06-0400 Body weight 88.[address] [facility] 01-09-2024 10:06-0400 Diastolic blood pressure 75 mm[Hg] [facility] 01-09-2024 10:06-0400 Heart rate 65 /min [facility] 01-09-2024 10:06-0400 Respiratory rate 12 /min [facility] 01-09-2024 10:06-0400 Systolic blood pressure 134 mm[Hg] [facility] 10-10-2023 10:04-0400 Body height 182.[address] [facility] 10-10-2023 10:04-0400 Body mass index (BMI) [Ratio] 26.3 kg/m2 [facility] 10-10-2023 10:04-0400 Body weight 88.[address] [facility] 10-10-2023 10:04-0400 Diastolic blood pressure 74 mm[Hg] [facility] 10-10-2023 10:04-0400 Heart rate 65 /min [facility] 10-10-2023 10:04-0400 Respiratory rate 12 /min [facility] 10-10-2023 10:04-0400 Systolic blood pressure 124 mm[Hg] [facility] 07-11-2023 09:30-0500 Body height 182.88 cm Luis Enrique Ball Other [employer] Other 07-11-2023 09:30-0500 Body mass index (BMI) [Ratio] 26.34 kg/m2 Luis Enrique Ball Other [employer] Other 07-11-2023 09:30-0500 Body weight 88.09 kg Luis Enrique Ball Other [employer] Other 07-11-2023 09:30-0500 Diastolic blood pressure 75 mm[Hg] Luis Enrique Ball Other [employer] Other 07-11-2023 09:30-0500 Respiratory rate 12 /min Luis Enrique Ball Other [employer] Other 07-11-2023 09:30-0500 Systolic blood pressure 137 mm[Hg] Luis Enrique Ball Other [employer] Other 04-10-2023 09:30-0400 Body height 182.88 cm Luis Enrique Ball Other [employer] Other 04-10-2023 09:30-0400 Body mass index (BMI) [Ratio] 26.25 kg/m2 Luis Enrique Ball Other [employer] Other 04-10-2023 09:30-0400 Body weight 87.82 kg Luis Enrique Ball Other [employer] Other 04-10-2023 09:30-0400 Diastolic blood pressure 85 mm[Hg] Luis Enrique Ball Other [employer] Other 04-10-2023 09:30-0400 Respiratory rate 12 /min Luis Enrique Ball Other [employer] Other 04-10-2023 09:30-0400 Systolic blood pressure 135 mm[Hg] Luis Enrique Ball Other [employer] Other 01-06-2023 10:30-0400 Body height 182.88 cm Luis Enrique Ball Other [employer] Other 01-06-2023 10:30-0400 Body mass index (BMI) [Ratio] 25.96 kg/m2 Luis Enrique Ball Other [employer] Other 01-06-2023 10:30-0400 Body weight 86.82 kg Luis Enrique Ball Other [employer] Other 01-06-2023 10:30-0400 Diastolic blood pressure 77 mm[Hg] Luis Enrique Ball Other [employer] Other 01-06-2023 10:30-0400 Respiratory rate 12 /min Luis Enrique Ball Other [employer] Other 01-06-2023 10:30-0400 Systolic blood pressure 136 mm[Hg] Luis Enrique Ball Other [employer] Other 12-28-2022 11:45-0400 Body height 182.88 cm Luis Enrique Ball Other [employer] Other 12-28-2022 11:45-0400 Body mass index (BMI) [Ratio] 26.31 kg/m2 Luis Enrique Ball Other [employer] Other 12-28-2022 11:45-0400 Body weight 88 kg Luis Enrique Ball Other [employer] Other 12-28-2022 11:45-0400 Diastolic blood pressure 58 mm[Hg] Luis Enrique Ball Other [employer] Other 12-28-2022 11:45-0400 Respiratory rate 12 /min Luis Enrique Ball Other [employer] Other 12-28-2022 11:45-0400 Systolic blood pressure 94 mm[Hg] Luis Enrique Ball Other [place] [email or web address] Other Encounters Encounter Date Encounter Type Care Provider Facility Start: 01-02-2025 End: 01-02-2025 ambulatory Luis Enrique Zhao DO Work Phone: [facility] Work Phone: Start: 01-02-2025 End: 01-02-2025 Patient encounter procedure Luis Enrique Zhao DO -[facility] Work Phone: Start: 12-04-2024 End: 12-04-2024 ambulatory Luis Enrique Zhao DO Work Phone: [facility] Work Phone: Start: 12-04-2024 End: 12-04-2024 Patient encounter procedure Luis Enrique Zhao DO -[facility] Work Phone: Start: 10-04-2024 End: 10-04-2024 ambulatory [facility] Work Phone: Start: 10-04-2024 End: 10-04-2024 Patient encounter procedure Replaced By [facility] Work Phone: Start: 08-16-2024 End: 08-16-2024 ambulatory [facility] Work Phone: Start: 08-16-2024 End: 08-16-2024 Patient encounter procedure Replaced By [facility] Work Phone: Start: 07-11-2024 End: 07-11-2024 ambulatory [facility] Work Phone: Start: 07-11-2024 End: 07-11-2024 Patient encounter procedure Replaced By [facility] Work Phone: Start: 07-05-2024 Non-patient / Non-visit Replaced By [facility] [employer] Work Phone: Start: 04-10-2024 End: 04-10-2024 ambulatory [facility] Work Phone: Start: 04-10-2024 End: 04-10-2024 Patient encounter procedure Replaced By [facility] Work Phone: Start: 03-27-2024 Non-patient / Non-visit Replaced By [facility] Work Phone: Start: 01-09-2024 End: 01-09-2024 ambulatory [facility] Work Phone: Start: 01-09-2024 End: 01-09-2024 Patient encounter procedure Replaced By [facility] Work Phone: Start: 11-15-2023 Non-patient / Non-visit Replaced By [facility] Work Phone: Start: 10-10-2023 End: 10-10-2023 ambulatory [facility] Work Phone: Start: 10-10-2023 End: 10-10-2023 Patient encounter procedure Replaced By [facility] Work Phone: Start: 08-31-2023 ambulatory Lima Almaguer Samanthagurpreet [facility] Start: 07-27-2023 Non-patient / Non-visit Replaced By [facility] Work Phone: Start: 07-11-2023 End: 07-11-2023 ambulatory Luis Enrique Zhao Other [employer] Other Start: 07-11-2023 Office outpatient vi sit 25 minutes Luis Enrique Artis [facility] Start: 06-28-2023 End: 06-28-2023 ambulatory Luis Enrique Zhao Other [employer] Other Start: 06-28-2023 Telephone encounter Luis Enrique Zhao FP [facility] Start: 06-20-2023 End: 06-20-2023 ambulatory Luis Enrique Zhao Other [employer] Other Start: 06-20-2023 Telephone encounter Luis Enrique Zhao FP [facility] Start: 05-10-2023 End: 05-10-2023 ambulatory Luis Enrique Ball Other [employer] Other Start: 05-10-2023 Telephone encounter Luis Enrique Ball [facility] Start: 04-27-2023 End: 04-27-2023 ambulatory Luis Enrique Ball Other [employer] Other Start: 04-27-2023 Telephone encounter Luis Enrique Ball [facility] Start: 04-11-2023 End: 04-11-2023 ambulatory Luis Enrique Ball Other [employer] Other Start: 04-11-2023 Telephone encounter Luis Enrique Ball [facility] Start: 04-10-2023 End: 04-10-2023 ambulatory Luis Enrique Ball Other [employer] Other Start: 04-10-2023 Office outpatient vi sit 25 minutes Luis Enrique Ball [facility] Start: 03-23-2023 End: 03-23-2023 ambulatory Luis Enrique Ball Other [employer] Other Start: 03-23-2023 Telephone encounter Luis Enrique Ball [facility] Start: 01-09-2023 End: 01-09-2023 ambulatory Luis Enrique Ball Other [employer] Other Start: 01-09-2023 Telephone encounter Luis Enrique Ball [facility] Start: 01-06-2023 End: 01-06-2023 ambulatory Luis Enrique Ball Other [employer] Other Start: 01-06-2023 Patient encounter procedure Luis Enrique Ball [facility] Start: 12-28-2022 End: 12-28-2022 ambulatory Luis Enrique Ball Other [employer] Other Start: 12-28-2022 Office outpatient vi sit 25 minutes Luis Enrique Ball [facility] Start: 12-16-2022 End: 12-16-2022 ambulatory Luis Enrique Ball Other [employer] Other Start: 12-16-2022 Telephone encounter Luis Enrique [facility] Start: 12-15-2022 End: 12-15-2022 ambulatory Luis Enrique Zhao Other [employer] Other Start: 12-15-2022 Telephone encounter Luis Enrique [facility] Start: 12-02-2022 End: 12-02-2022 ambulatory Luis Enrique Zhao Other [employer] Other Start: 12-02-2022 Telephone encounter Luis Enrique SHIR[facility] Start: 03-31-2022 End: 04-01-[address] LUIS ENRIQUE ZHAO Facility:[facility] Start: 01-05-2022 End: 01-06-[address] LUIS ENRIQUE ZHAO Facility:[facility] Start: 01-04-2022 Adult health examination Luis Enrique Zhao Other [employer] Other Start: 01-04-2022 Encounter for genera l adult medical examination without abnormal findings Luis Enrique Zhao Other [employer] Other Start: 09-27-2021 End: 09-28-[address] LUIS ENRIQUE ZHAO Facility:[facility] Start: 06-29-2021 End: 06-30-[address] LUIS ENRIQUE ZHAO Facility:[facility] Procedures Date Procedure Procedure Detail Performing Clinician Start: 08-31-2023 Computerized ophthal tawny imaging retina October Rashed Start: 08-31-2023 Eylea 1mg Pre-filled Syringe October Rashedy Start: 08-31-2023 Intravitreal njx pharmacologic agt spx October Rash Start: 05-21-2015 Screening for malign ant neoplasm of colon Luis Enrique Artis Other Depression screening Genaro Zhao Other Screening for malign ant neoplasm of breast Luis Enrique Artis Other Screening for malign ant neoplasm of prostate Luis Enrique Zhao Other Plan of Treatment Date Care Activity Detail Author Comprehensive metabo lic 2000 panel - Serum or Plasma [facility] enter Comprehensive metabo lic 1999 panel - Serum or Plasma [facility] enter Microalbumin [Mass/volume] in Urine [facility] Immunizations Immunization Date Immunization Notes Care Provider Fa cility 04-10-2023 influenza virus vaccine, unspecified formulation [facility] 04-10-2023 influenza, high dose seasonal, preservative-free Luis Enrique Zhao Other [facility] [employer] Other 03-25-2022 influenza virus vaccine, unspecified formulation [facility] 03-25-2022 influenza, high dose seasonal, preservative-free Luis Enrique Zhao Other [facility] [employer] Other 04-27-2021 COVID-19 Vaccine Pfi zer - Documentation Purposes Only Luis Enrique Zhao Other [facility] 03-25-2021 influenza virus vaccine, split virus (incl. purified surface antigen) Luis Enrique Zhao Other [facility] [employer] Other 03-25-2021 influenza virus vaccine, unspecified formulation [facility] 02-27-2020 influenza virus vaccine, split virus (incl. purified surface antigen) Luis Enrique Artis Other [facility] [employer] Other 02-27-2020 influenza virus vaccine, unspecified formulation [facility] 03-28-2019 influenza virus vaccine, split virus (incl. purified surface antigen) Luis Enrique hZao Other [facility] [employer] Other 03-28-2019 influenza virus vaccine, unspecified formulation [facility] 02-21-2018 influenza virus vaccine, split virus (incl. purified surface antigen) Luis Enrique Zhao Other [employer] Other 02-21-2018 influenza virus vaccine, unspecified formulation [facility] 03-14-2017 influenza virus vaccine, split virus (incl. purified surface antigen) Luis Enrique Zhao Other [employer] Other 03-14-2017 influenza virus vaccine, unspecified formulation [facility] 03-18-2016 influenza virus vaccine, split virus (incl. purified surface antigen) Luis Enrique Zhao Other [facility] [employer] Other 03-18-2016 influenza virus vaccine, unspecified formulation [facility] 05-21-2015 pneumococcal conjuga te vaccine, 13 valent Luis Enrique Zhao Other [facility] 03-13-2015 influenza virus vaccine, split virus (incl. purified surface antigen) Luis Enrique Zhao Other [facility] [employer] Other 03-13-2015 influenza virus vaccine, unspecified formulation [facility] 09-23-2014 diphtheria, tetanus toxoids and acellular pertussis vaccine, unspecified formulation Luis Enrique Zhao Other [facility] 03-17-2014 tetanus and diphther ia toxoids, adsorbed, preservative free, for adult use (5 Lf of tetanus toxoid and 2 Lf of diphtheria toxoid) Luis Enrique Zhao Other [facility] 03-18-2013 tetanus and diphther ia toxoids, adsorbed, preservative free, for adult use (5 Lf of tetanus toxoid and 2 Lf of diphtheria toxoid) Luis Enrique Artis Other [facility] 04-16-2008 pneumococcal polysaccharide vaccine, 23 valent Luis Enrique Zhao Other [facility] Payers Date Payer Category Payer Unknown [id number] 1961 Medicare [id number] 1945 Unknown [id number] [id number] [id number] 1945 Unknown [id number] [id number] [id number] 1945 Unknown [id number] [id number] [id number] 1945 Unknown [id number] [id number] [id number] 1945 Unknown [id number] [id number] [id number] Social History Date Type Detail Facility Sex Assigned At [facility] [employer] Other Start: 1945 Sex Assigned At Male F [facility] Start: 01-09-2024 End: 01-09-2024 Tobacco smoking status NVIS Ex-smoker (finding) [facility] Start: 07-11-2024 End: 10-04-2024 Sex Male (finding) [facility] Medical Equipment Procedure Code Equipment Code Equipment Origin al Text Equipment Identifier Dates Pen [employer] [place] [id number] X 5 MM Start: 04-10-2023 Blood Sugar Diagnostic (True Metrix Glucose Test Strip) strip Start: 02-19-2024 Blood Sugar Diagnostic (True Metrix Glucose Test Strip) strip Start: 02-19-2024 End: 02-19-2024 Blood Sugar Diagnostic (True Metrix Glucose Test Strip) strip Start: 02-19-2024 Blood Sugar Diagnostic (True Metrix Glucose Test Strip) strip Start: 02-19-2024 End: 02-19-2024 Blood Sugar Diagnostic (True Metrix Glucose Test Strip) strip Start: 02-19-2024 Blood Sugar Diagnostic (True Metrix Glucose Test Strip) strip Start: 02-19-2024 End: 02-19-2024 Blood Sugar Diagnostic (True Metrix Glucose Test Strip) strip Start: 02-19-2024 Blood Sugar Diagnostic (True Metrix Glucose Test Strip) strip Start: 02-19-2024 End: 02-19-2024 Blood Sugar Diagnostic (True Metrix Glucose Test Strip) strip Start: 02-19-2024 Blood Sugar Diagnostic (True Metrix Glucose Test Strip) strip Start: 02-19-2024 End: 02-19-2024 Blood Sugar Diagnostic (True Metrix Glucose Test Strip) strip Start: 02-19-2024 Blood Sugar Diagnostic (True Metrix Glucose Test Strip) strip Start: 02-19-2024 End: 02-19-2024 Clinical Notes 12-15-2022 to 10-04-2024 Note Date & Type Note Facility 10-04-2024 Evaluation note Diagnosis Onset Date Resolution Benign prostatic hyperplasia with lower urinary tract symptoms acute September 8:56am Candidal balanitis acute October 04, 2024 8:56am Elevated cholesterol acute Apri l 2024 8:56am GERD (gastroesophageal reflux disease) acute October 04, 2024 8:56am Hypertension acute October 04, 2024 8:56am Passage of loose stools acute A 2024 8:56am Type 2 diabetes mellitus with hyperglycemia acute October 04 8:56am Benign prostatic hyperplasia with lower urinary tract symptoms acute November 11:41am Hypertension acute December 04 11:41am Type 2 diabetes mellitus with hyperglycemia acute December 04 11:41am [facility] Work Phone: 1(345) 756-192704-25-2025 Evaluation note* Diagnosis Onset Date Resolution Status Admit Date Benign prostatic hyperplasia with lower urinary tract symptoms acute October 04, 2024 8:56am Elevated cholesterol acute 2024 8:56am GERD (gastroesophageal reflu x disease) acute October 04, 2024 8:56am Hypertension acute October 04, 2024 8:56am Passage of loose stools acute A 2024 8:56am Type 2 diabetes mellitus wit h hyperglycemia acute October 04, 2024 8:56am Candidal balanitis resolved October 04, 2024 8:56am Dizziness on standing acute Nov 11:41am Hypertension acute December 04, 025 11:41am Type 2 diabetes mellitus wit h hyperglycemia acute December 04, 2024 11:41am Benign prostatic hyperplasia with lower urinary tract symptoms acute January 02, 2025 8:49am Elevated cholesterol acute January 02, 2025 8:49am GERD (gastroesophageal reflu x disease) acute January 02, 2025 8:49am Hypertension acute January 02 025 8:49am Medicare annual wellness vis it, subsequent acute January 02, 2025 8:49am Type 2 diabetes mellitus wit h hyperglycemia acute January 02, 2025 8:49am [facility] Work Phone: 1(211) 891-754001-30-2025 Evaluation note* Diagnosis Onset Date Resolution Status Admit Date Benign prostatic hyperplasia with lower urinary tract symptoms acute July 11 8:55am Elevated cholesterol acute 2024 8:55am GERD (gastroesophageal reflu x disease) acute July 11 8:55am Hypertension acute June 8:55am Passage of loose stools acute J anuary 2024 8:55am Type 2 diabetes mellitus wit h hyperglycemia acute July 11 8:55am [facility] Work Phone: 1(895) 874-956901-30-2025 Evaluation note* Diagnosis Onset Date Resolution Status Admit Date Benign prostatic hyperplasia with lower urinary tract symptoms acute July 11 8:55am Elevated cholesterol acute 2024 8:55am GERD (gastroesophageal reflu x disease) acute July 11 8:55am Hypertension acute June 8:55am Passage of loose stools acute J anuary 2024 8:55am Type 2 diabetes mellitus wit h hyperglycemia acute July 11 8:55am Influenza A noneactive August 16 9:11am Acute bronchitis due to othe r specified organisms noneactive August 16, 9:11am Benign prostatic hyperplasia with lower urinary tract symptoms acute October 04, 2024 8:56am Elevated cholesterol acute Apri l 2024 8:56am GERD (gastroesophageal reflu x disease) acute October 04, 2024 8:56am Hypertension acute October 04, 2024 8:56am Passage of loose stools acute A pril 2024 8:56am Type 2 diabetes mellitus wit h hyperglycemia acute October 04, 2024 8:56am [facility] Work Phone: 1(990) 931-837101-30-2024 Evaluation note* Encounter Date Diagnosis Assessment Notes Treatment Notes Treatment Clinical Notes Jun, Type 2 diabetes mellitus with [...] home readings in 2 weeks. Jun, Hyperlipidemia, mixe d (ICD-10 - E78.2) Instructed [...] remission (ICD-10 - F17.211) Jun, Other iron deficienc y anemia (ICD-10 - D50.8) Donating blood every 60 days. Denies heartburn or dysphagia Denies abd pain, melena or hematochezia Last Scope in 2013. Continue to monitor, suggest holding on further donation of blood [employer] Other 01-09-2024 Evaluation note* Encounter Date Diagnosis Assessment Notes Treatment Notes Treatment Clinical Notes Jun, Anemia due to other cause, not classified (ICD-10 - D64.89) [employer] Other 11-16-2023 Evaluation note* Encounter Date Diagnosis Assessment Notes Treatment Notes Treatment Clinical Notes Apr, Type 2 diabetes mellitus with diabetic polyneuropathy, without long-term current use of insulin (ICD-10 - E11.42) [employer] Other 10-30-2023 Evaluation note* Encounter Date Diagnosis [...] Fe studies 9 years since last scope [employer] Other 07-28-2023 Evaluation note* Encounter Date Diagnosis [...] dependence, cigarettes, in remission (ICD-10 - F17.211) [employer] Other 07-19-2023 Evaluation note* Encounter Date Diagnosis [...] habits No melena or hematochezia Recheck CBC [employer] Other 07-06-2023 Evaluation note* Encounter Date Diagnosis Assessment Notes Treatment Notes Treatment Clinical Notes Dec, Bruit of right carotid artery (ICD-10 - R09.89) Carotid US: < 50% - 12/2022 [employer] Other Evaluation noteNo [email or web address] Other Evaluation note* Diagnosis Onset Date Resolution Status Anemia acute Benign prostatic hyperplasia with lower urinary tract symptoms acute Elevated cholesterol acute GERD (gastroesophageal reflux disease) acute Hypertension acute Type 2 diabetes mellitus with hyperglycemia acute [facility] Work Phone: Evaluation note* Diagnosis Onset Date Resolution Status Anemia acute Benign prostatic hyperplasia with lower urinary tract symptoms acute Elevated cholesterol acute GERD (gastroesophageal reflux disease) acute Hypertension acute Type 2 diabetes mellitus with hyperglycemia acute Medicare annual wellness visit, subsequent noneactive [facility] Work Phone: Evaluation note* Diagnosis Onset Date Resolution Status Benign prostatic hyperplasia with lower urinary tract symptoms acute Elevated cholesterol acute GERD (gastroesophageal reflux disease) acute Hypertension acute Type 2 diabetes mellitus with hyperglycemia acute [facility] Work Phone: Evaluation note* Diagnosis Onset Date Resolution Status Admit Date Benign prostatic hyperplasia with lower urinary tract symptoms acute July 11 8:55am Elevated cholesterol acute Willie obdulio 2024 8:55am GERD (gastroesophageal reflu x disease) acute July 11 8:55am Hypertension acute June 8:55am Passage of loose stools acute J anuary 2024 8:55am Type 2 diabetes mellitus wit h hyperglycemia acute July 11 8:55am [facility] Work Phone: History general Narrative - Reported* Type Description Date Medical History Anemia in other 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 jacquelin diseases classified elsewhere Medical History Benign [...] sp ecified organisms Surgical History VASECTOMY COLONOSCOPY 2009.2013 Surgical History EGD 08/2013 Hospitalization History SEE SURGICAL HX [employer] Other Reason for referral (narrative)No reason for referral [facility]: Summary Purpose Family History No Family History Records FoundNo Family History Records Found Advance Directives Advance Directive Response Recorded Date/ Time Advance Directives No July 11, 2023 11:19am Advance Directive Response Recorded Date/ Time Advance Directives No July 11, 2023 10:19am Chief Complaint and Reason for Visit Chief Complaint Admit Date 3 month f/u July 11, 2024 8 :55am cough, sore throat, headaches August 16, 2024 9:11am Reason for Visit Admit Date Benign prostatic hyperplasia with lower urinary tract symptoms July 11, 2024 8:55am Elevated cholesterol July 11, 2024 8:55am GERD (gastroesophageal reflux disease) J anuary 2024 8:55am Hypertension July 11, 2024 8 :55am Passage of loose stools July 11 8:55am Type 2 diabetes mellitus with hyperglyce sue July 11, 2024 8:55am Chief Complaint Amb Documentation 3 month follow [...] with hyperglycemia Medicare annual wellness visit, subsequent Chief Complaint 3 month f/u Reason for Visit Benign prostatic hyp erplasia with lower urinary tract symptoms Elevated cholesterol GERD (gastroesophageal reflux disease) Hypertension Type 2 diabetes mellitus with hyperglycemia Chief Complaint Admit Date 3 month f/u July 11, 2024 8 :55am Chief Complaint Admit Date 3 month f/u July 11, 2024 8 :55am cough, sore throat, headaches August 16, 2024 9:11am 3 month f/u October 04, 2024 8:5 6am Reason for Visit Admit Date Benign prostatic hyperplasia with lower urinary tract symptoms July 11, 2024 8:55am Elevated cholesterol July 11, 2024 8:55am GERD (gastroesophageal reflux disease) J anuary 2024 8:55am Hypertension July 11, 2024 8 :55am Passage of loose stools July 11 8:55am Type 2 diabetes mellitus with hyperglyce sue July 11, 2024 8:55am Influenza A August 16, 2024 9:11 am Acute bronchitis due to other specified organisms August 16, 2024 9:11am Benign prostatic hyperplasia with lower urinary tract symptoms October 04, 2024 8:56am Elevated cholesterol October 04, 2024 8: 56am GERD (gastroesophageal reflux disease) A pri 2024 8:56am Hypertension October 04, 2024 8:5 6am Passage of loose stools October 04, 2024 8:56am Type 2 diabetes mellitus with hyperglyce sue October 04, 2024 8:56am Chief Complaint Admit Date 3 month f/u October 04, 2024 8:5 6am BP concern/lightheadedness December 04 11:41am Reason for Visit Admit Date Benign prostatic hyperplasia with lower urinary tract symptoms October 04, 2024 8:56am Candidal balanitis October 04, 2024 8:5 6am Elevated cholesterol October 04, 2024 8: 56am GERD (gastroesophageal reflux disease) A [facility]2024 8:56am Hypertension October 04, 2024 8:5 6am Passage of loose stools October 04, 2024 8:56am Type 2 diabetes mellitus with hyperglyce sue October 04, 2024 8:56am Benign prostatic hyperplasia with lower urinary tract symptoms December 04, 2024 11:41am Hypertension December 04, 2024 11:4 1am Type 2 diabetes mellitus with hyperglyce sue December 04, 2024 11:41am Chief Complaint Admit Date 3 month f/u October 04, 2024 8:5 6am BP concern/lightheadedness December 04 11:41am 3 month f/u January 02, 2025 8:49 am Reason for Visit Admit Date Benign prostatic hyperplasia with lower urinary tract symptoms October 04, 2024 8:56am Elevated cholesterol October 04, 2024 8: 56am GERD (gastroesophageal reflux disease) A [facility]2024 8:56am Hypertension October 04, 2024 8:5 6am Passage of loose stools October 04, 2024 8:56am Type 2 diabetes mellitus with hyperglyce sue October 04, 2024 8:56am Candidal balanitis October 04, 2024 8:5 6am Dizziness on standing December 04, 2024 11 :41am Hypertension December 04, 2024 11:4 1am Type 2 diabetes mellitus with hyperglyce sue December 04, 2024 11:41am Benign prostatic hyperplasia with lower urinary tract symptoms January 02, 2025 8:49am Elevated cholesterol January 02, 2025 8:4 9am GERD (gastroesophageal reflux disease) J [facility] 2024 8:49am Hypertension January 02, 2025 8:49 am Medicare annual wellness visit, subseque nt January 02, 2025 8:49am Type 2 diabetes mellitus with hyperglyce sue January 02, 2025 8:49am Additional Source Comments (unrecognized sect ion and content) No Status Records FoundNo Status Records Found INFORMATION SOURCE (unrecogn ized section and content) DATE CREATED AUTHOR 04/06/2022 [facility] DATE CREATED AUTHOR AUTHOR'S ORGANIZ ATION 07/30/2024 [facility] REASON FOR VISIT (unrecogniz ed section and content) DiarrheaNo InformationTestin g resultsBP TROUBLESWellnessHolter ootukdsD7M results3 month Follow up/FLU ShotLab resultsFYI TrulicityReminderrepeat labsLab results3 month Follow up Care Teams (unrecognized sec tion and content) Team Status: Active Member Role Status Asaf Zhao DO Primary Care Provider Active Team Status: Inactive Member Role Status Asaf Zhao DO Primary Care Provide r, Attending Provider Active Start: July 11, 2024 End: July 11, 2024 Team Status: Inactive Member Role Status Asaf Zhao DO Primary Care Provide r, Attending Provider Active Start: August 16, 2024 End: August 16, 2024 Team Status: Inactive Member Role Status Asaf Zhao DO Primary Care Provide r, Attending Provider Active Start: October 04, 2024 End: October 04, 2024 Team Status: Active Member Role Status Asaf Zhao DO Primary Care Provider Active Start: July 27, 2023 KOKO Choudhary Attending Provider Active Start : July 27, 2023 Team Status: Inactive Member Role Status Asaf Zhao DO Primary Care Provide r, Attending Provider Active Start: October 10, 2023 End: October 10, 2023 Team Status: Active Member Role Status Asaf Zhao DO Primary Care Provide r, Attending Provider Active Start: November 15, 2023 Team Status: Inactive Member Role Status Asaf Zhao DO Primary Care Provide r, Attending Provider Active Start: January 09, 2024 End: January 09, 2024 Team Status: Active Member Role Status Asaf Zhao DO Primary Care Provide r, Attending Provider Active Start: March 27, 2024 Team Status: Inactive Member Role Status Asaf Zhao DO Primary Care Provide r, Attending Provider Active Start: April 10, 2024 End: April 10, 2024 Team Status: Active Member Role Status Dates Luis Enrique Zhao DO Primary Care Provide r, Attending Provider Active Start: July 05, 2024 Team Status: Inactive Member Role Status Dates Luis Enrique Zhao , Primary Care Provider Active Start: October 04, 2024 End: October 04, 2024 Luis Enrique Zhao , Attending Provider Active Sta rt: October 04, 2024 End: October 04, 2024 Team Status: Inactive Member Role Status Dates Luis Enrique Zhao , Primary Care Provider Active Start: December 04, 2024 End: December 04, 2024 Luis Enrique Zhao , Attending Provider Active Sta rt: December 04, 2024 End: December 04, 2024 Team Status: Inactive Member Role Status Dates Luis Enrique Zhoa DO Primary Care Provider Active Start: January 02, 2025 End: January 02, 2025 Luis Enrique Zhao , Attending Provider Active Sta rt: January 02, 2025 End: January 02, 2025 Goals (unrecognized section and content) Goals may [...] BE BASED ON THE PRIMARY CLINICAL RECORDS. [facility] [employer] provides no warranty or guarantee of the accuracy or completeness of information in this document.
[2025-01-02 10:21] LABS: Microalbum Creatinine Ratio Ur 26.2 mg/g (0.0-29.9)
[2025-01-02 10:24] LABS: Hematocrit 36.1 % (42.0-54.0); Hemoglobin 12.2 g/dL (14.0-18.0); Immature Granulocytes Abs Auto 0.02 10^3/uL (0.00-0.03); Immature Granulocytes Pct Auto 0.4 % (0.0-0.5); Lymphocytes Absolute Auto 1.8 10^3/uL (1.2-3.8); Mean Corpuscular HGB Conc 33.8 g/dL (29.9-35.2); Mean Corpuscular Hemoglobin 32.3 pg (25.9-34.0); Mean Corpuscular Volume 95.5 fL (80.0-94.0); Platelet Count 144 10^3/uL (150-450); Red Blood Count 3.78 10^6/uL (4.70-6.10); White Blood Count 4.7 10^3/uL (4.0-11.0)
[2025-01-02 10:25] LABS: Alanine Aminotransferase 22 U/L (16-63); Albumin Globulin Ratio 1.1; Albumin Level 3.9 g/dL (3.4-5.0); Alkaline Phosphatase 69 U/L (46-116); Anion Gap 13.9; Aspartate Amino Transferase 18 U/L (15-37); Blood Urea Nitrogen 17.0 mg/dL (7.0-18.0); Calcium 8.9 mg/dL (8.5-10.1); Carbon Dioxide 27.2 mmol/L (21.0-32.0); Chloride 104 mmol/L (98-107); Cholesterol 157 mg/dL (<=200); Estimated GFR (African America >60 (>=60 mL/min/1.73m^2); Estimated GFR (Non-African Ame >60 (>=60 mL/min/1.73m^2); Globulin 3.4 g/dL; Glucose 138 mg/dL (74-106); HDL Cholesterol 50 mg/dL (40-60); Potassium 4.1 mmol/L (3.5-5.1); Sodium 141 mmol/L (136-145); Total Protein 7.3 g/dL (6.4-8.2); Triglycerides 157 mg/dL (<=150); VLDL CHOLESTEROL 31.4 mg/dL
[2025-01-02 11:12] LABS: Folate 35.00 ng/mL (8.60-58.90)
[2025-01-02 11:36] LABS: Iron 95.0 ug/dL (65.0-175.0); Percent Iron Saturation 27.1 %; Total Iron Binding Capacity 350.0 ug/dL (250.0-450.0)
[2025-01-03 06:12] LABS: Vitamin B12 254 pg/mL (232-1245)
== END 2025-01-02 09:39 | disposition home or self-care (01) ==
LOC: LAB 09:42
PROVIDERS: PCP Internal Medicine; Visit Provider Internal Medicine
DX: E11.65 Type 2 diabetes mellitus with hyperglycemia (principal); E78.00 Pure hypercholesterolemia, unspecified; I10 Essential (primary) hypertension; D50.0 Iron deficiency anemia secondary to blood loss (chronic); D64.9 Anemia, unspecified
CPT/HCPCS: 36415; 80053; 80061; 82043; 82570; 82607; 82728; 82746; 83540; 83550; 85025